=== PATIENT | female | born 1940 | race Caucasian/White ===

== ENCOUNTER 2016-04-19 15:50 | Outpatient (CLI) | payer MEDICARE, OTHER | END 2016-04-19 15:51 | disposition home or self-care (01) | DX: T14.90 Injury, unspecified (principal) ==

== ENCOUNTER 2016-07-15 09:08 | Day surgery (SDC) | payer MEDICARE, OTHER ==
[~2016-07-15 09:08] MED LIST: PHENYLEPHRINE 2.5% OPHTH 2 ML DROPS ONE
[2016-07-15] MEDS ORDERED: KETOROLAC 0.45% OPHTH DROPS OPTH ONE (10:01)
[2016-07-15] MEDS ORDERED: PROPARACAINE 0.5% OPHTH DROPS 15 ML OPTH ONE ×2 (10:01→10:27)
[2016-07-15] MEDS ORDERED: PHENYLEPHRINE 2.5% OPHTH 2 ML DROPS OPTH ONE (10:01)
[2016-07-15] MEDS ORDERED: CYCLOPENTOLATE 1% OPHTH DROPS 2 ML OPTH ONE (10:01)
[2016-07-15] MEDS ORDERED: LACTATED RINGERS 500 ML IV ONE (10:09)
[2016-07-15] MEDS ORDERED: BSS/LIDOCAINE/EPINEPHRINE 1 ML SYRINGE IO ONE ×2 (10:27)
[2016-07-15] MEDS ORDERED: EPINEPHrine 1 MG/ML AMP IVP ONE (10:27)
[2016-07-15] MEDS ORDERED: CHONDR SULF/HYALURONATE SYRINGE IO ONE (10:27)
[2016-07-15] MEDS ORDERED: TRIAMCIN/MOXIFLOX/VANCO 1 ML VIAL IO ONE ×2 (10:27)
[2016-07-15] MEDS ORDERED: BRIMONIDINE 0.2% OPHTH DROPS 5 ML OPTH ONE (10:27)
[2016-07-15] MEDS ORDERED: TIMOLOL 0.5% OPHTH DROPS OPTH ONE (10:27)
[2016-07-15] MEDS ORDERED: LIDOCAINE-MPF 2% 5 ML VIAL IM ONE (10:31)
[2016-07-15] MEDS ORDERED: PROPOFOL 200 MG/20 ML VIAL IVP ONE (10:31)
[2016-07-15] MEDS ORDERED: MIDAZOLAM 2 MG/2 ML VIAL IVP ONE (10:31)
[2016-07-15 10:57] VITALS: BP 137/60
--- NOTE | 2016-07-15 14:30 | OPERATIVE REPORT ---
DATE OF SURGERY: 07/15/2016 00:00:00 PREOPERATIVE DIAGNOSIS: Visually significant cataract, right eye. Cataract surgery was performed on t he left eye on 01/08/2016. POSTOPERATIVE DIAGNOSIS: Visually significant cataract, right eye. Cataract surgery was performed on the left eye on 01/08/2016. NAME OF PROCEDURE: Phacoemulsification posterior chamber intraocular lens implant, right eye with las er assist. SURGEON: Favian Hernandez MD. ANESTHESIA: Monitored anesthesia care. COMPLICATIONS: None. OPERATIVE INDICATIONS: This is a 76-year-old woman with progressive vision loss in the right eye due to 2+ nuclear sclerotic and 1+ posterior subcapsular and macular cataract. Best corrected visual acui ty was 20/20 with glare to 20/40 in the right eye. Indications for surgery were difficulty driving at night because of headlights from other vehicles or street lights and difficulty tracking a golf ball . She was consented at length concerning the risks and benefits of cataract surgery, after which she expressed a desire to proceed with surgery. OPERATIVE PROCEDURE: The patient was taken to OR #2 and placed under monitored anesthesia care. A jonathan gical time-out was conducted confirming the correct patient, correct procedure and correct surgical s ite. She was placed on the LenSx laser and her eye docked to the laser interface. The laser performed a capsulotomy, lens softening, phaco wounds, and arcuate keratotomy incisions. She was then moved to the operating microscope, given topical anesthesia, and then prepped and draped in the usual sterile fashion. The eye was entered at the 12 and 9 o'clock positions. Intracameral Shugarcaine was injecte d into the anterior chamber, followed by Viscoat. Capsulorrhexis flap created by the LenSx laser was removed from the anterior chamber. The nucleus was hydrodissected and phacoemulsified. The cortex was evacuated using automated infusion aspiration. Provisc was injected into the capsular bag and a 20.5 diopter intraocular lens was inserted into the bag. Approximately 0.8 mL of a mixture of triamcinolo ne, moxifloxacin, and vancomycin was injected subconjunctivally in the superior quadrant for infectio us and inflammation prophylaxis. I/A was used to evacuate the viscoelastic materials. The eye was inf lated to a physiologic pressure using balanced salt solution and found to be watertight. The patient was taken from the operating room in good condition and given postoperative instructions. JOB #: [id number] EXT JOB #:[id number]
== END 2016-07-15 09:09 | disposition home or self-care (01) ==
LOC: SDS 09:08
PROVIDERS: ATTEND Ophthalmology
PROC: 08RJ3JZ Replacement of Right Lens with Synthetic Substitute, Percutaneous Approach (ICD-10-PCS; principal; 2016-07-15 10:00)
DX: H25.811 Combined forms of age-related cataract, right eye (principal); I10 Essential (primary) hypertension; E11.9 Type 2 diabetes mellitus without complications; Z87.891 Personal history of nicotine dependence
CPT/HCPCS: 66984; A9270; V2632

== ENCOUNTER 2016-07-21 08:00 | Outpatient (CLI) | payer MEDICARE, OTHER | END 2016-07-21 23:59 | disposition home or self-care (01) | LOC: LAB.WCP 08:00 | PROVIDERS: ATTEND Physician Assistant Medical | DX: R31.0 Gross hematuria (principal) | CPT/HCPCS: 87086 ==

== ENCOUNTER 2016-07-26 17:16 | Outpatient (CLI) | payer MEDICARE, OTHER | END 2016-07-26 17:17 | disposition critical access hospital (66) | LOC: EMS 17:16 | PROVIDERS: ATTEND Surgery | DX: R20.2 Paresthesia of skin (principal); T36.95XA Adverse effect of unspecified systemic antibiotic, initial encounter | CPT/HCPCS: A0425; A0429 ==

== ENCOUNTER 2016-07-26 17:48 | Emergency (ER) | payer MEDICARE, OTHER ==
[2016-07-26 17:56] VITALS: BP 177/80
--- NOTE | 2016-07-26 18:01 | ED Physician Documentation ---
History of Present Illness - Stated complaint Stated Complaint: TINGLING NECK/FACEARMS - Chief complaint Chief Complaint: General - History obtained from History obtained from: Patient - Additonal information Additional information: Recently diagnosed with perioperative glaucoma cataract repair, started on a acetazolamide today and 20 minutes later developed diffuse tingling up and down the arms and across the shoulder blades which is now mostly resolved. Had already contacted the turntable operator office who recommends cessation of the acetazolamide until she is seen again tomorrow. Review of Systems Constitutional: denies: Fever, Chills Cardiac: denies: Chest pain / pressure, Palpitations Respiratory: denies: Dyspnea, Cough GI: denies: Abdominal Pain PD PAST MEDICAL HISTORY - Past Medical History Past Medical History: Yes Cardiovascular: Hypertension, High cholesterol Respiratory: None Endocrine/Autoimmune: Type 2 diabetes GI: None : Frequency HEENT: Other Psych: None Musculoskeletal: Osteoarthritis, Other Derm: Other - Past Surgical History Past Surgical History: Yes General: Cholecystectomy Ortho: Carpal Tunnel surgery - Present Medications Home Medications: Ambulatory Orders Medication Instructions Recorded Confirmed Aspirin [Aspir-Low] 1 tab PO DAILY 01/07/16 07/15/16 Atenolol 50 mg PO DAILY 01/07/16 07/15/16 Lisinopril 1 tab PO BID 01/07/16 07/15/16 metFORMIN [Glucophage] 0.5 tab PO QDBREAKFAST 01/07/16 07/15/16 metFORMIN [Glucophage] 1 tab PO QDDINNER 01/07/16 07/15/16 Insulin Glargine,Hum.rec.anlog 36 unit SQ DAILY 07/15/16 07/15/16 [Lantus] - Allergies Allergies/Adverse Reactions: Allergies Allergy/AdvReac Type Severity Reaction Status Date / Time No Known Drug Allergies Allergy Verified 01/07/16 14:00 - Social History Does the pt smoke?: No Smoking Status: Never smoker PD ED PE NORMAL - Vitals Vital signs reviewed: Yes - General General: Alert and oriented X 3, No acute distress - HEENT HEENT: Ears normal, Pharynx benign - Neck Neck: Supple, no meningeal sign, No bony TTP - Cardiac Cardiac: RRR, No murmur - Respiratory Respiratory: No respiratory distress, Clear bilaterally - Abdomen Abdomen: Non tender - Neuro Neuro: Alert and oriented X 3, ply cutter 2-12 intact, No motor deficit, No sensory deficit, Normal speech - Psych Psych: Normal mood, Normal affect Results - Vitals Vitals: Vital Signs - 24 hr 07/26/16 17:52 Temperature 36.6 C Heart Rate 73 Respiratory 18 Rate Blood Pressure 177/80 H O2 Saturation 98 Oxygen O2 Source Room air PD MEDICAL DECISION MAKING - ED course ED course: Since with resolving diffuse tingling, a medication side effect after a new medication which she will be held, there is already improvement in her symptoms without specific treatment. Departure - Departure Disposition: 01 Home, Self Care Clinical Impression: Medication side effect Condition: Good Record reviewed to determine appropriate education?: Yes Comments: Follow up with Dr. Hernandez tomorrow for replacement for the medication. Return if worse. Your blood pressure was elevated today on check in to the emergency department. This does not mean that you have hypertension, it is a common phenomenon to check into the emergency department and have elevated blood pressure. I recommend that you see your primary care physician within the week to have it rechecked when you're feeling better.
== END 2016-07-26 18:19 | disposition home or self-care (01) ==
LOC: EDUNIT# → ED 17:48
DX: R20.2 Paresthesia of skin (principal); T50.2X5A Adverse effect of carbonic-anhydrase inhibitors, benzothiadiazides and other diuretics, initial encounter; I10 Essential (primary) hypertension; E78.00 Pure hypercholesterolemia, unspecified; E11.9 Type 2 diabetes mellitus without complications; Z79.4 Long term (current) use of insulin; Z79.84 Long term (current) use of oral hypoglycemic drugs; M19.90 Unspecified osteoarthritis, unspecified site; Z79.82 Long term (current) use of aspirin
CPT/HCPCS: 99282; 99283

== ENCOUNTER 2016-08-13 05:21 | Outpatient (CLI) | payer MEDICARE, OTHER | END 2016-08-13 05:22 | disposition EMS.NT | LOC: EMS 05:21 | PROVIDERS: ATTEND Surgery | DX: Z03.89 Encounter for observation for other suspected diseases and conditions ruled out (principal); W06.XXXA Fall from bed, initial encounter; Y92.003 Bedroom of unspecified non-institutional (private) residence as the place of occurrence of the external cause ==

== ENCOUNTER 2016-09-16 09:38 | Outpatient (CLI) | payer MEDICARE, OTHER ==
[2016-09-16 12:54] LABS: ALBUMIN/GLOBULIN RATIO 1.2 (1.0-2.2); BILIRUBIN,TOTAL 0.8 mg/dL (0.2-1.0); BUN - BLOOD UREA NITROGEN 18 mg/dL (6-20); CALCIUM 9.2 mg/dL (8.5-10.3); CARBON DIOXIDE - CO2 29 mmol/L (21-32); CHLORIDE 105 mmol/L (101-111); CHOL/HDL RATIO 3.4 (<4.4); CHOLESTEROL 123 mg/dL; CREATININE 0.8 mg/dL (0.4-1.0); GFR - MDRD 70 (>89); GLUCOSE 102 mg/dL (70-100); HDL CHOLESTEROL 36 mg/dL; LDL/HDL RATIO 1.9 (<4.4); SODIUM 139 mmol/L (135-145); TOTAL PROTEIN 6.9 g/dL (6.7-8.2); TRIGLYCERIDES 101 mg/dL; VLDL CHOLESTEROL 20 mg/dL
[2016-09-16 13:09] LABS: HEMOGLOBIN A1C 0.57 g/dL
== END 2016-09-16 09:39 | disposition home or self-care (01) ==
LOC: LAB.WCP 09:38
PROVIDERS: ATTEND Physician Assistant Medical
DX: E11.9 Type 2 diabetes mellitus without complications (principal)
CPT/HCPCS: 36415; 80053; 80061; 83036

== ENCOUNTER 2016-11-09 09:58 | Outpatient (CLI) | payer MEDICARE, OTHER | END 2016-11-09 09:59 | disposition EMS.NT | LOC: EMS 09:58 | PROVIDERS: ATTEND Surgery | DX: Z03.89 Encounter for observation for other suspected diseases and conditions ruled out (principal); W05.0XXA Fall from non-moving wheelchair, initial encounter; Y92.003 Bedroom of unspecified non-institutional (private) residence as the place of occurrence of the external cause ==

== ENCOUNTER 2016-11-30 14:50 | Outpatient (CLI) | payer MEDICARE, OTHER | END 2016-11-30 14:51 | disposition critical access hospital (66) | LOC: EMS 14:50 | PROVIDERS: ATTEND Surgery | DX: R53.1 Weakness (principal) | CPT/HCPCS: A0425; A0427 ==

== ENCOUNTER 2016-11-30 15:24 | Emergency (ER) | payer MEDICARE, OTHER ==
--- NOTE | 2016-11-30 16:01 | ED Physician Documentation ---
History of Present Illness - Stated complaint Stated Complaint: WEAK - Chief complaint Chief Complaint: General - History obtained from History obtained from: Patient - History of Present Illness Timing: Other (This is a 76-year-old woman with glaucoma and type 2 diabetes, she is maintained on Lantus at night and she takes numerous blood pressure medications. She recently started on new medications for her glaucoma including atenolol, and over the last few days has had increasing weakness in the arms and legs not associated with shortness of breath, dizziness, or chest pain. Prior to arrival she was hypoglycemic and administered D50.) Review of Systems Ten Systems: 10 systems reviewed and negative Constitutional: denies: Fever, Chills Nose: denies: Rhinorrhea / runny nose, Congestion Cardiac: denies: Chest pain / pressure, Palpitations, Pedal edema, Calf pain Respiratory: denies: Hemoptysis GI: denies: Abdominal Pain, Vomiting PD PAST MEDICAL HISTORY - Past Medical History Past Medical History: Yes Cardiovascular: Hypertension, High cholesterol Respiratory: None Endocrine/Autoimmune: Type 2 diabetes GI: None : Frequency HEENT: Glaucoma, Other Psych: None Musculoskeletal: Osteoarthritis, Other Derm: Other - Past Surgical History Past Surgical History: Yes General: Cholecystectomy Ortho: Carpal Tunnel surgery - Present Medications Home Medications: Ambulatory Orders Medication Instructions Recorded Confirmed Aspirin [Aspir-Low] 1 tab PO DAILY 01/07/16 11/30/16 Atenolol 50 mg PO DAILY 01/07/16 11/30/16 Lisinopril 1 tab PO BID 01/07/16 11/30/16 Insulin Glargine,Hum.rec.anlog 36 unit SQ DAILY 07/15/16 11/30/16 [Lantus] Brinzolamide/Brimonidine Tart 1 drops Q4H 11/30/16 11/30/16 [Simbrinza 1%-0.2% Eye Drops] Furosemide 20 mg PO DAILY 11/30/16 11/30/16 Potassium Chloride [Micro-K] 10 meq PO 0800 11/30/16 11/30/16 Simvastatin 20 mg PO DAILY 11/30/16 11/30/16 Timolol 0.5% Ophth Drops [Timoptic 1 drops Q4H 11/30/16 11/30/16 0.5% Ophth Drops] Travoprost [Travatan Z] 1 drops OP Q4H 11/30/16 11/30/16 amLODIPine [Norvasc] 5 mg DAILY 11/30/16 11/30/16 metFORMIN [Glucophage] 1,275 mg PO BID 11/30/16 11/30/16 - Allergies Allergies/Adverse Reactions: Allergies Allergy/AdvReac Type Severity Reaction Status Date / Time No Known Drug Allergies Allergy Verified 01/07/16 14:00 - Social History Does the pt smoke?: No Smoking Status: Never smoker - Family History Family history: reports: Non contributory PD ED PE NORMAL - Vitals Vital signs reviewed: Yes - General General: Alert and oriented X 3 - HEENT HEENT: EOMI, Other (Smallish pupils) - Neck Neck: Supple, no meningeal sign, No bony TTP - Cardiac Cardiac: Other (Bradycardic but regular no murmur) - Respiratory Respiratory: No respiratory distress, Clear bilaterally - Abdomen Abdomen: Soft, Non tender - Back Back: No CVA TTP, No spinal TTP - Derm Derm: Normal color, Warm and dry - Extremities Extremities: No edema, No calf tenderness / cord - Neuro Neuro: Alert and oriented X 3, Normal speech - Psych Psych: Normal mood, Normal affect Results - Vitals Vitals: Vital Signs - 24 hr 11/30/16 11/30/16 11/30/16 15:27 16:00 17:00 Temperature Heart Rate 49 L 47 L 47 L Respiratory 16 20 18 Rate Blood Pressure 116/48 L 114/43 L 127/60 O2 Saturation 95 94 20 L 11/30/16 11/30/16 11/30/16 18:00 19:09 19:14 Temperature 35.0 C L Heart Rate 48 L 48 L 47 L Respiratory 17 18 13 Rate Blood Pressure 127/55 L 118/42 L 129/49 L O2 Saturation 98 100 100 11/30/16 11/30/16 19:56 21:50 Temperature 36.3 C L Heart Rate 54 L 59 L Respiratory 17 16 Rate Blood Pressure 113/46 L 114/60 O2 Saturation 95 96 Oxygen O2 Source Room air - EKG (time done) 1537 Rate: Rate (enter#) (49) Rhythm: Sinus bradycardia, SVT Intervals: Normal NH QRS: LVH Ischemia: Normal ST segments Computer interpretation: Agree with computer - Labs Labs: Laboratory Tests 11/30/16 11/30/16 11/30/16 16:10 16:10 16:10 WBC 6.4 RBC 4.33 Hgb 11.9 L Hct 37.8 MCV 87.4 MCH 27.5 MCHC 31.5 L RDW 18.7 H Plt Count 188 MPV 9.8 Neut # 4.9 Lymph # 1.1 L [place] # 0.4 Eos # 0.1 Baso # 0.0 Absolute Nucleated RBC 0.04 Nucleated RBC % 0.6 Sodium 138 Potassium 4.2 Chloride 112 H Carbon Dioxide 18 L Anion Gap 8.0 BUN 58 H Creatinine 1.0 Estimated GFR (MDRD) 54 L Glucose 233 H Calcium 9.7 Magnesium 2.0 Total Bilirubin 0.5 AST 32 ALT 40 Alkaline Phosphatase 91 Troponin I < 0.04 Total Protein 7.2 Albumin 3.6 Globulin 3.6 Albumin/Globulin Ratio 1.0 Lipase 32 Urine Color Urine Clarity Urine pH Ur Specific [place] Urine Protein Urine Glucose (UA) Urine Ketones Urine Occult Blood Urine Nitrite Urine Bilirubin Urine Urobilinogen Ur Leukocyte Esterase Ur Microscopic Review Urine Culture Comments 11/30/16 19:30 WBC RBC Hgb Hct MCV MCH MCHC RDW Plt Count MPV Neut # Lymph # [place] # Eos # Baso # Absolute Nucleated RBC Nucleated RBC % Sodium Potassium Chloride Carbon Dioxide Anion Gap BUN Creatinine Estimated GFR (MDRD) Glucose Calcium Magnesium Total Bilirubin AST ALT Alkaline Phosphatase Troponin I Total Protein Albumin Globulin Albumin/Globulin Ratio Lipase Urine Color YELLOW Urine Clarity CLEAR Urine pH 6.0 Ur Specific [place] 1.025 Urine Protein NEGATIVE Urine Glucose (UA) 100 H Urine Ketones NEGATIVE Urine Occult Blood NEGATIVE Urine Nitrite NEGATIVE Urine Bilirubin NEGATIVE Urine Urobilinogen 0.2 (NORMAL) Ur Leukocyte Esterase NEGATIVE Ur Microscopic Review NOT INDICATED Urine Culture Comments NOT INDICATED PD MEDICAL DECISION MAKING - ED course ED course: Spoke with Dr Hoffman, well control instructor for her african studies professor, ok to stop timolol. (2617 ) 76-year-old woman with generalized weakness, this is associated with very mild bradycardia into the high 40s probably from atenolol in addition to her atenolol. She also had some modest hypoglycemia prior to arrival, 69 which remained high throughout her emergency department stay. Departure - Departure Disposition: 01 Home, Self Care Clinical Impression: Bradycardia, Weakness Condition: Good Record reviewed to determine appropriate education?: Yes Comments: You should stop the timolol, this is 1 of your new eyedrops. This was authorized by the whiskey regauger on-call for your african studies professor. Follow-up with your african studies professor, next available appointment to recheck your eye pressures. Return if worse. Check your blood sugars frequently and return if low. Discharge Date/Time: 11/30/16 21:55
[2016-11-30 16:16] LABS: BASOPHILS % (AUTO) 0.4 %; EOSINOPHILS # (AUTO) 0.1 10^3/uL (0.0-0.7); EOSINOPHILS % (AUTO) 1.2 %; HCT - HEMATOCRIT 37.8 % (37.0-47.0); HGB - HEMOGLOBIN 11.9 g/dL (12.0-16.0); LYMPHOCYTES # (AUTO) 1.1 10^3/uL (1.5-3.5); LYMPHOCYTES % (AUTO) 16.6 %; MEAN CORPUSCULAR HEMOGLOBIN 27.5 pg (27.0-31.0); MEAN CORPUSCULAR HGB CONC 31.5 g/dL (32.0-36.0); MEAN CORPUSCULAR VOLUME 87.4 fL (81.0-99.0); MEAN PLATELET VOLUME 9.8 fL (7.9-10.8); MONOCYTES # (AUTO) 0.4 10^3/uL (0.0-1.0); NEUTROPHILS # (AUTO) 4.9 10^3/uL (1.5-6.6); NEUTROPHILS % (AUTO) 75.8 %; NUCLEATED RED BLOOD CELLS AUTO 0.6 /100WBC; RED BLOOD COUNT 4.33 10^6/uL (4.20-5.40); RED CELL DISTRIBUTION WIDTH 18.7 % (12.0-15.0); UNCORRECTED WHITE BLOOD COUNT 6.4 x10^3/uL; WHITE BLOOD COUNT 6.4 x10^3/uL (4.8-10.8)
[2016-11-30 16:31] LABS: BILIRUBIN,TOTAL 0.5 mg/dL (0.2-1.0); CALCIUM 9.7 mg/dL (8.5-10.3); POTASSIUM 4.2 mmol/L (3.5-5.0); TOTAL PROTEIN 7.2 g/dL (6.7-8.2)
[2016-11-30 19:42] LABS: BILIRUBIN,URINE NEGATIVE (NEGATIVE); UA CHARGE (STRIP ONLY) YES; UR CULTURE IF IND NOT INDICATED
[2016-11-30 22:00] VITALS: BP 114/60
== END 2016-11-30 21:55 | disposition home or self-care (01) ==
LOC: EDUNIT# → ED 15:24
DX: R00.1 Bradycardia, unspecified (principal); R53.1 Weakness; E11.39 Type 2 diabetes mellitus with other diabetic ophthalmic complication; H40.9 Unspecified glaucoma; E11.649 Type 2 diabetes mellitus with hypoglycemia without coma; I10 Essential (primary) hypertension; E78.00 Pure hypercholesterolemia, unspecified; Z79.82 Long term (current) use of aspirin; Z79.4 Long term (current) use of insulin
CPT/HCPCS: 36415; 51701; 80053; 81001; 81003; 83690; 83735; 84484; 85025; 87086; 93005; 99284; 99285

== ENCOUNTER 2016-12-03 08:24 | Outpatient (CLI) | payer MEDICARE, OTHER | END 2016-12-03 08:25 | disposition critical access hospital (66) | LOC: EMS 08:24 | PROVIDERS: ATTEND Surgery | DX: M54.5 Low back pain (principal) ==

== ENCOUNTER 2016-12-03 08:52 | Inpatient (IN) | payer MEDICARE, OTHER ==
[2016-12-03 09:23] LABS: BASOPHILS % (AUTO) 0.3 %; EOSINOPHILS # (AUTO) 0.1 10^3/uL (0.0-0.7); EOSINOPHILS % (AUTO) 0.8 %; HCT - HEMATOCRIT 36.8 % (37.0-47.0); LYMPHOCYTES # (AUTO) 0.7 10^3/uL (1.5-3.5); LYMPHOCYTES % (AUTO) 8.8 %; MEAN CORPUSCULAR HEMOGLOBIN 27.8 pg (27.0-31.0); MEAN CORPUSCULAR HGB CONC 32.6 g/dL (32.0-36.0); MEAN CORPUSCULAR VOLUME 85.3 fL (81.0-99.0); MEAN PLATELET VOLUME 10.1 fL (7.9-10.8); MONOCYTES # (AUTO) 0.4 10^3/uL (0.0-1.0); MONOCYTES % (AUTO) 4.6 %; NEUTROPHILS # (AUTO) 7.1 10^3/uL (1.5-6.6); NEUTROPHILS % (AUTO) 85.5 %; NUCLEATED RED BLOOD CELLS AUTO 0.5 /100WBC; RED BLOOD COUNT 4.32 10^6/uL (4.20-5.40); RED CELL DISTRIBUTION WIDTH 18.5 % (12.0-15.0); UNCORRECTED WHITE BLOOD COUNT 8.3 x10^3/uL; WHITE BLOOD COUNT 8.3 x10^3/uL (4.8-10.8)
[2016-12-03] MEDS ORDERED: SODIUM CHLORIDE FLUSH 0.9% 10 ML SYRINGE IVP ONE ×2 (09:27)
[2016-12-03 09:32] LABS: CALCIUM 9.6 mg/dL (8.5-10.3); CREATININE 0.8 mg/dL (0.4-1.0); POTASSIUM 3.8 mmol/L (3.5-5.0)
--- NOTE | 2016-12-03 10:15 | ED Physician Documentation ---
History of Present Illness - Stated complaint Stated Complaint: BACK PAIN - Chief complaint Chief Complaint: Back Pain - Additonal information Additional information: hx from pt 76 f this AM she tried to get up from bed with walker and fell back across the bed pain to low back SI region renetta no head neck chest abd pain / injury also fell a few days ago has a walker no lifeline (but would like info) no recent fever cough NVD only med change recently was eye gtt per EMS her blood sugar was 69 - they gave oral glucose and got it up to 80 lives at home alone Review of Systems Constitutional: denies: Fever, Chills Cardiac: denies: Chest pain / pressure Respiratory: denies: Dyspnea GI: denies: Abdominal Pain, Nausea, Vomiting : denies: Dysuria Musculoskeletal: reports: Back pain. denies: Neck pain Neurologic: reports: Generalized weakness. denies: Focal weakness, Numbness, Headache, Head injury Endocrine: denies: Easy bruising / bleeding Immunocompromised: denies: Immunocompromised PD PAST MEDICAL HISTORY - Past Medical History Cardiovascular: Hypertension, High cholesterol Respiratory: None Endocrine/Autoimmune: Type 2 diabetes GI: None : Frequency HEENT: Glaucoma, Other Psych: None Musculoskeletal: Osteoarthritis, Other Derm: Other - Past Surgical History Past Surgical History: Yes General: Cholecystectomy Ortho: Carpal Tunnel surgery - Present Medications Home Medications: Ambulatory Orders Medication Instructions Recorded Confirmed Aspirin [Aspir-Low] 1 tab PO DAILY 01/07/16 12/03/16 Atenolol 50 mg PO DAILY 01/07/16 12/03/16 Lisinopril 1 tab PO BID 01/07/16 12/03/16 Insulin Glargine,Hum.rec.anlog 36 unit SQ DAILY 07/15/16 12/03/16 [Lantus] Brinzolamide/Brimonidine Tart 1 drops Q4H 11/30/16 12/03/16 [Simbrinza 1%-0.2% Eye Drops] Furosemide 20 mg PO DAILY 11/30/16 12/03/16 Potassium Chloride [Micro-K] 10 meq PO 0800 11/30/16 12/03/16 Simvastatin 20 mg PO DAILY 11/30/16 12/03/16 Timolol 0.5% Ophth Drops [Timoptic 1 drops Q4H 11/30/16 12/03/16 0.5% Ophth Drops] Travoprost [Travatan Z] 1 drops OP Q4H 11/30/16 12/03/16 amLODIPine [Norvasc] 5 mg DAILY 11/30/16 12/03/16 metFORMIN [Glucophage] 1,275 mg PO BID 11/30/16 12/03/16 - Allergies Allergies/Adverse Reactions: Allergies Allergy/AdvReac Type Severity Reaction Status Date / Time No Known Drug Allergies Allergy Verified 12/03/16 09:01 - Social History Does the pt smoke?: No Smoking Status: Never smoker PD ED PE NORMAL - Vitals Vital signs reviewed: Yes - General General: Alert and oriented X 3 - HEENT HEENT: Atraumatic, PERRL - Neck Neck: No bony TTP - Cardiac Cardiac: RRR - Respiratory Respiratory: No respiratory distress, Clear bilaterally - Abdomen Abdomen: Soft, Non tender - Back Back: No spinal TTP, Other (no TTP at all now but pt indictaes she has pain to renetta SO region when she tried to stand) - Derm Derm: Normal color - Extremities Extremities: No deformity, Other (hips full ROM s pain not short or rotated) - Neuro Neuro: Alert and oriented X 3, No motor deficit, No sensory deficit Results - Vitals Vitals: Vital Signs - 24 hr 12/03/16 12/03/16 12/03/16 08:55 11:59 13:23 Temperature 35.8 C L Heart Rate 56 L 89 56 L Respiratory 22 18 20 Rate Blood Pressure 125/57 L 143/53 H 134/60 H O2 Saturation 100 99 97 12/03/16 15:09 Temperature Heart Rate 95 Respiratory 16 Rate Blood Pressure 159/90 H O2 Saturation 100 Oxygen O2 Source Room air - Labs Labs: Laboratory Tests 12/03/16 12/03/16 12/03/16 09:18 09:18 09:18 WBC 8.3 RBC 4.32 Hgb 12.0 Hct 36.8 L MCV 85.3 MCH 27.8 MCHC 32.6 RDW 18.5 H Plt Count 165 MPV 10.1 Neut # 7.1 H Lymph # 0.7 L [place] # 0.4 Eos # 0.1 Baso # 0.0 Absolute Nucleated RBC 0.04 Nucleated RBC % 0.5 Sodium 143 Potassium 3.8 Chloride 117 H Carbon Dioxide 21 Anion Gap 5.0 L BUN 55 H Creatinine 0.8 Estimated GFR (MDRD) 70 L Glucose 126 H Calcium 9.6 Troponin I < 0.04 Urine Color Urine Clarity Urine pH Ur Specific [place] Urine Protein Urine Glucose (UA) Urine Ketones Urine Occult Blood Urine Nitrite Urine Bilirubin Urine Urobilinogen Ur Leukocyte Esterase Ur Microscopic Review Urine Culture Comments 12/03/16 14:10 WBC RBC Hgb Hct MCV MCH MCHC RDW Plt Count MPV Neut # Lymph # [place] # Eos # Baso # Absolute Nucleated RBC Nucleated RBC % Sodium Potassium Chloride Carbon Dioxide Anion Gap BUN Creatinine Estimated GFR (MDRD) Glucose Calcium Troponin I Urine Color YELLOW Urine Clarity CLEAR Urine pH 6.0 Ur Specific [place] 1.025 Urine Protein NEGATIVE Urine Glucose (UA) NEGATIVE Urine Ketones NEGATIVE Urine Occult Blood NEGATIVE Urine Nitrite NEGATIVE Urine Bilirubin NEGATIVE Urine Urobilinogen 0.2 (NORMAL) Ur Leukocyte Esterase NEGATIVE Ur Microscopic Review NOT INDICATED Urine Culture Comments NOT INDICATED PD MEDICAL DECISION MAKING - ED course ED course: several falls this week - not normal per pt, blood sugar low per EMS, will check labs, may need to dec pt diabetes meds pt given food and blood suagr stayed up back pain had resolved and xray neg met with SW to discuss placement but pt declined did provide a [facility] pamphlet and SW spoke to Care Management who asisted juwan pt enrolled in Home Health for PT wound care etc she already has meals on Wheels Departure - Departure Disposition: Home, Self Care Clinical Impression: Fall, Hypoglycemia Condition: Good Instructions: Falls Prevent Prepare What Do, Falls Risks Prevent, ED Fall Dizziness Weakn Balance, ED Diabetes Hypoglycemia Insulin React Follow-Up: Nella Muñiz PA-C [Primary Care Provider] - (Tuesday for a recheck ) Comments: Your blood sugar is getting too low at night and I think that is part of the reason you are so weak. You can continue your metformin but please cut your nightly lantus insulin down to 24 units Keep a log of your blood sugars and follow up with your PMD next week to dicuss medications I am concerned about your safety because you have a hard time getting around even with a walker and you live alone. So the family welfare social work professor met with you to discuss placement in assisted living or a skilled nursing but you have declined at this time. I did provide you with a brochure to order a [facility] which I strongly encourage you to get I also spoke with care management and since you are housebound, there are services that you can get to help you in the house - physical therapy, social work, wound care etc. This will serve as a referral to [facility] for nursing services, wound care, physical therapy and a social work visit
--- NOTE | 2016-12-03 11:13 | XRAY Preliminary Report ---
Exam: XR PELVIS 1 VIEW IMPRESSION: 1. No obvious acute fracture or bony malalignment. Consider further evaluation if high level of clini nemo suspicion. [facility] SITE ID: [id number]
--- NOTE | 2016-12-03 11:15 | XRAY Report ---
EXAM: PELVIS RADIOGRAPHY EXAM DATE: 12/03/2016 10:50 AM. CLINICAL HISTORY: Fall. COMPARISON: None. TECHNIQUE: 1 view. FINDINGS: Bones: No obvious fracture. Joints: No subluxation. Bilateral hip joints are well preserved for age. Intact pubic symphysis and g rossly symmetrical SI joints. Other: Degenerative changes visualized lower lumbar spine. IMPRESSION: 1. No obvious acute fracture or bony malalignment. Consider further evaluation if high level of clini nemo suspicion. [facility] Referring Provider Line: [phone] SITE ID: [id number]
[2016-12-03 15:26] LABS: BILIRUBIN,URINE NEGATIVE (NEGATIVE)
[2016-12-03 15:28] LABS: UA CHARGE (STRIP ONLY) YES; UR CULTURE IF IND NOT INDICATED
[2016-12-03] MEDS ORDERED: metFORMIN 500 MG TABLET PO STA (19:21)
--- NOTE | 2016-12-03 19:27 | XRAY Preliminary Report ---
Exam: XR CHEST 1 VIEW IMPRESSION: Mild cardiomegaly and moderate vascular congestion. [facility] SITE ID: [id number]
--- NOTE | 2016-12-03 19:34 | XRAY Report ---
EXAM: CHEST RADIOGRAPHY EXAM DATE: 12/03/2016 07:04 PM. CLINICAL HISTORY: Weakness. COMPARISON: None. TECHNIQUE: 1 view. FINDINGS: Lungs/Pleura: Moderate vascular congestion. No effusion, focal consolidation or pneumothorax. Mediastinum: Mild cardiomegaly. No adenopathy. Other: None. IMPRESSION: Mild cardiomegaly and moderate vascular congestion. [facility] Referring Provider Line: [phone] SITE ID: [id number]
[2016-12-03] MEDS ORDERED: metFORMIN 500 MG TABLET ONE (19:48)
[2016-12-04 05:14] LABS: PH,URINE 5.5 PH (5.0-7.5)
[2016-12-04 05:15] LABS: UA w/ MICROSCOPIC CHARGE YES
[2016-12-04 05:17] LABS: BILIRUBIN,URINE NEGATIVE (NEGATIVE)
[2016-12-04 05:19] LABS: UR CULTURE IF IND NOT INDICATED; WBC,URINE 0-3 /HPF (0-5)
[2016-12-04] MEDS ORDERED: DEXTROSE 50% ABBOJECT 25 GM/50 ML SYRINGE ONE (07:17)
[2016-12-04] MEDS ORDERED: DEXTROSE 25% ABBOJECT 2.5 GM/10 ML SYRINGE IVP STA (07:23)
[2016-12-04] MEDS ORDERED: DEXTROSE 50% ABBOJECT 25 GM/50 ML SYRINGE IVP STA (07:25)
[2016-12-04] MEDS ORDERED: SODIUM CHLORIDE 0.9% 1,000 ML IV ONE ×2 (08:08→14:23)
--- NOTE | 2016-12-04 08:10 | ED Physician Documentation ---
History of Present Illness - Stated complaint Stated Complaint: BACK PAIN - Chief complaint Chief Complaint: Back Pain - History obtained from History obtained from: Patient - History of Present Illness Timing: How many weeks ago (4) - Additonal information Additional information: 76-year-old female with a history of gradually increasing weakness is now not able sit up in bed by herself and not able to get out of bed by herself. She does state that she has decreased amount of oral intake of fluids.She has been kept in the emergency department overnight as as it is not safe to send the patient home with this level of weakness. She is unable to care for herself. On review of her record she has had an elevated BUN consistent with significant dehydration with a normal creatinine this persisted for the past week. Review of Systems Unable to obtain: Confused PD PAST MEDICAL HISTORY - Past Medical History Cardiovascular: Hypertension, High cholesterol Respiratory: None Endocrine/Autoimmune: Type 2 diabetes GI: None : Frequency HEENT: Glaucoma, Other Psych: None Musculoskeletal: Osteoarthritis, Other Derm: Other - Past Surgical History Past Surgical History: Yes General: Cholecystectomy Ortho: Carpal Tunnel surgery - Present Medications Home Medications: Ambulatory Orders Medication Instructions Recorded Confirmed Aspirin [Aspir-Low] 1 tab PO DAILY 01/07/16 12/03/16 Atenolol 50 mg PO DAILY 01/07/16 12/03/16 Lisinopril 1 tab PO BID 01/07/16 12/03/16 Insulin Glargine,Hum.rec.anlog 36 unit SQ DAILY 07/15/16 12/03/16 [Lantus] Brinzolamide/Brimonidine Tart 1 drops Q4H 11/30/16 12/03/16 [Simbrinza 1%-0.2% Eye Drops] Furosemide 20 mg PO DAILY 11/30/16 12/03/16 Potassium Chloride [Micro-K] 10 meq PO 0800 11/30/16 12/03/16 Simvastatin 20 mg PO DAILY 11/30/16 12/03/16 Timolol 0.5% Ophth Drops [Timoptic 1 drops Q4H 11/30/16 12/03/16 0.5% Ophth Drops] Travoprost [Travatan Z] 1 drops OP Q4H 11/30/16 12/03/16 amLODIPine [Norvasc] 5 mg DAILY 11/30/16 12/03/16 metFORMIN [Glucophage] 1,275 mg PO BID 11/30/16 12/03/16 - Allergies Allergies/Adverse Reactions: Allergies Allergy/AdvReac Type Severity Reaction Status Date / Time No Known Drug Allergies Allergy Verified 12/03/16 09:01 - Social History Does the pt smoke?: No Smoking Status: Never smoker PD ED PE NORMAL - Vitals Vital signs reviewed: Yes (Hypotensive and bradycardic) - General General: Well developed/nourished, Other (76-year-old female laying supine with her eyes closed dry mucous membranes and audible wheeze has decreased responsiveness but is able to answer questions appropriately. She does have oxygen running in her mouth. She is wearing gloves and has a Acevedo catheter in place. She looks debilitated and is not able to sit up in the bed.) - HEENT HEENT: Atraumatic, PERRL, EOMI, Other - Neck Neck: Supple, no meningeal sign (Dry mucous membranes), No bony TTP - Cardiac Cardiac: Other (Bradycardic) - Respiratory Respiratory: No respiratory distress, Other - Abdomen Abdomen: Soft (Diminished breath sounds bilaterally), Non tender - Derm Derm: Normal color, Warm and dry, No rash - Extremities Extremities: No deformity, No edema - Neuro Neuro: No motor deficit, No sensory deficit - Psych Psych: Other (Mood is withdrawn the affect is flat) Results - Vitals Vitals: Vital Signs - 24 hr 12/04/16 12/04/16 12/05/16 20:05 20:47 04:05 Temperature 36.1 C L 36.3 C L Heart Rate 72 67 67 Respiratory 18 22 18 Rate Blood Pressure 167/78 H 151/73 H 143/67 H O2 Saturation 96 97 12/05/16 12/05/16 12/05/16 06:51 08:05 08:25 Temperature 36.7 C Heart Rate 67 Respiratory 16 Rate Blood Pressure 147/72 H O2 Saturation 97 95 86 L 12/05/16 09:59 Temperature Heart Rate 65 Respiratory Rate Blood Pressure 130/57 L O2 Saturation 92 Oxygen O2 Source Nasal cannula - Labs Labs: Laboratory Tests 12/03/16 12/03/16 12/03/16 09:12 09:18 09:18 WBC 8.3 RBC 4.32 Hgb 12.0 Hct 36.8 L MCV 85.3 MCH 27.8 MCHC 32.6 RDW 18.5 H Plt Count 165 MPV 10.1 Neut # 7.1 H Lymph # 0.7 L [place] # 0.4 Eos # 0.1 Baso # 0.0 Absolute Nucleated RBC 0.04 Nucleated RBC % 0.5 Bld Gas Analysis Time Sample Site ABG pH ABG pCO2 ABG pO2 ABG HCO3 ABG Total CO2 ABG O2 Saturation ABG Oximetry Spot Check ABG Base Excess Alexei Test O2 Delivery Device O2 Liters/Min Sodium 143 Potassium 3.8 Chloride 117 H Carbon Dioxide 21 Anion Gap 5.0 L BUN 55 H Creatinine 0.8 Estimated GFR (MDRD) 70 L Glucose 126 H POC Whole Bld Glucose 85 Calcium 9.6 Magnesium Total Bilirubin AST ALT Alkaline Phosphatase Total Creatine Kinase Troponin I B-Natriuretic Peptide Total Protein Albumin Globulin Albumin/Globulin Ratio Lipase Urine Color Urine Clarity Urine pH Ur Specific [place] Urine Protein Urine Glucose (UA) Urine Ketones Urine Occult Blood Urine Nitrite Urine Bilirubin Urine Urobilinogen Ur Leukocyte Esterase Urine RBC Urine WBC Ur Squamous Epith Cells Urine Bacteria Ur Microscopic Review Urine Culture Comments 12/03/16 12/03/16 12/03/16 09:18 10:32 11:03 WBC RBC Hgb Hct MCV MCH MCHC RDW Plt Count MPV Neut # Lymph # [place] # Eos # Baso # Absolute Nucleated RBC Nucleated RBC % Bld Gas Analysis Time Sample Site ABG pH ABG pCO2 ABG pO2 ABG HCO3 ABG Total CO2 ABG O2 Saturation ABG Oximetry Spot Check ABG Base Excess Alexei Test O2 Delivery Device O2 Liters/Min Sodium Potassium Chloride Carbon Dioxide Anion Gap BUN Creatinine Estimated GFR (MDRD) Glucose POC Whole Bld Glucose 115 H 142 H Calcium Magnesium Total Bilirubin AST ALT Alkaline Phosphatase Total Creatine Kinase Troponin I < 0.04 B-Natriuretic Peptide Total Protein Albumin Globulin Albumin/Globulin Ratio Lipase Urine Color Urine Clarity Urine pH Ur Specific [place] Urine Protein Urine Glucose (UA) Urine Ketones Urine Occult Blood Urine Nitrite Urine Bilirubin Urine Urobilinogen Ur Leukocyte Esterase Urine RBC Urine WBC Ur Squamous Epith Cells Urine Bacteria Ur Microscopic Review Urine Culture Comments 12/03/16 12/03/16 12/03/16 14:10 14:38 19:15 WBC RBC Hgb Hct MCV MCH MCHC RDW Plt Count MPV Neut # Lymph # [place] # Eos # Baso # Absolute Nucleated RBC Nucleated RBC % Bld Gas Analysis Time Sample Site ABG pH ABG pCO2 ABG pO2 ABG HCO3 ABG Total CO2 ABG O2 Saturation ABG Oximetry Spot Check ABG Base Excess Alexei Test O2 Delivery Device O2 Liters/Min Sodium Potassium Chloride Carbon Dioxide Anion Gap BUN Creatinine Estimated GFR (MDRD) Glucose POC Whole Bld Glucose 123 H 130 H Calcium Magnesium Total Bilirubin AST ALT Alkaline Phosphatase Total Creatine Kinase Troponin I B-Natriuretic Peptide Total Protein Albumin Globulin Albumin/Globulin Ratio Lipase Urine Color YELLOW Urine Clarity CLEAR Urine pH 6.0 Ur Specific [place] 1.025 Urine Protein NEGATIVE Urine Glucose (UA) NEGATIVE Urine Ketones NEGATIVE Urine Occult Blood NEGATIVE Urine Nitrite NEGATIVE Urine Bilirubin NEGATIVE Urine Urobilinogen 0.2 (NORMAL) Ur Leukocyte Esterase NEGATIVE Urine RBC Urine WBC Ur Squamous Epith Cells Urine Bacteria Ur Microscopic Review NOT INDICATED Urine Culture Comments NOT INDICATED 12/04/16 12/04/16 12/04/16 04:45 04:50 04:51 WBC RBC Hgb Hct MCV MCH MCHC RDW Plt Count MPV Neut # Lymph # [place] # Eos # Baso # Absolute Nucleated RBC Nucleated RBC % Bld Gas Analysis Time Sample Site ABG pH ABG pCO2 ABG pO2 ABG HCO3 ABG Total CO2 ABG O2 Saturation ABG Oximetry Spot Check ABG Base Excess Alexei Test O2 Delivery Device O2 Liters/Min Sodium Potassium Chloride Carbon Dioxide Anion Gap BUN Creatinine Estimated GFR (MDRD) Glucose POC Whole Bld Glucose 65 L Calcium Magnesium Total Bilirubin AST ALT Alkaline Phosphatase Total Creatine Kinase 35 Troponin I B-Natriuretic Peptide Total Protein Albumin Globulin Albumin/Globulin Ratio Lipase Urine Color BROWN Urine Clarity HAZY Urine pH 5.5 Ur Specific [place] >=1.030 H Urine Protein 100 H Urine Glucose (UA) NEGATIVE Urine Ketones TRACE Urine Occult Blood LARGE H Urine Nitrite NEGATIVE Urine Bilirubin NEGATIVE Urine Urobilinogen 0.2 (NORMAL) Ur Leukocyte Esterase NEGATIVE Urine RBC TNTC H Urine WBC 0-3 Ur Squamous Epith Cells RARE Squamous Urine Bacteria Rare Ur Microscopic Review INDICATED Urine Culture Comments NOT INDICATED 12/04/16 12/04/16 12/04/16 07:04 08:44 10:21 WBC RBC Hgb Hct MCV MCH MCHC RDW Plt Count MPV Neut # Lymph # [place] # Eos # Baso # Absolute Nucleated RBC Nucleated RBC % Bld Gas Analysis Time Sample Site ABG pH ABG pCO2 ABG pO2 ABG HCO3 ABG Total CO2 ABG O2 Saturation ABG Oximetry Spot Check ABG Base Excess Alexei Test O2 Delivery Device O2 Liters/Min Sodium Potassium Chloride Carbon Dioxide Anion Gap BUN Creatinine Estimated GFR (MDRD) Glucose POC Whole Bld Glucose 59 L* 75 Calcium Magnesium Total Bilirubin AST ALT Alkaline Phosphatase Total Creatine Kinase Troponin I B-Natriuretic Peptide 381 H Total Protein Albumin Globulin Albumin/Globulin Ratio Lipase Urine Color Urine Clarity Urine pH Ur Specific [place] Urine Protein Urine Glucose (UA) Urine Ketones Urine Occult Blood Urine Nitrite Urine Bilirubin Urine Urobilinogen Ur Leukocyte Esterase Urine RBC Urine WBC Ur Squamous Epith Cells Urine Bacteria Ur Microscopic Review Urine Culture Comments 12/04/16 12/04/16 12/05/16 21:17 21:17 08:24 WBC 8.0 RBC 4.62 Hgb 12.8 Hct 39.1 MCV 84.7 MCH 27.6 MCHC 32.6 RDW 19.2 H Plt Count 179 MPV 9.5 Neut # 6.8 H Lymph # 1.0 L [place] # 0.2 Eos # 0.0 Baso # 0.0 Absolute Nucleated RBC 0.08 Nucleated RBC % 1.0 Bld Gas Analysis Time Sample Site ABG pH ABG pCO2 ABG pO2 ABG HCO3 ABG Total CO2 ABG O2 Saturation ABG Oximetry Spot Check ABG Base Excess Alexei Test O2 Delivery Device O2 Liters/Min Sodium 147 H Potassium 3.7 Chloride 118 H Carbon Dioxide 19 L Anion Gap 10.0 BUN 48 H Creatinine 1.0 Estimated GFR (MDRD) 54 L Glucose 91 POC Whole Bld Glucose 82 Calcium 9.3 Magnesium 1.6 L Total Bilirubin 0.9 AST 26 ALT 29 Alkaline Phosphatase 102 Total Creatine Kinase Troponin I B-Natriuretic Peptide Total Protein 7.0 Albumin 3.3 Globulin 3.7 Albumin/Globulin Ratio 0.9 L Lipase 45 Urine Color Urine Clarity Urine pH Ur Specific [place] Urine Protein Urine Glucose (UA) Urine Ketones Urine Occult Blood Urine Nitrite Urine Bilirubin Urine Urobilinogen Ur Leukocyte Esterase Urine RBC Urine WBC Ur Squamous Epith Cells Urine Bacteria Ur Microscopic Review Urine Culture Comments 12/05/16 11:55 WBC RBC Hgb Hct MCV MCH MCHC RDW Plt Count MPV Neut # Lymph # [place] # Eos # Baso # Absolute Nucleated RBC Nucleated RBC % Bld Gas Analysis Time 1155 Sample Site RIGHT RADIAL ABG pH 7.35 ABG pCO2 31 L ABG pO2 65 L ABG HCO3 17.0 L ABG Total CO2 18.0 L ABG O2 Saturation 92 L ABG Oximetry Spot Check 94 ABG Base Excess -7.4 L Alexei Test POSITIVE O2 Delivery Device NASAL CANNULA O2 Liters/Min 3.00 Sodium Potassium Chloride Carbon Dioxide Anion Gap BUN Creatinine Estimated GFR (MDRD) Glucose POC Whole Bld Glucose Calcium Magnesium Total Bilirubin AST ALT Alkaline Phosphatase Total Creatine Kinase Troponin I B-Natriuretic Peptide Total Protein Albumin Globulin Albumin/Globulin Ratio Lipase Urine Color Urine Clarity Urine pH Ur Specific [place] Urine Protein Urine Glucose (UA) Urine Ketones Urine Occult Blood Urine Nitrite Urine Bilirubin Urine Urobilinogen Ur Leukocyte Esterase Urine RBC Urine WBC Ur Squamous Epith Cells Urine Bacteria Ur Microscopic Review Urine Culture Comments - Rads (name of study) 2 veiw chest Radiology: Prelim report reviewed (Impression: 1. Progressive fairly extensive bilateral airspace process, left greater than right, question inflammatory/ infectious, edema somewhat less likely. 2. Stable mild cardiomegaly.), EMP read indepedently, See rad report Procedures - IVC sono (time) 0805 Bedside IVC sono: IVC measures (cm) (0.87), IVC collapsed c insp (cm) (complete) , Dehydration 0805 03-07-16 Bedside IVC sono: IVC measures (cm) (1.46), IVC collapsed c insp (cm) (1.02), Collapsibility index (0.30), Euvolemia PD MEDICAL DECISION MAKING - ED course Complexity details: reviewed old records, reviewed results, re-evaluated patient , considered differential, d/w patient ED course: 76-year-old female with progressive weakness and a history of CHF is not able to care for herself as she is weak enough that she is unable to get herself out of bed. She was evaluated in the ED yesterday for a fall with weakness and back pain. X-rays were negative for fracture. She was weak enough that she could not sit up in the bed by herself and requested a acevedo. She did not appear to have an admittable diagnosis yesterday. Today she has significant dehydration on interrogation of the inferior vena cava. Her BUN was elevated to 58 4 days ago and she normally runs in the low 20's with cr of 0.8. I suspect she has volume depletion with decreased intake and continued use of lasix. She is hydrated with intravenous saline. Her urine turns from bloody to clear but she is not able to sit up in bed by herself. I am concerned not only about the dehydrated state with this lady with congestive heart failure but the potential for weakness related to her statin use. I have again asked the hospitalist to care for this patient in the hospital and the hospitalist has refused admission stating this is the baseline for this patient who lives alone and is refusing respite care offered. The patient will taken care of here overnight as sending her back to her home is negligent. We will continue IV hydration at a slow rate. Today we were unable to reach any specific caregiver for this patient and continued care at home is not possible. We will hold her statin as well. The patient remains in the ED overnight and is attended to by Dr. Hoffman. She remains weak but feels improved. It is easier for her to talk this morning but she remains weak and is unable to sit up unassisted but has some effort today. She is now euvolemic with IVC at 1.46 collapsing to 1.02. She is hypoxic on room air as well and a second CXR is being obtained. She was started on diamox as an outpatient for her gluacoma and this is held since last night. The chest x -ray from today demonstrates a progression of airspace process bilaterally worse on the left than the right and more consistent with infection. This is consistent with our findings here that the patient does have a collapsing IVC and failure is not likely the etiology of the appearance of the x-ray. Treatment for pneumonia is begun and the patient is admitted to the hospital. Departure - Departure Disposition: 66 [facility] DC/Xfer Clinical Impression: Fall, Hypoglycemia, Weakness, Dehydration Pneumonia Qualifiers: Pneumonia type: due to unspecified organism Laterality: bilateral Lung location : lower lobe of lung Qualified Code(s): J18.9 - Pneumonia, unspecified organism Condition: Poor Instructions: Falls Risks Prevent, Falls Prevent Prepare What Do, ED Diabetes Hypoglycemia Insulin React, ED Fall Dizziness Weakn Balance Follow-Up: Nella Muñiz PA-C [Primary Care Provider] - (Tuesday for a recheck ) Comments: Your blood sugar is getting too low at night and I think that is part of the reason you are so weak. Your blood sugar has been running about 130 all days with meals without any diabetes medications at all You can continue your metformin but please stop your insulin all together for right now. Keep a log of your blood sugars and follow up with your PMD next week to discuss medications. If your blood sugar is less than 100 or over 350 call your PMD or come back to the ER I am concerned about your safety because you have a hard time getting around even with a walker and you live alone. So the social director met with you to discuss placement in assisted living or a jail but you have declined at this time. I did provide you with a brochure to order a LifeLine which I strongly encourage you to get I also spoke with care management and since you are housebound, there are services that you can get to help you in the house - physical therapy, social work, wound care etc. This will serve as a referral to [facility] for nursing services, wound care, physical therapy and a social work visit
[2016-12-04] MEDS ORDERED: ENOXAPARIN 40 MG/0.4 ML SYRINGE SUBQ STA (08:18)
[2016-12-04] MEDS ORDERED: FUROSEMIDE 20 MG TABLET ONE (09:17)
[2016-12-04] MEDS ORDERED: ATENOLOL 25 MG TABLET ONE (09:17)
[2016-12-04] MEDS ORDERED: LISINOPRIL 5 MG TABLET ONE (09:17)
[2016-12-04] MEDS ORDERED: amLODIPine 5 MG TABLET ONE (09:17)
[2016-12-04] MEDS: ATENOLOL 25 MG TABLET PO SCH (09:17)
[2016-12-04] MEDS ORDERED: ENOXAPARIN 40 MG/0.4 ML SYRINGE SUBQ ONE (09:18)
[2016-12-04] MEDS ORDERED: metFORMIN 500 MG TABLET ONE (09:18)
[2016-12-04] MEDS: LISINOPRIL 5 MG TABLET PO SCH ×3 (09:18→22:58)
[2016-12-04] MEDS ORDERED: ASPIRIN CHEW 81 MG TABLET ONE (09:18)
[2016-12-04] MEDS: metFORMIN 500 MG TABLET PO SCH ×3 (09:19→22:59)
[2016-12-04] MEDS: amLODIPine 5 MG TABLET PO SCH (09:20)
[2016-12-04] MEDS: ASPIRIN CHEW 81 MG TABLET PO SCH (09:21)
[2016-12-04] MEDS: FUROSEMIDE 20 MG TABLET PO SCH (09:21)
--- NOTE | 2016-12-04 16:45 | PROVIDER PROGRESS NOTE ---
Hospitalist Cross-cover Note - Cross-Cover Note Cross-Cover Note: Vero Payan, a 76 yr white female, was assessed for a possible admission for "weakness". The patient stated to the ER doctor that she decreased her oral intake of fluids. The ER feels that she is unable to care for herself. On review of her record, she has had an elevated BUN with consistent normal creatinine for the past week. Her past medical history is significant for Type 2 DM, HTN, hyperlipidemia, osteoarthritis and glaucoma. Her past surgical history demonstrates cholecystectomy and carpal tunnel surgery. She has no known drug allergies. She has never smoked. Her chief complaint is weakness. vital signs: temp=37 C, P=77, OW=017/69, RR=18, and O2 sat=94% on room air General-A well nourished lady wearing black gloves and has a catheter in place. Head-atraumatic, normocephalic Eyes- blurred vision secondary to cataracts Neck -supple, no bruits Heart- RRR Lungs- CTA with bronchial sounds Abdomen-+BS, soft, nontender, no rebound, no guarding Extremities- warm, no cyanosis Neurological-oriented to person and place and follows commands Iadd-hloizo-niuv Labs: UA yesterday clear urine pH=6.0 blood-negative nitrate- negative leukoesterase-negative UA today after ER inserted urine catheter (traumatic insertion) brown hazy urine protein- 100 urine occult blood-100 urine rbc-TNTC The urine that is appearing is much clearer now. Labs: wbc-8.3 Hb-12 Hct-36.8 Platelets-165,000. Sodium-143 Potassium- 3.8 Chloride-117 BUN- 55 Creatinine- 0.8 Glucose- 126 Troponin- < 0.04 Calcium-9.6 After receiving 1 liter of fluid wide open in the ER, a BNP was collected by the ER that showed a BNP of 381. Assessment/Plan: Weakness that is a common complaint for this patient. The patient met with social worker delinquency prevention yesterday for care management outside the hospital. The patient refused these services. Weakness that needs to be followed by PCP (Nella Muñiz PA-C) coty, hopefully this can be done this coming Tuesday. The hospital personnel working with this patient for the past 2 days are Erin Robertson, Care Management and Lyndsey Cutler, Seaming Inspector. She refused assisted living or a assisted. She was provided with a LifeLine which she was encouraged to use. Through [facility], she could receive nursing services, wound care, physical therapy, and a social work visit. It was hoped that the patient would accept the services explained to her by social worker delinquency prevention and case management. The ER doctor suggested that she stop her insulin and continue her metformin. She is to keep a log of her FSBS to give to her PCP for medication adjustment.
[2016-12-04] MEDS: acetaZOLAMIDE 250 MG TABLET PO SCH ×2 (18:56→21:54)
[2016-12-04] MEDS: BRINZOLAMIDE 1% OPHTH DROPS RIGHTEYE SCH ×3 (18:56→21:52)
[2016-12-04] MEDS: TRAVOPROST 0.004% OPHTH DROPS 2.5 ML EACHEYE SCH ×3 (18:57→21:51)
[2016-12-04] MEDS: TIMOLOL 0.5% OPHTH DROPS EACHEYE SCH ×2 (18:57→21:46)
[2016-12-04] MEDS: POTASSIUM CHLORIDE 20 MEQ TABLET PO SCH (18:58)
--- NOTE | 2016-12-04 21:18 | CT Preliminary Report ---
Exam: CT HEAD W/O IMPRESSION: Negative nonenhanced head CT. [facility] SITE ID: [id number]
--- NOTE | 2016-12-04 21:21 | CT Report ---
EXAM: CT HEAD EXAM DATE: 12/04/2016 09:04 PM. CLINICAL HISTORY: Confusion and weakness. COMPARISON: None. TECHNIQUE: Multiaxial CT images were obtained from the foramen magnum to the vertex. IV contrast: Non e. Reformats: Coronal. In accordance with CT protocol optimization, one or more of the following dose reduction techniques w ere utilized for this exam: automated exposure control, adjustment of mA and/or KV based on patient s ize, or use of iterative reconstructive technique. FINDINGS: Parenchyma: No intraparenchymal hemorrhage. No evidence of mass, midline shift, or CT findings of inf arction. Ware-white differentiation is distinct. Extraaxial Spaces: Normal for age. No subdural or epidural collections identified. Ventricles: Normal in size and position. Sinuses and orbits: Imaged paranasal sinuses, orbits, and mastoids show no significant abnormality. Bones: No evidence of fracture or calvarial defect. Other: None. IMPRESSION: Negative nonenhanced head CT. [facility] Referring Provider Line: [phone] SITE ID: [id number]
[2016-12-04 21:24] LABS: BASOPHILS % (AUTO) 0.2 %; EOSINOPHILS % (AUTO) 0.3 %; HCT - HEMATOCRIT 39.1 % (37.0-47.0); HGB - HEMOGLOBIN 12.8 g/dL (12.0-16.0); LYMPHOCYTES % (AUTO) 12.2 %; MEAN CORPUSCULAR HEMOGLOBIN 27.6 pg (27.0-31.0); MEAN CORPUSCULAR HGB CONC 32.6 g/dL (32.0-36.0); MEAN CORPUSCULAR VOLUME 84.7 fL (81.0-99.0); MEAN PLATELET VOLUME 9.5 fL (7.9-10.8); MONOCYTES # (AUTO) 0.2 10^3/uL (0.0-1.0); MONOCYTES % (AUTO) 2.9 %; NEUTROPHILS # (AUTO) 6.8 10^3/uL (1.5-6.6); NEUTROPHILS % (AUTO) 84.4 %; RED BLOOD COUNT 4.62 10^6/uL (4.20-5.40); RED CELL DISTRIBUTION WIDTH 19.2 % (12.0-15.0)
[2016-12-04] MEDS ORDERED: acetaZOLAMIDE 250 MG TABLET PO ONE (21:40)
[2016-12-04 21:41] LABS: ALBUMIN/GLOBULIN RATIO 0.9 (1.0-2.2); BILIRUBIN,TOTAL 0.9 mg/dL (0.2-1.0); CALCIUM 9.3 mg/dL (8.5-10.3); MAGNESIUM 1.6 mg/dL (1.7-2.8)
[2016-12-04] MEDS ORDERED: MAGNESIUM SULFATE 2 GRAM 2 GM/50 ML BAG IV ONE ×2 (21:51→23:06)
[2016-12-04] MEDS ORDERED: ELECTROLYTE-A SOLUTION 1,000 ML IV ONE ×2 (21:51→23:06)
[2016-12-04 21:55] LABS: POTASSIUM 3.7 mmol/L (3.5-5.0)
--- NOTE | 2016-12-04 21:58 | ED Physician Documentation ---
ED Addendum - Addendum Addendum: 12/04/16 21:55 The patient talk to the nurse and said she would like to go home. A friend of hers was coming in to see her own is willing to take her home. However my verbal report and handoff was that the patient was generally weak and having difficulty with ambulation and had had a couple of falls. She reportedly had improved some with some IV fluids earlier in the day. I had the ER techs attempted ambulating the patient and they report that she required considerable assistance to get from laying to standing and then heat with a walker was only able to take a step and then her legs gave out and she almost fell to the floor. They were able to help her so she did not fall and hurt. However she does not seem to be able to ambulate well enough to take care of herself at home. She lives alone and does have a walker and wheelchair at home but does need to be able to transfer and get to the bathroom and back with a walker usually. She had not had labs today and so I ordered repeat blood count and electrolytes and chemistry panel. She did not have any focal deficits on exam and her lungs sounded clear. She however may be had some level of confusion and her friend reports she had difficulty with some simple calculations in such over the last several days before coming to the hospital. Therefore did a CT of the head to evaluate for acute process and there was no abnormalities found. At this point she will remain in the ER as administrative case packer and sealer had felt there were no admission criteria by my report from the prior ER doc. We will give her some IV fluids again to make sure she has hydrated and encourage oral intake while here. She has been kept on her usual home medicines and we are encouraging fluids and food at regular intervals. Social work will see her in the morning presumably for attempting placement for rehab or penitentiary.
[2016-12-05] MEDS: acetaZOLAMIDE 250 MG TABLET PO SCH ×4 (08:45→19:10)
--- NOTE | 2016-12-05 09:13 | XRAY Preliminary Report ---
Exam: XR CHEST 2 VIEW PA/LAT IMPRESSION: 1. Progressive fairly extensive bilateral airspace process, left greater than right, question inflamm atory/infectious, edema somewhat less likely. 2. Stable mild cardiomegaly. [facility] SITE ID: [id number]
--- NOTE | 2016-12-05 09:16 | XRAY Report ---
EXAM: CHEST RADIOGRAPHY EXAM DATE: 12/05/2016 08:54 AM. CLINICAL HISTORY: Hypoxia. COMPARISON: AP chest 12/03/2016. TECHNIQUE: 2 views. FINDINGS: Lungs/Pleura: Progressive bilateral confluent opacities mostly in mid and lower lung zones, left grea ter than right. Indistinct vasculature. No pneumothorax or pleural effusion. Mediastinum: Stable mild cardiomegaly and superior mediastinal contour. Other: No focal bone abnormality identified. IMPRESSION: 1. Progressive fairly extensive bilateral airspace process, left greater than right, question inflamm atory/infectious, edema somewhat less likely. 2. Stable mild cardiomegaly. [facility] Referring Provider Line: [phone] SITE ID: [id number]
[2016-12-05] MEDS ORDERED: AZITHROMYCIN INJ 500 MG in SODIUM CHLORIDE 0.9% 250 ML IV STA (09:33)
[2016-12-05] MEDS ORDERED: cefTRIAXone 1 GM in SODIUM CHLORIDE 0.9% MINIBAG 100 ML IV STA (09:33)
[2016-12-05] MEDS ORDERED: FUROSEMIDE 20 MG TABLET ONE (09:54)
[2016-12-05] MEDS ORDERED: LISINOPRIL 5 MG TABLET ONE (09:54)
[2016-12-05] MEDS ORDERED: amLODIPine 5 MG TABLET ONE (09:54)
[2016-12-05] MEDS ORDERED: ATENOLOL 25 MG TABLET ONE (09:54)
[2016-12-05] MEDS ORDERED: ASPIRIN CHEW 81 MG TABLET ONE (09:55)
[2016-12-05] MEDS ORDERED: metFORMIN 500 MG TABLET ONE (09:55)
[2016-12-05] MEDS ORDERED: POTASSIUM CHLORIDE 20 MEQ TABLET PO ONE (09:56)
[2016-12-05] MEDS: TIMOLOL 0.5% OPHTH DROPS EACHEYE SCH (09:58)
[2016-12-05] MEDS: amLODIPine 5 MG TABLET PO SCH (10:02)
[2016-12-05] MEDS: POTASSIUM CHLORIDE 20 MEQ TABLET PO SCH (10:02)
[2016-12-05] MEDS: metFORMIN 500 MG TABLET PO SCH (10:03)
[2016-12-05] MEDS: ATENOLOL 25 MG TABLET PO SCH (10:03)
[2016-12-05] MEDS: LISINOPRIL 5 MG TABLET PO SCH (10:03)
[2016-12-05] MEDS: ASPIRIN CHEW 81 MG TABLET PO SCH (10:03)
[2016-12-05] MEDS: FUROSEMIDE 20 MG TABLET PO SCH (10:03)
[2016-12-05] MEDS ORDERED: cefTRIAXone 1 GM VIAL ONE (10:06)
[2016-12-05] MEDS ORDERED: SODIUM CHLORIDE FLUSH 0.9% 10 ML SYRINGE IVP ONE ×3 (10:08→10:54)
[2016-12-05 12:02] LABS: ABG ANALYSIS TIME 1155; ABG PCO2 31 mmHg (34-45); ABG PH 7.35 (7.35-7.45); ABG PO2 65 mmHg (80-100)
[2016-12-05 12:03] LABS: ABG BASE EXCESS -7.4 mmol/L (-2.0-3.0); ABG O2 DEVICE NASAL CANNULA; ABG OXYGEN SATURATION 92 % (94-98); ABG SATURATION PULSE OXIMETRY% 94 %; ABG SITE OF DRAW RIGHT RADIAL; ALLEN TEST POSITIVE
[2016-12-05] MEDS: BRINZOLAMIDE 1% OPHTH DROPS RIGHTEYE SCH ×4 (14:24→21:00)
[2016-12-05] MEDS ORDERED: BRINZOLAMIDE RIGHTEYE SCH (16:15)
[2016-12-05] MEDS ORDERED: BRIMONIDINE TART RIGHTEYE SCH (16:15)
[2016-12-05] MEDS ORDERED: SODIUM CHLORIDE FLUSH 0.9% 10 ML SYRINGE IVP PRN (16:18)
[2016-12-05] MEDS ORDERED: IPRATROPIUM/ALBUTEROL 3 ML NEB INH PRN (16:29)
[2016-12-05] MEDS ORDERED: methylPREDNISolone SUCCINATE 1,000 MG in SODIUM CHLORIDE 0.9% 250 ML IV STA (16:30)
[2016-12-05] MEDS ORDERED: ONDANSETRON 4 MG/2 ML VIAL IVP PRN (16:37)
[2016-12-05] MEDS ORDERED: NAPROXEN 250 MG TABLET PO PRN (16:38)
[2016-12-05] MEDS ORDERED: diphenhydrAMINE 25 MG CAPSULE PO PRN (16:39)
[2016-12-05] MEDS ORDERED: TIMOLOL 0.5% OPHTH DROPS RIGHTEYE SCH (17:00)
[2016-12-05] MEDS ORDERED: SODIUM CHLORIDE 0.9% 1,000 ML IV SCH (17:00)
[2016-12-05] MEDS ORDERED: TRAVOPROST 0.004% OPHTH DROPS 2.5 ML RIGHTEYE SCH (17:00)
--- NOTE | 2016-12-05 17:38 | HISTORY & PHYSICAL EXAMINATION ---
DATE OF ADMISSION: 12/05/2016 CODE STATUS: DO NOT RESUSCITATE. PRIMARY CARE DOCTOR: Nella Muñiz PA-C EXAM LIMITATIONS: None. RECORDS REVIEWED: Yes. SOURCE OF INFORMATION: Patient. CHIEF COMPLAINT: Weakness, shortness of breath, and a productive cough. ADVANCED CARE DIRECTIVE: Unknown at this time. HISTORY: The patient, a 76-year-old white female has had weakness in her lower limbs with the inability to sit up since 12/03/2016. Today, she developed shortness of breath and a productive cough. The ER doctor re-evaluated her and stated that he believed she had pneumonia. DRUG ALLERGIES: NONE. MEDICATIONS 1. Norvasc 5 mg 1 tab p.o. every day. 2. Aspirin 81 mg a tab p.o. every day. 3. Atenolol 50 mg tab p.o. every day. 4. Brinzolamide/brimonidine 1 drop right eye every 4 hours. 5. Lasix 20 mg a tab p.o. every day. 6. Lantus 36 units subcutaneously at bedtime. 7. Lisinopril 20 mg 1 tab p.o. twice a day. 8. Metformin 1275 mg p.o. twice a day. 9. Potassium chloride 10 mEq 1 tab p.o. at 8 a.m. 10. Simvastatin 20 mg tab p.o. every day. 11. Timolol 0.5% 1 drop right eye every 4 hours. 12. Travoprost 1 drop every 4 hours in the right eye. PAST MEDICAL HISTORY: Hypertension, type 2 diabetes mellitus, hyperlipidemia, osteoarthritis, and glaucoma. PAST SURGICAL HISTORY: Cholecystectomy and carpal tunnel syndrome. FAMILY HISTORY: Father, diabetes mellitus, mother endometrial cancer and CVA. SOCIAL HISTORY: She is a . She has no children. She smoked 1 pack per day for 5 years, quit in 1983. No alcohol abuse, no recreational drug abuse. She lives at home with home health on weekdays. REVIEW OF SYSTEMS RESPIRATORY: Productive cough and shortness of breath. HEART: No palpitations. No chest pain. ABDOMEN: Constipation. URINARY: No frequency, no burning urine. HEAD: No headaches. EYES: Blurred vision. EARS: No tinnitus, no ear pain. NOSE: No runny nose. THROAT: Dry mouth. MUSCULOSKELETAL: Proximal muscle weakness. JOINTS: Difficulty moving lower extremities. NEUROLOGICAL: Difficulty moving lower extremities. Weakness and fatigue is yes and fevers no. PHYSICAL EXAMINATION VITAL SIGNS: Temperature of 36.3, a pulse of 67, a respiratory rate of 18, blood pressure is 143/67, O2 saturation of 97% on 3 liters nasal cannula. GENERAL: She is a well-nourished, cooperative, and alert female. HEENT: Head is atraumatic, normocephalic. Eyes are PERRLA, EOMI. NECK: Supple. No JVD. No bruits or thyroid enlargement. HEART: RRR. LUNGS: Clear to auscultation. ABDOMEN: Positive for bowel sounds, soft, nontender. No rebound or guarding. EXTREMITIES: Warm. No edema, +2 pedal pulses. She has 5/5 muscle strength in upper extremities, 3/5 muscle strength in lower extremities. NEUROLOGIC: She is oriented to person and place. Follows commands in all 4 extremities. LABORATORY: Sodium is 147, potassium 3.7, chloride is 118, bicarbonate is 19, BUN is 48, creatinine is 1, glucose is 91. White blood cells are 8, hemoglobin is 12.8, hematocrit 39.1, platelets 179,000. Glomerular filtration rate is 54. ABG: pH is 7.35, pCO2 of 31, pO2 of 65, bicarbonate 18, O2 saturation is 92%. Chest x-ray, progressive, fairly extensive bilateral airspace process, left greater than right. Inflammatory infectious process and stable mild cardiomegaly. ASSESSMENT AND PLAN 1. Community-acquired pneumonia that will be treated with IV Rocephin and azithromycin, DuoNeb, and IV Solu-Medrol. 2. Type 2 diabetes mellitus will be treated with subcutaneously Lantus and subcutaneously sliding scale NovoLog with meals. 3. Hypertension will be treated with Norvasc and lisinopril. 4. Hyperlipidemia will be treated with simvastatin. 5. Osteoarthritis will be treated with naproxen. 6. Glaucoma will be treated with Timolol and Travoprost. 7. Insomnia will be treated with Benadryl. 8. Lower limb weakness. She will get a physical therapy evaluation. 9. She will be on IV Protonix to prevent stress ulcer and for deep venous thrombosis prophylaxis, she will be on sequential compression devices and subcutaneous heparin. 10.Pulmonary Edema from fluid overload- on lasix LENGTH OF STAY: Will be 3 days. JOB #: [id number] EXT JOB #:[id number] MTDFelipe
[2016-12-05 18:23] LABS: HEMOGLOBIN A1C 0.57 g/dL
[2016-12-05] MEDS ORDERED: FUROSEMIDE 20 MG/2 ML VIAL IVP SCH (19:03)
[2016-12-05] MEDS: HEPARIN 5,000 UNIT/ML VIAL SUBQ SCH ×2 (19:08→20:22)
[2016-12-05] MEDS: NYSTATIN POWDER 15 GM TOP SCH ×2 (19:45→20:59)
[2016-12-05] MEDS: LISINOPRIL 20 MG TABLET PO SCH (20:59)
[2016-12-05] MEDS: ATORVASTATIN 10 MG TABLET PO SCH (20:59)
[2016-12-05] MEDS: TIMOLOL 0.5% OPHTH DROPS RIGHTEYE SCH (21:02)
[2016-12-05] MEDS: TRAVOPROST 0.004% OPHTH DROPS 2.5 ML RIGHTEYE SCH (21:04)
[2016-12-05] MEDS: SODIUM CHLORIDE FLUSH 0.9% 10 ML SYRINGE IVP SCH (21:07)
[2016-12-05] MEDS: MAGNESIUM OXIDE 400 MG TABLET PO SCH (22:00)
[2016-12-06] MEDS: acetaZOLAMIDE 250 MG TABLET PO SCH ×4 (01:06→20:44)
[2016-12-06 05:23] LABS: BASOPHILS % (AUTO) 0.3 %; EOSINOPHILS # (AUTO) 0.1 10^3/uL (0.0-0.7); EOSINOPHILS % (AUTO) 1.6 %; HCT - HEMATOCRIT 35.6 % (37.0-47.0); HGB - HEMOGLOBIN 11.7 g/dL (12.0-16.0); LYMPHOCYTES # (AUTO) 1.3 10^3/uL (1.5-3.5); LYMPHOCYTES % (AUTO) 19.5 %; MEAN CORPUSCULAR HGB CONC 32.7 g/dL (32.0-36.0); MEAN CORPUSCULAR VOLUME 85.6 fL (81.0-99.0); MEAN PLATELET VOLUME 9.5 fL (7.9-10.8); MONOCYTES # (AUTO) 0.4 10^3/uL (0.0-1.0); MONOCYTES % (AUTO) 5.7 %; NEUTROPHILS % (AUTO) 72.9 %; NUCLEATED RED BLOOD CELLS AUTO 0.6 /100WBC; RED BLOOD COUNT 4.16 10^6/uL (4.20-5.40); RED CELL DISTRIBUTION WIDTH 19.6 % (12.0-15.0); UNCORRECTED WHITE BLOOD COUNT 6.9 x10^3/uL; WHITE BLOOD COUNT 6.9 x10^3/uL (4.8-10.8)
[2016-12-06 05:31] LABS: ALBUMIN/GLOBULIN RATIO 0.8 (1.0-2.2); CALCIUM 9.3 mg/dL (8.5-10.3); CREATININE 0.9 mg/dL (0.4-1.0); POTASSIUM 3.5 mmol/L (3.5-5.0); TOTAL PROTEIN 6.5 g/dL (6.7-8.2)
[2016-12-06] MEDS: BRINZOLAMIDE 1% OPHTH DROPS RIGHTEYE SCH ×2 (05:56→20:45)
[2016-12-06] MEDS: SODIUM CHLORIDE FLUSH 0.9% 10 ML SYRINGE IVP SCH ×3 (05:57→21:09)
[2016-12-06] MEDS: MAGNESIUM OXIDE 400 MG TABLET PO SCH (08:25)
[2016-12-06] MEDS: FUROSEMIDE 20 MG TABLET PO SCH (08:25)
[2016-12-06] MEDS: AZITHROMYCIN 250 MG TABLET PO SCH (08:25)
[2016-12-06] MEDS: ASPIRIN EC 81 MG TABLET PO SCH (08:25)
[2016-12-06] MEDS: amLODIPine 5 MG TABLET PO SCH (08:25)
[2016-12-06] MEDS: ATENOLOL 25 MG TABLET PO SCH (08:25)
[2016-12-06] MEDS: POTASSIUM CHLORIDE 10 MEQ CAPSULE PO SCH (08:25)
[2016-12-06] MEDS: PANTOPRAZOLE 40 MG VIAL IV SCH (08:26)
[2016-12-06] MEDS: LISINOPRIL 20 MG TABLET PO SCH ×2 (08:33→20:43)
[2016-12-06] MEDS: POLYETHYLENE GLYCOL 3350 17 GM PACKET PO SCH (08:34)
[2016-12-06] MEDS: HEPARIN 5,000 UNIT/ML VIAL SUBQ SCH ×2 (08:34→21:09)
[2016-12-06] MEDS: NYSTATIN POWDER 15 GM TOP SCH ×2 (08:37→20:44)
[2016-12-06] MEDS: INSULIN GLARGINE 300 UNIT/3 ML PEN SUBQ SCH (08:37)
[2016-12-06] MEDS: TIMOLOL 0.5% OPHTH DROPS RIGHTEYE SCH ×2 (08:38→20:45)
[2016-12-06] MEDS: cefTRIAXone 1 GM in SODIUM CHLORIDE 0.9% MINIBAG 100 ML IV SCH (08:38)
[2016-12-06] MEDS ORDERED: methylPREDNISolone SUCCINATE 40 MG/ML VIAL IVP SCH (09:00)
[2016-12-06] MEDS ORDERED: methylPREDNISolone SUCCINATE 125 MG/2 ML VIAL IVP SCH (09:00)
[2016-12-06] MEDS ORDERED: NON FORMULARY MED (Simvastatin [Simvastatin] 20 MG) PO SCH (09:00)
--- NOTE | 2016-12-06 17:49 | PROVIDER PROGRESS NOTE ---
Assessment/Plan - Problem List (1) Community acquired pneumonia Assessment/Plan: treated with IV Rocephin and Azithromycin (2) Uncontrolled type 2 diabetes mellitus Assessment/Plan: is being treated with SQ Lantus and Novalog Sliding Scale with meals (3) Hypertension Assessment/Plan: will be treated with norvasc and lisinopril (4) Hyperlipidemia Assessment/Plan: will be treated with simvastatin (5) Osteoarthritis Assessment/Plan: will be treated with naproxen (6) Glaucoma Assessment/Plan: will be treated with timolol and trovoprost (7) Insomnia Assessment/Plan: will be treated with benadryl (8) Weakness of both lower limbs Assessment/Plan: the patient will get a PT evaluation and treatment (9) Pulmonary edema Qualifiers: Chronicity: acute Qualified Code(s): J81.0 - Acute pulmonary edema Assessment/Plan: will be treated with lasix - Current Meds Current Meds: Current Medications Generic Name Dose Route Start Last Admin Trade Name Freq PRN Reason Stop Dose Admin Acetazolamide 250 mg 12/03/16 20:00 12/06/16 13:20 Diamox PO 250 mg Q6H NANCY Administration Amlodipine Besylate 5 mg 12/06/16 09:00 12/06/16 08:25 Norvasc PO 5 mg DAILY NANCY Administration Aspirin 81 mg 12/06/16 09:00 12/06/16 08:25 Ecotrin PO 81 mg DAILY NANCY Administration Atenolol 50 mg 12/06/16 09:00 12/06/16 08:25 Tenormin PO 50 mg DAILY NANCY Administration Atorvastatin Calcium 10 mg 12/05/16 21:00 12/05/16 20:59 Lipitor PO 10 mg QPM NANCY Administration Azithromycin 500 mg 12/06/16 09:00 12/06/16 08:25 Zithromax PO 500 mg DAILY NANCY Administration Brinzolamide 1 drops 12/03/16 20:00 12/06/16 05:56 Azopt 1% Ophth Drops RIGHTEYE 1 drops TID NANCY Administration Furosemide 20 mg 12/06/16 09:00 12/06/16 08:25 Lasix PO 20 mg DAILY NANCY Administration Heparin Sodium (Porcine) 5,000 unit 12/05/16 17:00 12/06/16 08:34 SUBQ 5,000 unit BID NANCY Administration Ceftriaxone Sodium 1 gm/ 100 mls @ 200 mls/hr 12/06/16 09:00 12/06/16 09:10 Sodium Chloride IV Infused DAILY NANCY Infusion Insulin Glargine 36 unit 12/06/16 09:00 12/06/16 08:37 Lantus Solostar SUBQ Not Given DAILY NANCY Lisinopril 20 mg 12/05/16 21:00 12/06/16 08:33 Zestril PO 20 mg BID NANCY Administration Magnesium Oxide 400 mg 12/05/16 22:00 12/06/16 08:25 Mag Ox PO 400 mg DAILYWM NANCY Administration Nystatin 0 applic 12/05/16 20:00 12/06/16 08:37 Nystop TOP 1 applic BID NANCY Administration Pantoprazole Sodium 40 mg 12/06/16 09:00 12/06/16 08:26 Protonix IV 40 mg DAILY NANCY Administration Polyethylene Glycol 17 gm 12/06/16 09:00 12/06/16 08:34 Miralax PO 17 gm DAILY NANCY Administration Potassium Chloride 10 meq 12/06/16 08:00 12/06/16 08:25 Micro-K PO 10 meq 0800 NANCY Administration Sodium Chloride 10 ml 12/05/16 22:00 12/06/16 13:20 Normal Saline Flush 0.9% IVP 10 ml Q8HR NANCY Administration Timolol Maleate 1 drops 12/05/16 21:00 12/06/16 08:38 Timoptic 0.5% Ophth Drops RIGHTEYE 1 drops BID NANCY Administration Travoprost 1 drops 12/05/16 21:00 12/05/16 21:04 Travatan Z RIGHTEYE 1 drops QPM NANCY Administration - Lab Result Lab results reviewed: Yes Fish Bone Diagrams: 12/06/16 05:00 12/06/16 05:00 - Additional Planning Condition/Complexity: Improved (The patient is more alert today. The patient is breathing easier. The patient is participating in physical therapy. She is working with social work faculty member for her future needs.) My Orders: My Active Orders 12/05/16 16:47 Initiate Hypoglycemia Protocol [RC] .protocol 12/05/16 17:00 Heparin 5,000 unit SUBQ BID 12/05/16 20:00 Nystatin [Nystop] See Dose Instructions TOP BID 12/05/16 21:00 Atorvastatin [Lipitor] 10 mg PO QPM Timolol 0.5% Ophth Drops [Timoptic 0.5% Ophth Drops] 1 drops RIGHTEYE BID Travoprost 0.004% Ophth Drops [Travatan Z] 1 drops RIGHTEYE QPM 12/06/16 09:00 Azithromycin [Zithromax] 500 mg PO DAILY Pantoprazole [Protonix] 40 mg IV DAILY cefTRIAXone [Rocephin] 1 gm Sodium Chloride 0.9% Minibag [Normal Saline 0.9% Minibag] 100 ml IV DAILY 12/06/16 13:45 Daily Dressing Change [RC] DAILY 12/07/16 05:00 CBC - COMP BLD CT W/AUTO DIFF [HEME] Routine MAGNESIUM [CHEM] Routine 12/07/16 09:00 methylPREDNISolone SUCCINATE [SOLU-Medrol (40MG VIAL)] 20 mg IVP DAILY Subjective - Subjective Patient Reports: Feeling Better, Resting Comfortably, No Complaints (The patient is feeling better. She is participating in physical therapy. She is eating. She is breathing easier today.) Objective Vital Signs: Vital Signs - 24 hr 12/05/16 12/05/16 12/05/16 18:15 18:35 21:50 Temperature 35.5 C L Heart Rate 128 H 65 Heart Rate [ 54 L Brachial] Heart Rate [ Sitting] Heart Rate [ Supine] Respiratory 20 20 18 Rate Blood Pressure 148/67 H [Right Brachial artery] Blood Pressure [Sitting] Blood Pressure [Supine] O2 Saturation 98 12/06/16 12/06/16 12/06/16 00:00 08:15 08:22 Temperature 36.0 C L 36.1 C L Heart Rate 55 L Heart Rate [ 62 59 L Brachial] Heart Rate [ Sitting] Heart Rate [ Supine] Respiratory 18 14 14 Rate Blood Pressure 143/58 H 139/66 H [Right Brachial artery] Blood Pressure [Sitting] Blood Pressure [Supine] O2 Saturation 100 100 12/06/16 12/06/16 12/06/16 08:26 11:15 11:38 Temperature 35.8 C L 36.3 C L Heart Rate Heart Rate [ 58 L 56 L Brachial] Heart Rate [ 60 Sitting] Heart Rate [ 55 L Supine] Respiratory 18 20 Rate Blood Pressure 133/58 H [Right Brachial artery] Blood Pressure 149/64 H [Sitting] Blood Pressure 124/58 L [Supine] O2 Saturation 98 98 12/06/16 15:37 Temperature 36.4 C L Heart Rate Heart Rate [ 65 Brachial] Heart Rate [ Sitting] Heart Rate [ Supine] Respiratory 16 Rate Blood Pressure 128/52 L [Right Brachial artery] Blood Pressure [Sitting] Blood Pressure [Supine] O2 Saturation 97 Oxygen O2 Source Nasal cannula I&O (Last 24 Hrs): Intake and Output Totals x24h 12/04/16 12/05/16 12/06/16 23:59 23:59 23:59 Intake Total 660 540 Output Total 1355 1100 Balance -695 -560 General: Alert, Oriented x3, No acute distress HEENT: Atraumatic, PERRLA Neck: Supple Neuro: Alert, CN 2-12 Grossly Intact, Oriented Times 3 Cardiovascular: Regular rate, Normal S1, Normal S2 Respiratory: Chest non-tender, No respiratory distress, Breath sounds nml Abdomen: Normal bowel sounds, Soft, No tenderness Extremities: Other (slight edema in both legs) Comments/Notes: some skin breakdown. - Results Results: Laboratory Results WBC 6.9 x10^3/uL (4.8-10.8) 12/06/16 05:00 RBC 4.16 10^6/uL (4.20-5.40) L 12/06/16 05:00 Hgb 11.7 g/dL (12.0-16.0) L 12/06/16 05:00 Hct 35.6 % (37.0-47.0) L 12/06/16 05:00 MCV 85.6 fL (81.0-99.0) 12/06/16 05:00 MCH 28.0 pg (27.0-31.0) 12/06/16 05:00 MCHC 32.7 g/dL (32.0-36.0) 12/06/16 05:00 RDW 19.6 % (12.0-15.0) H 12/06/16 05:00 Plt Count 173 10^3/uL (130-450) 12/06/16 05:00 MPV 9.5 fL (7.9-10.8) 12/06/16 05:00 Neut # 5.0 10^3/uL (1.5-6.6) 12/06/16 05:00 Lymph # 1.3 10^3/uL (1.5-3.5) L 12/06/16 05:00 [place] # 0.4 10^3/uL (0.0-1.0) 12/06/16 05:00 Eos # 0.1 10^3/uL (0.0-0.7) 12/06/16 05:00 Baso # 0.0 10^3/uL (0.0-0.1) 12/06/16 05:00 Absolute Nucleated RBC 0.04 x10^3/uL 12/06/16 05:00 Nucleated RBC % 0.6 /100WBC 12/06/16 05:00 Bld Gas Analysis Time 1155 12/05/16 11:55 Sample Site RIGHT RADIAL 12/05/16 11:55 ABG pH 7.35 (7.35-7.45) 12/05/16 11:55 ABG pCO2 31 mmHg (34-45) L 12/05/16 11:55 ABG pO2 65 mmHg (80-100) L 12/05/16 11:55 ABG HCO3 17.0 mmol/L (22.0-26.0) L 12/05/16 11:55 ABG Total CO2 18.0 MMOL/L (21.0-29.0) L 12/05/16 11:55 ABG O2 Saturation 92 % (94-98) L 12/05/16 11:55 ABG Oximetry Spot Check 94 % 12/05/16 11:55 ABG Base Excess -7.4 mmol/L (-2.0-3.0) L 12/05/16 11:55 Alexei Test POSITIVE 12/05/16 11:55 O2 Delivery Device NASAL CANNULA 12/05/16 11:55 O2 Liters/Min 3.00 LPM 12/05/16 11:55 Sodium 145 mmol/L (135-145) 12/06/16 05:00 Potassium 3.5 mmol/L (3.5-5.0) 12/06/16 05:00 Chloride 112 mmol/L (101-111) H 12/06/16 05:00 Carbon Dioxide 20 mmol/L (21-32) L 12/06/16 05:00 Anion Gap 13.0 (6-13) 12/06/16 05:00 BUN 49 mg/dL (6-20) H 12/06/16 05:00 Creatinine 0.9 mg/dL (0.4-1.0) 12/06/16 05:00 Estimated GFR (MDRD) 61 (>89) L 12/06/16 05:00 Glucose 103 mg/dL (70-100) H 12/06/16 05:00 POC Whole Bld Glucose 193 mg/dL (70 - 100) H 12/06/16 16:33 Glycated Hemoglobin 6.2 % (4.6-6.2) 12/03/16 09:18 Estim Average Glucose 131 (70-100) H 12/03/16 09:18 Calcium 9.3 mg/dL (8.5-10.3) 12/06/16 05:00 Magnesium 1.6 mg/dL (1.7-2.8) L 12/04/16 21:17 Total Bilirubin 1.0 mg/dL (0.2-1.0) 12/06/16 05:00 AST 22 IU/L (10-42) 12/06/16 05:00 ALT 25 IU/L (10-60) 12/06/16 05:00 Alkaline Phosphatase 93 IU/L (42-121) 12/06/16 05:00 Total Creatine Kinase 35 IU/L (22-269) 12/04/16 04:45 Troponin I < 0.04 ng/mL (<0.49) 12/03/16 09:18 B-Natriuretic Peptide 381 pg/mL (5-100) H 12/04/16 10:21 Total Protein 6.5 g/dL (6.7-8.2) L 12/06/16 05:00 Albumin 2.9 g/dL (3.2-5.5) L 12/06/16 05:00 Globulin 3.6 g/dL (2.1-4.2) 12/06/16 05:00 Albumin/Globulin Ratio 0.8 (1.0-2.2) L 12/06/16 05:00 Lipase 45 U/L (22-51) 12/04/16 21:17 Urine Color BROWN 12/04/16 04:50 Urine Clarity HAZY (CLEAR) 12/04/16 04:50 Urine pH 5.5 PH (5.0-7.5) 12/04/16 04:50 Ur Specific [place] >=1.030 (1.002-1.030) H 12/04/16 04:50 Urine Protein 100 mg/dL (NEGATIVE) H 12/04/16 04:50 Urine Glucose (UA) NEGATIVE mg/dL (NEGATIVE) 12/04/16 04:50 Urine Ketones TRACE mg/dL (NEGATIVE) 12/04/16 04:50 Urine Occult Blood LARGE (NEGATIVE) H 12/04/16 04:50 Urine Nitrite NEGATIVE (NEGATIVE) 12/04/16 04:50 Urine Bilirubin NEGATIVE (NEGATIVE) 12/04/16 04:50 Urine Urobilinogen 0.2 (NORMAL) E.U./dL (NORMAL) 12/04/16 04:50 Ur Leukocyte Esterase NEGATIVE (NEGATIVE) 12/04/16 04:50 Urine RBC TNTC /HPF (0-5) H 12/04/16 04:50 Urine WBC 0-3 /HPF (0-5) 12/04/16 04:50 Ur Squamous Epith Cells RARE Squamous (<= Few) 12/04/16 04:50 Urine Bacteria Rare /HPF (None Seen) 12/04/16 04:50 Ur Microscopic Review INDICATED 12/04/16 04:50 Urine Culture Comments NOT INDICATED 12/04/16 04:50 - Procedures Procedures: Procedures REPLACEMENT OF LEFT LENS WITH SYNTH SUB, PERC APPROACH (01/08/16) REPLACEMENT OF RIGHT LENS WITH SYNTH SUB, PERC APPROACH (07/15/16)
[2016-12-06] MEDS ORDERED: MIN OIL/DIMETHICON/COCONUT OIL 92 GM TUBE TOP PRN (18:19)
[2016-12-06] MEDS: DIMETHICONE CREAM 118 ML TUBE TOP SCH ×2 (20:42→21:10)
[2016-12-06] MEDS: ATORVASTATIN 10 MG TABLET PO SCH (20:43)
[2016-12-06] MEDS: TRAVOPROST 0.004% OPHTH DROPS 2.5 ML RIGHTEYE SCH (20:45)
[2016-12-07] MEDS: acetaZOLAMIDE 250 MG TABLET PO SCH ×4 (01:02→19:58)
[2016-12-07 06:05] LABS: BASOPHILS % (AUTO) 0.2 %; EOSINOPHILS % (AUTO) 0.2 %; HCT - HEMATOCRIT 35.4 % (37.0-47.0); HGB - HEMOGLOBIN 11.5 g/dL (12.0-16.0); LYMPHOCYTES # (AUTO) 1.3 10^3/uL (1.5-3.5); LYMPHOCYTES % (AUTO) 18.7 %; MEAN CORPUSCULAR HEMOGLOBIN 28.3 pg (27.0-31.0); MEAN CORPUSCULAR HGB CONC 32.6 g/dL (32.0-36.0); MEAN CORPUSCULAR VOLUME 86.8 fL (81.0-99.0); MEAN PLATELET VOLUME 9.5 fL (7.9-10.8); MONOCYTES # (AUTO) 0.6 10^3/uL (0.0-1.0); MONOCYTES % (AUTO) 9.3 %; NEUTROPHILS # (AUTO) 4.8 10^3/uL (1.5-6.6); NEUTROPHILS % (AUTO) 71.6 %; NUCLEATED RED BLOOD CELLS AUTO 0.6 /100WBC; RED BLOOD COUNT 4.07 10^6/uL (4.20-5.40); RED CELL DISTRIBUTION WIDTH 19.6 % (12.0-15.0); UNCORRECTED WHITE BLOOD COUNT 6.7 x10^3/uL; WHITE BLOOD COUNT 6.7 x10^3/uL (4.8-10.8)
[2016-12-07] MEDS: SODIUM CHLORIDE FLUSH 0.9% 10 ML SYRINGE IVP SCH ×4 (06:56→20:01)
[2016-12-07] MEDS: BRINZOLAMIDE 1% OPHTH DROPS RIGHTEYE SCH ×3 (07:00→20:48)
[2016-12-07] MEDS: HEPARIN 5,000 UNIT/ML VIAL SUBQ SCH ×2 (08:04→20:00)
[2016-12-07] MEDS: ATENOLOL 25 MG TABLET PO SCH (08:05)
[2016-12-07] MEDS: MAGNESIUM OXIDE 400 MG TABLET PO SCH (08:05)
[2016-12-07] MEDS: FUROSEMIDE 20 MG TABLET PO SCH (08:05)
[2016-12-07] MEDS: POTASSIUM CHLORIDE 10 MEQ CAPSULE PO SCH (08:05)
[2016-12-07] MEDS: ASPIRIN EC 81 MG TABLET PO SCH (08:05)
[2016-12-07] MEDS: AZITHROMYCIN 250 MG TABLET PO SCH (08:05)
[2016-12-07] MEDS: amLODIPine 5 MG TABLET PO SCH (08:05)
[2016-12-07] MEDS: LISINOPRIL 20 MG TABLET PO SCH ×2 (08:05→19:58)
[2016-12-07] MEDS: NYSTATIN POWDER 15 GM TOP SCH ×2 (08:06→20:11)
[2016-12-07] MEDS: DIMETHICONE CREAM 118 ML TUBE TOP SCH ×2 (08:07→20:10)
[2016-12-07] MEDS: PANTOPRAZOLE 40 MG VIAL IV SCH (08:07)
[2016-12-07] MEDS: methylPREDNISolone SUCCINATE 40 MG/ML VIAL IVP SCH (08:07)
[2016-12-07] MEDS: POLYETHYLENE GLYCOL 3350 17 GM PACKET PO SCH (08:07)
[2016-12-07] MEDS: TIMOLOL 0.5% OPHTH DROPS RIGHTEYE SCH ×2 (08:08→20:05)
[2016-12-07] MEDS: cefTRIAXone 1 GM in SODIUM CHLORIDE 0.9% MINIBAG 100 ML IV SCH (08:12)
[2016-12-07] MEDS: INSULIN ASPART 300 UNIT/3 ML PEN SUBQ SCH ×4 (08:13→20:48)
[2016-12-07] MEDS: INSULIN GLARGINE 300 UNIT/3 ML PEN SUBQ SCH (08:25)
--- NOTE | 2016-12-07 11:17 | PROVIDER PROGRESS NOTE ---
Subjective - Prog Note Date Prog Note Date: 12/07/16 Prog Note Time: 11:09 - Subjective Pt reports feeling: No change Subjective: The patient is with slurred speech. Delayed thought process. On the one hand she says that her ольга Duran is but will also states that he is coming in on his way to take care of her. She is worried about her finances and feels that [employer] is using her credit card to steal from her. But a lady in [place] will be looking out for her finances before she goes to [place]. Vital signs have been stable for the last day. She has had no fever. Oxygen requirements are 2 L and she saturates at 100%. I had a long talk with her cousin Patrick Ling. She wanted her phone and could not figure out how to open the slit phone. The nurse and I opened it up for her and she was able to identify people on her contact list that she speaks to on a regular basis. The first number she gave us for her ольга Duran is a gentleman who has no idea who she is. The second number that she gave me for Roger is disconnected. I was unable to speak to Patrick at [phone]. He says that this woman is incredibly stubborn. Refuses to be placed. He is a nursing home social worker and has been trying to talk her into assisted living for quite some time now. She is always been a bit of a slug and not ambitious about keeping active. It got worse after she broke both legs in separate falls and she essentially gave up from the pain. Spends most of her time in a wheelchair or sitting down. She has 2 dogs. 1 of them were just . The house is filthy. If it were up to him he would take the remaining dog to be euthanized or to a kennel. He describes her as actually quite good intellectually. Then 3 weeks ago something change. She was given a pill or medication to prepare her for eye surgery. And ever since then he has noted that her speech has been slurred, thought processes off. He speaks to her at least once a week. Knows her pretty well. While he recognizes that she is making poor choices, and should be living in an assisted living facility, he also states that there is something new happening and he cannot put his finger on it. She herself will roll her eyes at me. She curls her upper lip and discussed when I talk about having to place her after the stay for pneumonia. "All of you people keep on saying that". She recognizes that she is weak. But she is able to eat all of her breakfast. Denies any specific back neck or head pain. CT of head was negative. CXR was negative 12/03 and on repeat 12/05 had a progression of either pneumonia or inflammatory process. Review of vitals shows consistent bradycardia. Normotensive. No fever except once. WBC nml. No change in O2 need. BNP 300's. Current Medications - Current Medications Current Medications: Active Medications Acetazolamide (Diamox) 250 mg PO Q6H [facility] Last Admin: 12/07/16 08:05 Dose: 250 mg Albuterol/Ipratropium (Duoneb) 3 ml INH Q4HR PRN PRN Reason: Wheezing Amlodipine Besylate (Norvasc) 5 mg PO DAILY [facility] Last Admin: 12/07/16 08:05 Dose: 5 mg Aspirin (Ecotrin) 81 mg PO DAILY [facility] Last Admin: 12/07/16 08:05 Dose: 81 mg Atenolol (Tenormin) 50 mg PO DAILY [facility] Last Admin: 12/07/16 08:05 Dose: 50 mg Atorvastatin Calcium (Lipitor) 10 mg PO QPM [facility] Last Admin: 12/06/16 20:43 Dose: 10 mg Azithromycin (Zithromax) 500 mg PO DAILY [facility] Last Admin: 12/07/16 08:05 Dose: 500 mg Brinzolamide (Azopt 1% Ophth Drops) 1 drops RIGHTEYE TID [facility] Last Admin: 12/07/16 07:00 Dose: 1 drops Dimethicone (Remedy Skin Repair) 1 applic TOP BID [facility] Last Admin: 12/07/16 08:07 Dose: 1 applic Diphenhydramine HCl (Benadryl) 25 mg PO QPM PRN PRN Reason: Insomnia Furosemide (Lasix) 20 mg PO DAILY [facility] Last Admin: 12/07/16 08:05 Dose: 20 mg Heparin Sodium (Porcine) () 5,000 unit SUBQ BID [facility] Last Admin: 12/07/16 08:04 Dose: 5,000 unit Ceftriaxone Sodium 1 gm/ (Sodium Chloride) 100 mls @ 200 mls/hr IV DAILY [facility] Last Infusion: 12/07/16 08:42 Dose: Infused Insulin Aspart (Novolog) 1 - 5 unit SUBQ 0800,1200,1700,2100 [facility] PRN Reason: Protocol Last Admin: 12/07/16 08:13 Dose: Not Given Insulin Glargine (Lantus Solostar) 36 unit SUBQ DAILY [facility] Last Admin: 12/07/16 08:25 Dose: 36 unit Lisinopril (Zestril) 20 mg PO BID [facility] Last Admin: 12/07/16 08:05 Dose: 20 mg Magnesium Oxide (Mag Ox) 400 mg PO DAILYWM [facility] Last Admin: 12/07/16 08:05 Dose: 400 mg Methylprednisolone (Solu-Medrol (40mg Vial)) 20 mg IVP DAILY [facility] Last Admin: 12/07/16 08:07 Dose: 20 mg Mineral Oil (Cavilon) 1 applic TOP PRN PRN PRN Reason: Skin Care Last Admin: 12/06/16 20:42 Dose: 1 applic Naproxen (Naprosyn) 250 mg PO DAILY PRN PRN Reason: PAIN Nystatin (Nystop) 0 applic TOP BID [facility] Last Admin: 12/07/16 08:06 Dose: 1 applic Ondansetron HCl (Zofran Inj) 4 mg IVP Q4H PRN PRN Reason: Nausea / Vomiting Pantoprazole Sodium (Protonix) 40 mg IV DAILY [facility] Last Admin: 12/07/16 08:07 Dose: 40 mg Polyethylene Glycol (Miralax) 17 gm PO DAILY [facility] Last Admin: 12/07/16 08:07 Dose: 17 gm Potassium Chloride (Micro-K) 10 meq PO 0800 [facility] Last Admin: 12/07/16 08:05 Dose: 10 meq Sodium Chloride (Normal Saline Flush 0.9%) 10 ml IVP PRN PRN PRN Reason: NEEDED PER PROVIDER ORDERS Sodium Chloride (Normal Saline Flush 0.9%) 10 ml IVP Q8HR [facility] Last Admin: 12/07/16 07:01 Dose: 10 ml Timolol Maleate (Timoptic 0.5% Ophth Drops) 1 drops RIGHTEYE BID [facility] Last Admin: 12/07/16 08:08 Dose: 1 drops Travoprost (Travatan Z) 1 drops RIGHTEYE QPM [facility] Last Admin: 12/06/16 20:45 Dose: Not Given Aspirin [Aspir-Low] 81 mg PO DAILY 01/07/16 Atenolol 50 mg PO DAILY 01/07/16 Lisinopril 20 mg PO BID 01/07/16 Insulin Glargine,Hum.rec.anlog [Lantus] 36 unit SQ DAILY 07/15/16 Brinzolamide/Brimonidine Tart [Simbrinza 1%-0.2% Eye Drops] 1 drops Q4H Furosemide 20 mg PO DAILY 11/30/16 Potassium Chloride [Micro-K] 10 meq PO 0800 11/30/16 Simvastatin 20 mg PO DAILY 11/30/16 Timolol 0.5% Ophth Drops [Timoptic 0.5% Ophth Drops] 1 drops Q4H 11/30/16 Travoprost [Travatan Z] 1 drops OP Q4H 11/30/16 amLODIPine [Norvasc] 5 mg DAILY 11/30/16 metFORMIN [Glucophage] 1,275 mg PO BID 11/30/16 Acetazolamide [Acetazolamide] 250 mg PO QID 12/06/16 Objective - Vital Signs/Intake & Output Reviewed Vital Signs: Yes Vital Signs: Vital Signs x48h Temp Pulse Resp BP Pulse Ox 12/07/16 08:08 36.2 C L 54 L 18 131/51 H 100 12/07/16 05:50 36.3 C L 56 L 18 134/60 H 99 Intake & Output: Intake & Output 12/04/16 12/05/16 12/06/16 12/07/16 23:59 23:59 23:59 23:59 Intake Total 660 890 380 Output Total 1355 1625 450 Balance -695 -735 -70 - Objective General Appearance: positive: No acute distress, Lethargic (or at least psychomotor slowing that her cousin states is new) Eyes Bilateral: positive: PERRL, EOMI, Other (slcera injected.). negative: Conjunctivae nml (red swollen) ENT: positive: Other (no nasal tone of voice, no cough, no rhinorrhea) Neck: positive: No JVD. negative: Lymphadenopathy (R), Lymphadenopathy (L), Stiff neck, Carotid bruit Respiratory: positive: Chest non-tender, Wheezes (present in upper lungs). negative: Breath sounds nml (severely diminished at bases and quite above that with slow shallow respiration), Rales, Rhonchi Cardiovascular: positive: Regular rate & rhythm. negative: Systolic murmur, Gallop/S4, Friction rub Abdomen: positive: Non-tender, Nml bowel sounds, No distention, Other (obese) Skin: positive: No rash, Warm Extremities: positive: Other (she had 2+ edema of her calves and shins on admit. RN from yesterday is taking care of her today and they are much improved. After kurles and xeroform dressing removed: Mid shins are red skin. not warm. multiple .05-1.5 cm yellow scaling skin lesions cover the area. Some deroofed and open but no cellulitis, no drainage . Much less edema and shrunken skin evident.) Neurologic/Psychiatric: positive: CN's nml (2-12), Disoriented to time, Slurred/ abnml speech (new according to cousin). negative: Motor nml (generalized weakness and she can't sit up to transfer on her own. no focal weakness.), Facial droop, Depressed mood/affect - Lab Results Fish Bones: 12/07/16 05:38 12/06/16 05:00 Other Labs: Lab Results x24hrs 12/07/16 12/07/16 12/07/16 Range/Units 07:38 05:38 05:38 WBC 6.7 (4.8-10.8) x10^3/uL RBC 4.07 L (4.20-5.40) 10^6/uL Hgb 11.5 L (12.0-16.0) g/dL Hct 35.4 L (37.0-47.0) % MCV 86.8 (81.0-99.0) fL MCH 28.3 (27.0-31.0) pg MCHC 32.6 (32.0-36.0) g/dL RDW 19.6 H (12.0-15.0) % Plt Count 201 (130-450) 10^3/uL MPV 9.5 (7.9-10.8) fL Neut # 4.8 (1.5-6.6) 10^3/uL Lymph # 1.3 L (1.5-3.5) 10^3/uL [place]haw # 0.6 (0.0-1.0) 10^3/uL Eos # 0.0 (0.0-0.7) 10^3/uL Baso # 0.0 (0.0-0.1) 10^3/uL Absolute Nucleated RBC 0.04 x10^3/uL Nucleated RBC % 0.6 /100WBC POC Whole Bld Glucose 122 H (70 - 100) mg/dL Magnesium 2.0 (1.7-2.8) mg/dL 12/06/16 12/06/16 Range/Units 20:42 16:33 WBC (4.8-10.8) x10^3/uL RBC (4.20-5.40) 10^6/uL Hgb (12.0-16.0) g/dL Hct (37.0-47.0) % MCV (81.0-99.0) fL MCH (27.0-31.0) pg MCHC (32.0-36.0) g/dL RDW (12.0-15.0) % Plt Count (130-450) 10^3/uL MPV (7.9-10.8) fL Neut # (1.5-6.6) 10^3/uL Lymph # (1.5-3.5) 10^3/uL K[place]haw # (0.0-1.0) 10^3/uL Eos # (0.0-0.7) 10^3/uL Baso # (0.0-0.1) 10^3/uL Absolute Nucleated RBC x10^3/uL Nucleated RBC % /100WBC POC Whole Bld Glucose 175 H 193 H (70 - 100) mg/dL Magnesium (1.7-2.8) mg/dL Assessment/Plan - Problem List (1) Community acquired pneumonia Impression: bilateral lung disease. this is the ongoing diagnosis as the cause of admission with confusion, weakness treated with IV Rocephin and Azithromycin Day #3 blood cultures negative since there is question of an inflammatory process and not just simple pneumonia , will check CT chest will decrease O2 since she is at 100% with 2 liters NC O2 (2) Uncontrolled type 2 diabetes mellitus Assessment/Plan: is being treated with SQ Lantus and Novalog Sliding Scale with meals controlled glucose no change in meds will be ordered today Selected Entries 12/06/16 12/06/16 12/06/16 08:00 11:37 16:46 Result (mg/dL) 82 132 193 12/06/16 12/07/16 12/07/16 21:00 08:00 08:13 Result (mg/dL) 175 122 122 12/07/16 08:25 Result (mg/dL) 122 (3) Hypertension Assessment/Plan: will be treated with norvasc and lisinopril controlled with 120's to 130's systolic (4) Hyperlipidemia Assessment/Plan: will be treated with simvastatin (5) Osteoarthritis Assessment/Plan: will be treated with naproxen (6) Glaucoma Assessment/Plan: will be treated with timolol, trovoprost, simbrinza (brimonidine/brinzolamide) and prednisoline eye drops. she was started on acetazolamide July 2016 after verification with [facility] in [place] acetazolamide can cause confusion. (7) Insomnia Assessment/Plan: will be treated with benadryl (8) Weakness of both lower limbs Assessment/Plan: the patient will get a PT evaluation and treatment Per PT: Pt is a 76 y.o. F, normally independent w/all ADL, mobility (per her report) who presents w/severe U/LE weakness, unable to stand and who needs 2 person assist for bed mobility, transfers to sitting; she is expected to need continued PT in hospital, 1-2x/day for strengthening and progression of functional mobility; pt. will likely need transfer to a SNF after hospital d/c to continue working w/PT toward her independent mobiity; pt. is not safe transfer to home at this time due to needing continued strengthening. [ End ] (9) Pulmonary edema Qualifiers: Chronicity: acute Qualified Code(s): J81.0 - Acute pulmonary edema Assessment/Plan: will be treated with lasix review of I/O has her about Negative 1200 cc up to this note being written. Check ECHO if not done with recent admissions As above CT being ordered. (10) metabolic encephalopathy present on admisson subacute and ongoing for >3 weeks according to her cousin Patrick who knows her well and speaks to her weekly from [place], [place] CT of head negative review of meds shows no new benzodiazepines, no narcotics. The last time she was rx'd and received them was 2013 according to [facility] records new drug of diamox Could this be the cause? she does have ER visit for pareatheias and numbness and tingling right after the medicine. Review of her labs do show change in chloride and anion gap Laboratory Tests 07/12/14 01/07/15 07/23/15 09:35 09:22 09:27 Chloride 104 102 99 L Carbon Dioxide 29 Anion Gap 6.0 10.0 BUN 18 Creatinine 0.7 12/06/16 05:00 Chloride 112 H Carbon Dioxide 20 L Anion Gap BUN Creatinine (11) Venous stasis vs. stasis and cellulitis ongoing wound care. much improved today.
--- NOTE | 2016-12-07 17:44 | CT Report ---
CT CHEST WITHOUT CONTRAST: 12/07/2016 CLINICAL INDICATION: Bilateral air-space disease. COMPARISON: Plain film 12/05/2016. Axial CT images of the chest were obtained without intravenous contrast. In accordance with CT protocol optimization, one or more of the following dose reduction techniques w ere utilized for this exam: automated exposure control, adjustment of mA and/or KV based on patient size, or use of iterative reconstructive technique. The heart and great vessels demonstrate mild atherosclerotic calcification. No hilar or mediastinal lymphadenopathy is present. The lungs demonstrate bilateral infiltrates, upper lobes worse than lowe r lobes. No effusion or pneumothorax is present. Limited evaluation of upper abdominal structures d emonstrates normal adrenal glands. Osseous structures demonstrate degenerative changes. IMPRESSION: DIFFUSE INFILTRATES, UPPER LOBES WORSE THAN LOWER LOBES. JOB #: [id number] EXT JOB #:[id number]
[2016-12-07] MEDS: ATORVASTATIN 10 MG TABLET PO SCH (19:58)
[2016-12-07] MEDS: TRAVOPROST 0.004% OPHTH DROPS 2.5 ML RIGHTEYE SCH (20:00)
[2016-12-08] MEDS: acetaZOLAMIDE 250 MG TABLET PO SCH (02:11)
[2016-12-08] MEDS: SODIUM CHLORIDE FLUSH 0.9% 10 ML SYRINGE IVP SCH (05:33)
[2016-12-08] MEDS: BRINZOLAMIDE 1% OPHTH DROPS RIGHTEYE SCH (05:33)
[2016-12-08] MEDS: INSULIN ASPART 300 UNIT/3 ML PEN SUBQ SCH ×2 (08:34→12:42)
--- NOTE | 2016-12-08 09:31 | Discharge Plan ---
"Discharge Plan for SNF - DC Plan and Transition Orders Disposition: SNF DC/Xfer Condition: Stable SNF Transition Orders: Admit to: [facility] under the care of Nella Muñiz Discharge Diagnosis: 1. Pneumonia 2. Abnormal CXR 3. Type 2 DM 4. Morbid obesity with immobility 5. deconditioning 6. HTN 7. glaucoma Medicare Certification: I certify that Post Hospital correction care is medically necessary on a continuing basis for any of the conditions for which she/he is receiving care during hospitalization. Notify PCP of admission and forward orders to primary provider for signature. Weight on admission and Weekly. Call PCP immediately if weight increases by 5 pounds or if patient develops dyspnea, chest pain/tightness or edema. House Bowel Program: Yes If no BM after 2 days, nurse may give M.O.M. 30ml PO PRN and /or ducolax Supp 1 AR and /or MORGAN 250mg P.O., and/or senna 1-2 tabs PO. On day 3 nurse may give repeat above order until residents constipation is resolved. Immunizations: Annual Influenza Vaccine: [Yes (between Oct 22 and May 21.) Unless allergy or already given Two-Step PPD: [Yes per [facility] [id number] or appropriate documentation of approved exceptions Treatments & Other Orders: clean shins daily with soap and water. Cover with xeroform sheet and then kerlex. Oxygen Orders: O2 to keep sats >92% prn Lab Tests or X-Rays Orders: [BNP and BMP in one week] Orthopedic Orders: None Medications: SEE ATTACHED MEDICATION AND DIAGNOSIS LIST. Allergies and Adverse Reactions: Allergies Allergy/AdvReac Type Severity Reaction Status Date / Time No Known Drug Allergies Allergy Verified 12/03/16 09:01 - Medications New Prescriptions: Ampicillin Trihydrate 500 mg PO BID #6 capsule - Diet Type: No added sugar Texture: Regular Liquids: Thin May have monthly special meal: Yes - Therapies | Activity Therapy: Evaluation | Treat if indicated: PT, OT Rehabilitation Potential: Return to independent living Activity: Activity as Tolerated Assistance Devices: Wheelchair, Walker Insulin Orders - SNF Basal | Correction | Custom Orders: Diagnosis: Diabetes Initiate hypo and hyperglycemia protocols for BG <70 and BG >375. May check BG prn for signs/symptoms of dysglycemia. Frequency of BG checks: [AC/Meal/HS] Basal Insulin: X Lantus 100 units / ml inject subq as follows: 36 units SQ daily in am Correction Insulin: - Select the type of insulin below Choose: [id number] units /ml insulin inject subq per orders indicate below X LOW DOSE MODERATE DOSE MODERATE/HIGH DOSE HIGH DOSE GB UNITS GB UNITS GB UNITS GB UNITS 61-140 0 UNITS 61-140 0 UNITS 61-140 0 UNITS 61-140 0 UNITS 141-175 1 UNITS 141-175 1 UNITS 141-175 2 UNITS 141-175 3 UNITS 176-225 2 UNITS 176-225 3 UNITS 176-225 4 UNITS 176-225 5 UNITS 226-275 3 UNITS 226-275 5 UNITS 226-275 6 UNITS 226-275 7 UNITS 276-325 4 UNITS 276-325 7 UNITS 276-325 8 UNITS 276-325 9 UNITS 326-375 5 UNITS 326-375 9 UNITS 326-375 10 UNITS 326-375 11 UNITS >375 CONTACT MD >375 CONTACT MD >375 CONTACT MD >375 CONTACT MD Custom Dosing: Choose: Novolog/Humalog 100 units/ml Insulin inject subq as follows: GB Units 61-140 [] Units 141-175 [] Units 176-225 [] Units 226-275 [] Units 276-325 []Units 326-375 [] Units >375 Contact MD"
[2016-12-08] MEDS: cefTRIAXone 1 GM in SODIUM CHLORIDE 0.9% MINIBAG 100 ML IV SCH (09:43)
[2016-12-08] MEDS ORDERED: cefTRIAXone 1 GM VIAL ONE (09:46)
[2016-12-08] MEDS: ATENOLOL 25 MG TABLET PO SCH (10:37)
[2016-12-08] MEDS: FUROSEMIDE 20 MG TABLET PO SCH (10:37)
[2016-12-08] MEDS: amLODIPine 5 MG TABLET PO SCH (10:38)
[2016-12-08] MEDS: ASPIRIN EC 81 MG TABLET PO SCH (10:39)
[2016-12-08] MEDS: MAGNESIUM OXIDE 400 MG TABLET PO SCH (10:40)
[2016-12-08] MEDS: AZITHROMYCIN 250 MG TABLET PO SCH (10:40)
[2016-12-08] MEDS: POTASSIUM CHLORIDE 10 MEQ CAPSULE PO SCH (10:41)
[2016-12-08] MEDS: HEPARIN 5,000 UNIT/ML VIAL SUBQ SCH (10:41)
[2016-12-08] MEDS: DIMETHICONE CREAM 118 ML TUBE TOP SCH (10:41)
[2016-12-08] MEDS: INSULIN GLARGINE 300 UNIT/3 ML PEN SUBQ SCH (10:42)
[2016-12-08] MEDS: LISINOPRIL 20 MG TABLET PO SCH (10:43)
[2016-12-08] MEDS: methylPREDNISolone SUCCINATE 40 MG/ML VIAL IVP SCH (10:44)
[2016-12-08] MEDS: PANTOPRAZOLE 40 MG VIAL IV SCH (10:47)
[2016-12-08] MEDS: POLYETHYLENE GLYCOL 3350 17 GM PACKET PO SCH (10:48)
[2016-12-08] MEDS: NYSTATIN POWDER 15 GM TOP SCH (10:48)
[2016-12-08] MEDS: TIMOLOL 0.5% OPHTH DROPS RIGHTEYE SCH (10:48)
[2016-12-08 12:32] VITALS: BP 143/59
--- NOTE | 2016-12-10 06:20 | DISCHARGE SUMMARY ---
DATE OF ADMISSION: 12/05/2016 DATE OF DISCHARGE: 12/08/2016 PRIMARY CARE PROVIDER: Nella Muñiz PA-C. DISCHARGE DIAGNOSES 1. Abnormal chest x-ray indicating possible community-acquired pneumonia. 2. Metabolic encephalopathy. 3. Uncontrolled type 2 diabetes mellitus. 4. Hypertension. 5. Glaucoma. 6. Morbid obesity with immobility. DISCHARGE MEDICATIONS 1. Norvasc 5 mg a day. 2. Ampicillin 500 mg p.o. b.i.d. for 3 more days. 3. Zithromax 500 mg p.o. daily for 3 more days. 4. Aspirin 81 mg daily. 5. Atenolol 50 mg daily. 6. Benzolamide with brimonidine tartrate 1 drop every 4 hours both eyes. 7. Timolol eyedrops 1 drop to both eyes every 4 hours. 8. Travatan eyedrops 1 drop to both eyes every 4 hours. 9. Atenolol 50 mg a day. 10. Lasix 20 mg a day. 11. Lantus 36 units daily. 12. Lisinopril 20 mg p.o. b.i.d. 13. Magnesium oxide 400 mg p.o. daily. 14. Glucophage 1275 mg p.o. b.i.d. 15. Naprosyn 250 mg daily. 16. Nystatin topical solution to intertriginous folds b.i.d. 17. Potassium 10 mEq p.o. daily. 18. Simvastatin 20 mg p.o. daily. PRINCIPAL PROCEDURES 1. Echocardiogram showing normal left ventricular wall function and ejection fraction with diastolic dysfunction, indeterminate. Minimal valvular heart disease with no severe stenosis. At most, mild to moderate mitral regurgitation. 2. Head CT on 12/04 was without acute changes. 3. Chest x-ray on 12/04 showed progression of upper lobe infiltrates or inflammatory changes. 4. Chest CT with diffuse infiltrates in upper lobes, worse than lower lobes. No effusion or pneumothorax. HOSPITAL COURSE: This patient is well known to the hospitalist service. She lives alone and has intermittent help at home with care providers and in-home support. She is a fiercely independent individual who refuses to be placed. She has been brought into the facility numerous times by ambulance or by her own sister who states that she is not safe to live at home. The patient, once stabilized in the hospital, would then have transition to possible snf facility placement for rehabilitation recommended but she has refused. Social Work has worked with the patient on numerous occasions trying to find the right placement for her, but again, she refuses. With this encounter, she came to the emergency room on 12/03 because she had fallen and hurt herself. She had fallen across the bed. She had back pain and she felt like she could not walk anymore. In the emergency room, she was normotensive, afebrile, chest x-ray was negative, and pelvis x-ray was negative. The patient was getting ready to be sent home, when she decided that it was unsafe for her to go home. She just could not be mobile enough to take care of herself and her care provider was going to be gone for the weekend. So, she stayed in the emergency room overnight on 12/03, and on 12/[address] was done for new confusion and that head CT was negative. On 12/05, a chest x-ray showed progression of disease from the 12/03 x-ray, and as such she felt to have "pneumonia." She was afebrile throughout her stay in the emergency room. White cell count was normal when she was in the emergency room. The patient did not have a cough, but nevertheless her chest x-ray abnormality was quite impressive. On 12/03, she was 100% saturating on room air. On 12/04, she dropped down to 90-91% on room air. Hospital course consisted of treating pneumonia. An attempt to address why she would have worsening infiltrates, but no congestive heart failure, no fever, no white cell count, was performed with an echocardiogram was done, as well as a CT of the chest was done. The echocardiogram showed essentially normal left ventricular wall motion. She did not have right-sided heart failure. CT of the chest was done to make sure this infiltrate was not nefarious etiology and while she did have diffuse infiltrates in the upper lobes, one side worse than the other, they were not clearly indicative of pneumonia. It was a puzzling clinical picture. In addition to her abnormal chest x-ray that was treated as pneumonia, the patient was also more confused than usual. I contacted her cousin , Patrick, he talks to her at least once a week. He is from their hometown of [place], [place]. He says that something happened 3-4 months ago. He recognizes that she is a stubborn intransigent person. He himself is a social worker psychiatric and has felt that she should have been placed at least 2 years ago, but she has refused. A lot of it has to do with her dogs at home. One has recently , and with the second one still at home, she lets him rule the roost. The place is quite dirty with dog poop, dog urine, and her inability to be mobile to clean up after her dogs. But, something happened 3 or 4 months ago. While she may be stubborn, he never felt that she was confused and he never felt that she was hallucinating. Something changed 3 months ago. The only new medication I could find was that of acetazolamide. She has severe glaucoma and she was started on acetazolamide by her brood station manager. She was started on acetazolamide in July, and there are emergency room encounters where she was complaining of tingling of the neck, arms, and face, then followed by generalized weakness. There is a possibility that the acetazolamide is the cause of those emergency room encounters. I am now wondering if the acetazolamide is also responsible for some of her confusion since that side effect is listed as a possibility. She never had signs of sepsis, she was not on any new medications that would be sedative, and such I stopped the acetazolamide. Morbid obesity with immobility is a barrier to her ability to walk around and take care of herself. Nevertheless, however, this is one of the motivating factors for her to get home. She says that she is willing to go to a snf facility as long as they can rehab her and then she can get home to her own place. In addition to the above problems, diabetes was addressed. Glucose during her stay was controlled at 115-140s on a regular basis. A1c was 6.2%. She was continued on sliding scale insulin, as well as her metformin being held until she was transferred to the snf facility again. An additional observation made during her stay was that of continued bradycardia on atenolol. She was consistently in the 50s. Blood pressure was in the 140s-130s systolic over 50s regularly. Blood cultures were negative and urinalysis did have hematuria, but it was microhematuria. It is still unclear why this patient's chest x-ray became so abnormal. It was not felt to be overt congestive heart failure, and again while we treated her for pneumonia, I am puzzled by the lack of fever, elevated white cell count, or severe hypoxia. At the time of discharge, she was on room air and oxygenating well. She was transitioned to a snf facility, stable condition. Temperature 36.6, pulse 59, blood pressure 143/59, respirations 16, 92% on room air. She is a super obese, older female who looks older than her stated age. Slack facies. Psychomotor delay in conversation at times. Neck was supple, very difficult to assess for JVD because of its size and girth. Lungs had diminished breath sounds at the bases without tachypnea, crackles, rhonchi, or wheezing. No increased respiratory effort with talking to me or transitioning to the gurney. PMI was normally placed. Distant cardiac tones with a regular rate and rhythm. The abdomen is hugely obese, soft, nontender with some Michaelle intertrigo that is being treated by nystatin. The legs were huge, and she had been admitted with venous stasis dermatitis and dry scaling skin on her shins. She had a Xeroform dressing with Kerlix bandages on top. When those were removed , much of the redness and erythema had resolved over 2 days according to the nurse who had been taking care of her consistently. There was still some scaling , but no open ulcerations. No oozes. Still with residual redness over the mid shins. We find that she needs to have repeated cues to focus on her tasks and to keep eyes open. She is able to follow instructions with regards to upper extremity exercises, but her straight leg raises are more difficult. Greater than 30 minutes was spent in coordinating discharge. JOB #: [id number] EXT JOB #:[id number] BRYCE
== END 2016-12-08 13:25 | DRG 193 ==
LOC: EDUNIT# → ED 08:52 → MS2 12-05 16:18
PROVIDERS: ATTEND Specialist
DX: E16.2 Hypoglycemia, unspecified (principal); J18.9 Pneumonia, unspecified organism; G93.41 Metabolic encephalopathy; I10 Essential (primary) hypertension; E78.00 Pure hypercholesterolemia, unspecified; R35.0 Frequency of micturition; L03.119 Cellulitis of unspecified part of limb; E11.59 Type 2 diabetes mellitus with other circulatory complications; I87.2 Venous insufficiency (chronic) (peripheral); E11.649 Type 2 diabetes mellitus with hypoglycemia without coma; I11.0 Hypertensive heart disease with heart failure; I50.810 Right heart failure, unspecified; H40.9 Unspecified glaucoma; E66.01 Morbid (severe) obesity due to excess calories; Z68.29 Body mass index [BMI] 29.0-29.9, adult; R00.1 Bradycardia, unspecified; B37.2 Candidiasis of skin and nail; R53.1 Weakness; R26.2 Difficulty in walking, not elsewhere classified; E78.5 Hyperlipidemia, unspecified; M19.90 Unspecified osteoarthritis, unspecified site; G47.00 Insomnia, unspecified; Z66 Do not resuscitate; Z79.4 Long term (current) use of insulin; Z79.84 Long term (current) use of oral hypoglycemic drugs; Z79.82 Long term (current) use of aspirin; Z79.899 Other long term (current) drug therapy; Z87.891 Personal history of nicotine dependence; Z91.81 History of falling
CPT/HCPCS: 36415; 36600; 51701; 51702; 70450; 71010; 71020; 71250; 72170; 80048; 80053; 81001; 81003; 82550; 82803; 83036; 83690; 83735; 83880; 84484; 85025; 87040; 87086; 93306; 99285

== ENCOUNTER 2016-12-15 14:25 | Outpatient (CLI) | payer MEDICARE, OTHER ==
[2016-12-15 16:51] LABS: BASOPHILS # (AUTO) 0.1 10^3/uL (0.0-0.1); BASOPHILS % (AUTO) 0.8 %; EOSINOPHILS # (AUTO) 0.3 10^3/uL (0.0-0.7); EOSINOPHILS % (AUTO) 2.2 %; HCT - HEMATOCRIT 40.3 % (37.0-47.0); HGB - HEMOGLOBIN 12.9 g/dL (12.0-16.0); LYMPHOCYTES # (AUTO) 1.8 10^3/uL (1.5-3.5); LYMPHOCYTES % (AUTO) 15.8 %; MEAN CORPUSCULAR HEMOGLOBIN 27.6 pg (27.0-31.0); MEAN CORPUSCULAR HGB CONC 31.9 g/dL (32.0-36.0); MEAN CORPUSCULAR VOLUME 86.5 fL (81.0-99.0); MONOCYTES % (AUTO) 8.8 %; NEUTROPHILS # (AUTO) 8.4 10^3/uL (1.5-6.6); NEUTROPHILS % (AUTO) 72.4 %; RED BLOOD COUNT 4.66 10^6/uL (4.20-5.40); RED CELL DISTRIBUTION WIDTH 19.5 % (12.0-15.0); UNCORRECTED WHITE BLOOD COUNT 11.6 x10^3/uL; WHITE BLOOD COUNT 11.6 x10^3/uL (4.8-10.8)
[2016-12-15 17:03] LABS: ALBUMIN/GLOBULIN RATIO 0.9 (1.0-2.2); BILIRUBIN,TOTAL 0.8 mg/dL (0.2-1.0); CALCIUM 9.4 mg/dL (8.5-10.3); POTASSIUM 3.8 mmol/L (3.5-5.0); TOTAL PROTEIN 6.5 g/dL (6.7-8.2)
== END 2016-12-15 14:26 | disposition home or self-care (01) ==
LOC: LAB.R 14:25
DX: N18.9 Chronic kidney disease, unspecified (principal); D64.9 Anemia, unspecified; I50.9 Heart failure, unspecified
CPT/HCPCS: 80053; 83880; 85025

== ENCOUNTER 2016-12-16 20:40 | Outpatient (CLI) | payer MEDICARE, OTHER ==
[2016-12-16 22:39] LABS: BILIRUBIN,URINE NEGATIVE (NEGATIVE)
[2016-12-16 22:42] LABS: UA w/ MICROSCOPIC CHARGE YES
[2016-12-16 22:48] LABS: UR CULTURE IF IND NOT INDICATED; WBC,URINE 0-3 /HPF (0-5)
== END 2016-12-16 20:41 | disposition home or self-care (01) ==
LOC: LAB.R 20:40
DX: N39.0 Urinary tract infection, site not specified (principal)
CPT/HCPCS: 81001; 81003; 87086

== ENCOUNTER 2017-01-06 08:00 | Outpatient (CLI) | payer MEDICARE, OTHER ==
[2017-01-06 22:38] LABS: BASOPHILS % (AUTO) 0.6 %; EOSINOPHILS # (AUTO) 0.1 10^3/uL (0.0-0.7); EOSINOPHILS % (AUTO) 1.5 %; HCT - HEMATOCRIT 37.6 % (37.0-47.0); HGB - HEMOGLOBIN 12.6 g/dL (12.0-16.0); LYMPHOCYTES # (AUTO) 1.4 10^3/uL (1.5-3.5); LYMPHOCYTES % (AUTO) 18.7 %; MEAN CORPUSCULAR HEMOGLOBIN 28.5 pg (27.0-31.0); MEAN CORPUSCULAR HGB CONC 33.5 g/dL (32.0-36.0); MEAN CORPUSCULAR VOLUME 85.3 fL (81.0-99.0); MEAN PLATELET VOLUME 9.2 fL (7.9-10.8); MONOCYTES # (AUTO) 0.6 10^3/uL (0.0-1.0); NEUTROPHILS # (AUTO) 5.4 10^3/uL (1.5-6.6); NEUTROPHILS % (AUTO) 71.2 %; RED CELL DISTRIBUTION WIDTH 18.5 % (12.0-15.0); UNCORRECTED WHITE BLOOD COUNT 7.6 x10^3/uL; WHITE BLOOD COUNT 7.6 x10^3/uL (4.8-10.8)
[2017-01-06 22:46] LABS: ALBUMIN/GLOBULIN RATIO 1.2 (1.0-2.2); BILIRUBIN,TOTAL 0.7 mg/dL (0.2-1.0); CREATININE 0.9 mg/dL (0.4-1.0); POTASSIUM 3.6 mmol/L (3.5-5.0); TOTAL PROTEIN 6.5 g/dL (6.7-8.2)
== END 2017-01-06 08:01 | disposition home or self-care (01) ==
LOC: LAB.R 08:00
DX: I10 Essential (primary) hypertension (principal); D64.9 Anemia, unspecified
CPT/HCPCS: 80053; 85025

== ENCOUNTER 2017-01-07 09:45 | Outpatient (CLI) | payer MEDICARE, OTHER ==
[2017-01-07 12:29] LABS: BILIRUBIN,URINE NEGATIVE (NEGATIVE); PH,URINE 5.5 PH (5.0-7.5)
[2017-01-07 12:30] LABS: UA w/ MICROSCOPIC CHARGE YES
[2017-01-07 12:40] LABS: UR CULTURE IF IND INDICATED
== END 2017-01-07 09:46 | disposition home or self-care (01) ==
LOC: LAB.R 09:45
DX: N39.0 Urinary tract infection, site not specified (principal)
CPT/HCPCS: 81001; 81003; 87077; 87086

== ENCOUNTER 2017-01-17 14:15 | Outpatient (CLI) | payer MEDICARE, OTHER ==
[2017-01-17 18:56] LABS: BILIRUBIN,URINE NEGATIVE (NEGATIVE); PH,URINE 5.5 PH (5.0-7.5)
[2017-01-17 19:01] LABS: UA w/ MICROSCOPIC CHARGE YES
[2017-01-17 19:07] LABS: UR CULTURE IF IND NOT INDICATED; WBC,URINE >25 /HPF (0-5)
== END 2017-01-17 14:16 | disposition home or self-care (01) ==
LOC: LAB.R 14:15
DX: N39.0 Urinary tract infection, site not specified (principal)
CPT/HCPCS: 81001; 81003; 87086

== ENCOUNTER 2017-01-26 12:30 | Outpatient (CLI) | payer MEDICARE, OTHER | END 2017-01-26 12:31 | disposition home or self-care (01) | LOC: LAB.R 12:30 | DX: E11.9 Type 2 diabetes mellitus without complications (principal) | CPT/HCPCS: 87070; 87205 ==

== ENCOUNTER 2017-01-27 12:54 | Outpatient (CLI) | payer MEDICARE, OTHER | END 2017-01-27 12:55 | disposition home or self-care (01) | LOC: LAB.R 12:54 | DX: E11.9 Type 2 diabetes mellitus without complications (principal) | CPT/HCPCS: 87070; 87205 ==

== ENCOUNTER 2017-03-15 10:48 | Outpatient (CLI) | payer MEDICARE, OTHER ==
[2017-03-15 12:46] LABS: BASOPHILS # (AUTO) 0.1 10^3/uL (0.0-0.1); BASOPHILS % (AUTO) 0.8 %; EOSINOPHILS # (AUTO) 0.6 10^3/uL (0.0-0.7); EOSINOPHILS % (AUTO) 8.3 %; HGB - HEMOGLOBIN 11.5 g/dL (12.0-16.0); LYMPHOCYTES % (AUTO) 27.6 %; MEAN CORPUSCULAR HEMOGLOBIN 28.9 pg (27.0-31.0); MEAN CORPUSCULAR HGB CONC 33.9 g/dL (32.0-36.0); MEAN CORPUSCULAR VOLUME 85.2 fL (81.0-99.0); MEAN PLATELET VOLUME 8.9 fL (7.9-10.8); MONOCYTES # (AUTO) 0.6 10^3/uL (0.0-1.0); MONOCYTES % (AUTO) 7.7 %; NEUTROPHILS # (AUTO) 4.1 10^3/uL (1.5-6.6); NEUTROPHILS % (AUTO) 55.6 %; PLT - PLATELET COUNT 313 10^3/uL (130-450); RED BLOOD COUNT 3.99 10^6/uL (4.20-5.40); RED CELL DISTRIBUTION WIDTH 15.8 % (12.0-15.0); WHITE BLOOD COUNT 7.3 x10^3/uL (4.8-10.8)
[2017-03-15 13:05] LABS: ALBUMIN 3.3 g/dL (3.2-5.5); BILIRUBIN,TOTAL 0.5 mg/dL (0.2-1.0); CALCIUM 9.4 mg/dL (8.5-10.3); CREATININE 0.7 mg/dL (0.4-1.0); TOTAL PROTEIN 6.7 g/dL (6.7-8.2)
[2017-03-15 13:18] LABS: THYROID STIMULATING HORMONE 0.7 uIU/mL (0.34-5.60)
[2017-03-15 13:20] LABS: FREE T4 (FREE THYROXINE) 0.87 ng/dL (0.58-1.64)
[2017-03-15 13:24] LABS: FERRITIN 50.9 ng/mL (11.0-306.8)
[2017-03-15 13:30] LABS: HB2 TOTAL 12.3 g/dL; HEMOGLOBIN A1C 0.57 g/dL; HEMOGLOBIN A1C % 6.4 % (4.6-6.2)
== END 2017-03-15 10:49 | disposition home or self-care (01) ==
LOC: LAB.R 10:48
DX: I10 Essential (primary) hypertension (principal); E87.6 Hypokalemia; E11.9 Type 2 diabetes mellitus without complications; R60.9 Edema, unspecified
CPT/HCPCS: 80053; 82728; 83036; 84439; 84443; 85025

== ENCOUNTER 2017-06-16 13:58 | Outpatient (CLI) | payer MEDICARE, OTHER | END 2017-06-16 13:59 | disposition home or self-care (01) | LOC: DI 13:58 | PROVIDERS: ATTEND Physician Assistant Medical | DX: R60.0 Localized edema (principal); I51.7 Cardiomegaly | CPT/HCPCS: 93306 ==

== ENCOUNTER 2017-06-21 08:00 | Outpatient (CLI) | payer MEDICARE, OTHER ==
[2017-06-21 13:43] LABS: CALCIUM 9.5 mg/dL (8.5-10.3); CREATININE 0.8 mg/dL (0.4-1.0)
[2017-06-21 13:53] LABS: HEMOGLOBIN A1C 0.82 g/dL; HEMOGLOBIN A1C % 7.5 % (4.6-6.2)
== END 2017-06-21 08:01 | disposition home or self-care (01) ==
LOC: LAB.WCP 08:00
PROVIDERS: ATTEND Physician Assistant Medical
DX: E11.9 Type 2 diabetes mellitus without complications (principal)
CPT/HCPCS: 36415; 80048; 83036

== ENCOUNTER 2017-11-08 13:11 | Outpatient (CLI) | payer MEDICARE, OTHER ==
--- NOTE | 2017-11-09 02:17 | Ultrasound Report ---
Reason: VENOUS STASIS DERMATITIS Procedure Date: 11/08/2017 Accession Number: [id number] / [id number] Procedure: US - Ankle Brachial Index CPT Code: FULL RESULT: EXAM: ANKLE-BRACHIAL INDEX EXAM DATE: 11/08/2017 03:17 PM. CLINICAL HISTORY: Venous stasis dermatitis. COMPARISON: None. TECHNIQUE: Ankle-brachial index calculated. FINDINGS: Right posterior tibial pressures are 79. Right dorsalis pedis artery pressures are 72. Both vessels demonstrate monophasic waveforms. Left posterior tibial pressures are 77. Left dorsalis pedis pressures are 83. These vessels demonstrate biphasic waveforms. Right and left ankle pressures are 190 and 201 respectively. Right and left brachial pressures are 168 and 181 respectively. Right and left ankle-brachial index is 1.1. IMPRESSION: 1. Right ankle-brachial index is 1.1. 2. Left ankle-brachial index is 1.1. RADIA
== END 2017-11-08 13:12 | disposition home or self-care (01) ==
LOC: DI 13:11
PROVIDERS: ATTEND Family Medicine
DX: I83.10 Varicose veins of unspecified lower extremity with inflammation (principal)
CPT/HCPCS: 93922

== ENCOUNTER 2018-04-12 08:00 | Outpatient (CLI) | payer MEDICARE, OTHER ==
[2018-04-12 19:37] LABS: BASOPHILS % (AUTO) 0.6 %; EOSINOPHILS # (AUTO) 0.2 10^3/uL (0.0-0.7); HGB - HEMOGLOBIN 14.5 g/dL (12.0-16.0); LYMPHOCYTES # (AUTO) 2.2 10^3/uL (1.5-3.5); LYMPHOCYTES % (AUTO) 30.6 %; MEAN CORPUSCULAR HEMOGLOBIN 30.2 pg (27.0-31.0); MEAN CORPUSCULAR HGB CONC 33.2 g/dL (32.0-36.0); MEAN CORPUSCULAR VOLUME 90.9 fL (81.0-99.0); MEAN PLATELET VOLUME 8.9 fL (7.9-10.8); MONOCYTES # (AUTO) 0.5 10^3/uL (0.0-1.0); MONOCYTES % (AUTO) 6.2 %; NEUTROPHILS # (AUTO) 4.4 10^3/uL (1.5-6.6); NEUTROPHILS % (AUTO) 59.6 %; PLT - PLATELET COUNT 305 10^3/uL (130-450); RED CELL DISTRIBUTION WIDTH 14.8 % (12.0-15.0); WHITE BLOOD COUNT 7.3 x10^3/uL (4.8-10.8)
[2018-04-12 19:57] LABS: HB2 TOTAL 15.6 g/dL; HEMOGLOBIN A1C 1.07 g/dL; HEMOGLOBIN A1C % 8.4 % (4.6-6.2)
[2018-04-12 20:19] LABS: ALBUMIN/GLOBULIN RATIO 1.1 (1.0-2.2); ALKALINE PHOSPHATASE 94 IU/L (42-121); ALT ALANINE AMINOTRANSFERASE 26 IU/L (10-60); AST ASPARTATE AMINOTRANSFERASE 29 IU/L (10-42); BILIRUBIN,TOTAL 0.8 mg/dL (0.2-1.0); BUN - BLOOD UREA NITROGEN 20 mg/dL (6-20); CALCIUM 9.4 mg/dL (8.5-10.3); CARBON DIOXIDE - CO2 24 mmol/L (21-32); CHLORIDE 101 mmol/L (101-111); CHOLESTEROL 185 mg/dL; CREATININE 0.6 mg/dL (0.4-1.0); GFR - MDRD 96 (>89); GLUCOSE 153 mg/dL (70-100); HDL CHOLESTEROL 46 mg/dL; LDL CHOLESTEROL,CALCULATED 90 mg/dL; SODIUM 135 mmol/L (135-145); TOTAL PROTEIN 7.5 g/dL (6.7-8.2); VLDL CHOLESTEROL 49 mg/dL
== END 2018-04-12 23:59 | disposition home or self-care (01) ==
LOC: LAB.WCP 08:00
PROVIDERS: ATTEND Physician Assistant Medical
DX: E11.9 Type 2 diabetes mellitus without complications (principal); D64.9 Anemia, unspecified
CPT/HCPCS: 36415; 80053; 80061; 83036; 83721; 85025

== ENCOUNTER 2018-07-24 08:00 | Outpatient (CLI) | payer MEDICARE, OTHER ==
[2018-07-24 12:58] LABS: HB2 TOTAL 13.9 g/dL; HEMOGLOBIN A1C 0.8 g/dL; HEMOGLOBIN A1C % 7.4 % (4.6-6.2)
[2018-07-24 12:59] LABS: CALCIUM 9.3 mg/dL (8.5-10.3); CREATININE 0.8 mg/dL (0.4-1.0)
== END 2018-07-24 23:59 | disposition home or self-care (01) ==
LOC: LAB.WCP 08:00
PROVIDERS: ATTEND Family Medicine
DX: E11.9 Type 2 diabetes mellitus without complications (principal)
CPT/HCPCS: 36415; 80048; 82043; 82570; 83036

== ENCOUNTER 2018-07-25 10:15 | Outpatient (CLI) | payer MEDICARE, OTHER ==
[2018-07-25 18:57] LABS: CREATININE,URINE 145.7 mg/dL; MICROALBUMIN,URINE 8.6 mg/dL (0-300.0)
== END 2018-07-25 10:16 | disposition home or self-care (01) ==
LOC: LAB.WCP 10:15
PROVIDERS: ATTEND Family Medicine
DX: E11.9 Type 2 diabetes mellitus without complications (principal)
CPT/HCPCS: 82043; 82570

== ENCOUNTER 2018-11-09 08:00 | Outpatient (CLI) | payer MEDICARE, OTHER ==
[2018-11-09 18:55] LABS: CREATININE,URINE 126.2 mg/dL; MICROALBUM/CREATININE RATIO,UR 44.4 ug/mg (<30.0); MICROALBUMIN,URINE 5.6 mg/dL (0-300.0)
== END 2018-11-09 23:59 | disposition home or self-care (01) ==
LOC: LAB.R 08:00
PROVIDERS: ATTEND Family Medicine
DX: E11.9 Type 2 diabetes mellitus without complications (principal)
CPT/HCPCS: 82043; 82570

== ENCOUNTER 2018-11-16 11:33 | Outpatient (CLI) | payer MEDICARE, OTHER ==
[2018-11-16 19:10] LABS: CHOL/HDL RATIO 4.1 (<4.4); CHOLESTEROL 155 mg/dL; HDL CHOLESTEROL 38 mg/dL; LDL CHOLESTEROL,CALCULATED 77 mg/dL; VLDL CHOLESTEROL 40 mg/dL
== END 2018-11-16 11:40 | disposition home or self-care (01) ==
LOC: LAB.N 11:33
PROVIDERS: ATTEND Family Medicine
DX: E78.5 Hyperlipidemia, unspecified (principal)
CPT/HCPCS: 36415; 80061; 83721

== ENCOUNTER 2020-10-07 11:10 | Outpatient (CLI) | payer MEDICARE, OTHER | END 2020-10-07 11:11 | disposition critical access hospital (66) | LOC: EMS 11:10 | DX: R41.0 Disorientation, unspecified (principal) | CPT/HCPCS: A0425; A0429 ==

== ENCOUNTER 2020-10-07 11:40 | Inpatient (IN) | payer MEDICARE, OTHER ==
[2020-10-07] MEDS ORDERED: SODIUM CHLORIDE 0.9% 1,000 ML IV STA (12:01)
--- NOTE | 2020-10-07 12:02 | ED Physician Documentation ---
History of Present Illness - Stated complaint Stated Complaint: FOUND DOWN - Chief complaint Chief Complaint: Neuro - Additonal information Additional information: 80-year-old female is brought to the emergency department for evaluation of a ltered mental status when a friend asked for a welfare check as she had not heard from her today. The patient was found in the bathtub of her residence. Patient is able to tell me the appropriate year but is confused to the actual date in September. She does know that she was brought to the emergency department and that she had been found in the bathtub. When she describes to tell me why she was in the bathtub she is unable to give me a timeline of events. She denies chest pain or shortness of air. She is quite tangential in her conversation. She presents normotensive without tachycardia or fever. She does not have any obvious focal neuro deficits. Review of Systems Unable to obtain: AMS Constitutional: denies: Fever, Chills Eyes: reports: Reviewed and negative Nose: reports: Reviewed and negative Cardiac: reports: Reviewed and negative Respiratory: reports: Reviewed and negative GI: denies: Abdominal Pain, Nausea, Vomiting : denies: Dysuria Skin: reports: Rash (Dermatitis rash under the pannus on the abdomen. She has thick scaling lesions on both of her anterior shins.) PD PAST MEDICAL HISTORY - Past Medical History Past Medical History: Yes Cardiovascular: Hypertension, High cholesterol Respiratory: None Endocrine/Autoimmune: Type 2 diabetes GI: None : Frequency HEENT: Glaucoma, Other Psych: None Musculoskeletal: Osteoarthritis, Other Derm: Other - Past Surgical History Past Surgical History: Yes General: Cholecystectomy Ortho: Carpal Tunnel surgery HEENT: Cataracts - Present Medications Home Medications: Ambulatory Orders Medication Instructions Recorded Confirmed Aspirin [Aspir-Low] 81 mg PO DAILY 01/07/16 10/31/17 Atenolol 50 mg PO DAILY 01/07/16 10/31/17 Lisinopril 20 mg PO BID 01/07/16 10/31/17 Insulin Glargine,Hum.rec.anlog 20 unit SQ DAILY 07/15/16 10/31/17 [Lantus] Brinzolamide/Brimonidine Tart 1 drops Q4H 11/30/16 10/31/17 [Simbrinza 1%-0.2% Eye Drops] Furosemide 20 mg PO DAILY 11/30/16 10/31/17 Potassium Chloride [Micro-K] 10 meq PO 0800 11/30/16 10/31/17 Simvastatin 20 mg PO DAILY 11/30/16 10/31/17 Timolol 0.5% Ophth Drops [Timoptic 1 drops PO DAILY 11/30/16 10/31/17 0.5% Ophth Drops] Travoprost [Travatan Z] 1 drops OP QPM 11/30/16 10/31/17 amLODIPine [Norvasc] 5 mg DAILY 11/30/16 10/31/17 metFORMIN [Glucophage] 850 mg PO DAILY 11/30/16 10/31/17 Magnesium Oxide [Mag Ox] 400 mg PO DAILYWM tablet 12/08/16 10/31/17 Multivit-Min/Iron/Folic Acid/K 1 tab PO DAILY 02/07/17 10/31/17 [Multi-Day Plus Minerals Tablet] - Allergies Allergies/Adverse Reactions: Allergies Allergy/AdvReac Type Severity Reaction Status Date / Time No Known Drug Allergies Allergy Unverified 10/07/20 11:49 - Social History Does the pt smoke?: No Smoking Status: Never smoker Does the pt drink ETOH?: No Does the pt have substance abuse?: No PD ED PE EXPANDED - General General: Alert, Disheveled, poorly kept - Cardiac Cardiac: Regular Rate, Pedal strong equal, Cap refill < 2 sec. No: Murmur Present, Radial strong equal (1+ bilaterally; cap refill 4 seconds; mild mottling of BUE) - Respiratory Respiratory: Clear to ausultation renetta. No: Distress, Labored - Abdomen Abdomen: Normal Bowel sounds. No: Tender to palpation - Derm Derm: Normal color, Warm and dry, Other (thick scaling lesions on both lower extremities; dermatitis under pannus lower abdomen) - Extremities Extremities: Normal. No: Deformity, Tenderness - Neuro Neuro: Confused, CNII-XII intact, Normal speech - GCS Eye Opening: Spontaneous Motor: Obeys Commands Verbal: Confused Total: 14 Results - Vitals Vitals: Vital Signs - 24 hr 10/07/20 10/07/20 11:49 11:54 Temperature 36.5 C 36.5 C Heart Rate 90 90 Respiratory 16 16 Rate Blood Pressure 127/66 127/66 O2 Saturation 100 100 Oxygen O2 Source Room air - EKG (time done) 1158 Rate: Rate (enter#) (89) Rhythm: Other (sinus arrythmia) [place]: Normal Intervals: Normal DC QRS: Normal Ischemia: Non specific changes Compare to prior EKG: Changed from prior EKG Computer interpretation: Agree with computer - Labs Labs: Laboratory Tests 10/07/20 10/07/20 10/07/20 12:00 12:00 12:00 WBC 13.1 H RBC 5.00 Hgb 14.8 Hct 46.3 MCV 92.6 MCH 29.6 MCHC 32.0 RDW 15.5 H Plt Count 398 MPV 10.7 Neut # (Auto) 10.1 H Lymph # (Auto) 1.7 [place] # (Auto) 1.2 H Eos # (Auto) 0.1 Baso # (Auto) 0.1 Absolute Nucleated RBC 0.00 Nucleated RBC % 0.0 Sodium 143 Potassium 4.1 Chloride 104 Carbon Dioxide 26 Anion Gap 13.0 BUN 44 H Creatinine 0.9 Estimated GFR (MDRD) 60 L Glucose 157 H Lactic Acid Calcium 10.1 Total Bilirubin 1.3 H AST 49 H ALT 37 Alkaline Phosphatase 98 Total Creatine Kinase 951 H Troponin I High Sens 40.6 H* Total Protein 7.5 Albumin 3.5 Globulin 4.0 Albumin/Globulin Ratio 0.9 L Lipase 25 Urine Color Urine Clarity Urine pH Ur Specific [place] Urine Protein Urine Glucose (UA) Urine Ketones Urine Occult Blood Urine Nitrite Urine Bilirubin Urine Urobilinogen Ur Leukocyte Esterase Urine RBC Urine WBC Ur Squamous Epith Cells Amorphous Sediment Urine Bacteria Urine Mucus Ur Microscopic Review Urine Culture Comments 10/07/20 10/07/20 12:00 12:39 WBC RBC Hgb Hct MCV MCH MCHC RDW Plt Count MPV Neut # (Auto) Lymph # (Auto) [place] # (Auto) Eos # (Auto) Baso # (Auto) Absolute Nucleated RBC Nucleated RBC % Sodium Potassium Chloride Carbon Dioxide Anion Gap BUN Creatinine Estimated GFR (MDRD) Glucose Lactic Acid 2.2 Calcium Total Bilirubin AST ALT Alkaline Phosphatase Total Creatine Kinase Troponin I High Sens Total Protein Albumin Globulin Albumin/Globulin Ratio Lipase Urine Color YELLOW Urine Clarity CLEAR Urine pH 5.5 Ur Specific [place] >=1.030 H Urine Protein 30 H Urine Glucose (UA) NEGATIVE Urine Ketones 15 H Urine Occult Blood MODERATE H Urine Nitrite NEGATIVE Urine Bilirubin NEGATIVE Urine Urobilinogen 0.2 (NORMAL) Ur Leukocyte Esterase NEGATIVE Urine RBC 6-10 H Urine WBC 6-10 H Ur Squamous Epith Cells MOD Squamous H Amorphous Sediment Few Urine Bacteria Few Urine Mucus Few Strands Ur Microscopic Review INDICATED Urine Culture Comments NOT INDICATED - Rads (name of study) CXR Radiology: Final report received (no acurte cardiopulmonary abnormality) CT head Radiology: Final report received (No acute intracranial process.) PD MEDICAL DECISION MAKING - ED course Complexity details: reviewed results, re-evaluated patient, d/w patient ED course: 80-year-old female presents emergency department for evaluation of acute altered mental status. A welfare check was performed this morning and the patient was found by EMS to be laying in her bathtub. It is unclear for how long she had been laying in the bathtub which was not filled with water. However the patient presents without an understanding of why she was going to the bathtub in the first place. She does not carry a history of dementia previous to this. In spe aking with the patient's stepdaughter Ronda she also reports that the patient is typically quite fluid and well oriented. Here in the emergency department the patient is noted to have very poor hygiene of mouth perineal area and his skin. She does not have any obvious focal neuro deficits however. She is confused as to the timing of events and current place. CT of the head was unremarkable. Screening labs show moderate leukocytosis. Urine is not suggestive of infection and chest x-ray does not show any focal opacities. Screening labs otherwise show an elevated CK likely secondary to pro longed downtime in the bathtub. Her renal function is preserved though she is mildly dehydrated with an elevated BUN. EKG was nonischemic but troponin was mildly elevated at 40. Patient denies chest pain or shortness of air. A repeat troponin is pending. I did speak with the patient's stepdaughter and she does indicate the patient is a DNR. I have discussed this case with hospitalist Dr. Portillo who agrees to bring the patient in for an observation status of altered mentation. Further care and treatment to be dictated by the hospitalist which may include MRI versus hydration and reevaluation. Departure - Departure Disposition: ED Place in Observation Clinical Impression: Elevated CK, Elevated troponin Altered mental status Qualifiers: Altered mental status type: unspecified Qualified Code(s): R41.82 - Altered men noemi status, unspecified
[2020-10-07 12:05] LABS: BASOPHILS # (AUTO) 0.1 10^3/uL (0.0-0.1); BASOPHILS % (AUTO) 0.4 %; EOSINOPHILS # (AUTO) 0.1 10^3/uL (0.0-0.7); EOSINOPHILS % (AUTO) 0.7 %; HCT - HEMATOCRIT 46.3 % (37.0-47.0); HGB - HEMOGLOBIN 14.8 g/dL (12.0-16.0); LYMPHOCYTES # (AUTO) 1.7 10^3/uL (1.5-3.5); LYMPHOCYTES % (AUTO) 12.7 %; MEAN CORPUSCULAR HEMOGLOBIN 29.6 pg (27.0-31.0); MEAN CORPUSCULAR VOLUME 92.6 fL (81.0-99.0); MEAN PLATELET VOLUME 10.7 fL (7.9-10.8); MONOCYTES # (AUTO) 1.2 10^3/uL (0.0-1.0); MONOCYTES % (AUTO) 8.8 %; NEUTROPHILS # (AUTO) 10.1 10^3/uL (1.5-6.6); PLT - PLATELET COUNT 398 10^3/uL (130-450); RED CELL DISTRIBUTION WIDTH 15.5 % (12.0-15.0); WHITE BLOOD COUNT 13.1 x10^3/uL (4.8-10.8)
--- NOTE | 2020-10-07 12:15 | XRAY Report ---
PROCEDURE: Chest 1 View X-Ray INDICATIONS: Chest Pain TECHNIQUE: One view of the chest was acquired. COMPARISON: 12/05/2016. FINDINGS: Surgical changes and devices: Cholecystectomy clips.. Lungs and pleura: No pleural effusions or pneumothorax. Lungs are clear. Mediastinum: Mediastinal contours appear normal. Heart size is normal. Bones and chest wall: No suspicious bony lesions. Overlying soft tissues appear unremarkable. IMPRESSION: No acute cardiopulmonary disease process. Reviewed by: Leticia Pantoja MD, PhD on 10/07/2020 12:14 PM PDT Approved by: Leticia Pantoja MD, PhD on 10/07/2020 12:14 PM PDT Station ID: [id number]
[2020-10-07 12:21] LABS: ALBUMIN 3.5 g/dL (3.2-5.5); ALBUMIN/GLOBULIN RATIO 0.9 (1.0-2.2); BILIRUBIN,TOTAL 1.3 mg/dL (0.2-1.0); CALCIUM 10.1 mg/dL (8.5-10.3); CREATININE 0.9 mg/dL (0.4-1.0); POTASSIUM 4.1 mmol/L (3.5-5.0); TOTAL PROTEIN 7.5 g/dL (6.7-8.2)
[2020-10-07 12:54] LABS: GLUCOSE, URINE (UA) NEGATIVE (NEGATIVE); KETONES,URINE (UA) 15 mg/dL (NEGATIVE); LEUKOCYTE ESTERASE, URINE NEGATIVE (NEGATIVE); NITRITE,URINE NEGATIVE (NEGATIVE); OCCULT BLOOD,URINE MODERATE (NEGATIVE); PH,URINE 5.5 PH (5.0-7.5); PROTEIN,URINE 30 mg/dL (NEGATIVE); UROBILINOGEN,URINE 0.2 (NORMAL) E.U./dL (NORMAL)
[2020-10-07 12:58] LABS: BILIRUBIN,URINE NEGATIVE (NEGATIVE); CLARITY,URINE CLEAR (CLEAR); ICTOTEST,URINE NEGATIVE
[2020-10-07 13:02] LABS: AMORPHOUS SEDIMENT,UR Few /LPF; BACTERIA,URINE Few /HPF (None Seen); MUCUS,URINE Few Strands; SQUAMOUS EPITHELIAL CELL,UR MOD Squamous (<= Few)
--- NOTE | 2020-10-07 13:15 | CT Report ---
PROCEDURE: HEAD WO INDICATIONS: AMS; found down welfare check TECHNIQUE: Noncontrast 4.5 mm thick angled axial sections acquired from the foramen magnum to the vertex. For r adiation dose reduction, the following was used: automated exposure control, adjustment of mA and/or kV according to patient size. COMPARISON: 12/04/2016 FINDINGS: Image quality: Excellent. CSF spaces: Basal cisterns are patent. No extra-axial fluid collections. Ventricles are normal in size and shape. Brain: No midline shift. No intracranial masses or hemorrhage. Ware-white matter interface is norm al. Skull and face: Calvarium and visualized facial bones are intact, without suspicious lesions. Sinuses: Visualized sinuses and mastoids are clear. IMPRESSION: No acute intracranial abnormality or significant change from prior study. Reviewed by: Wilber Armas MD on 10/07/2020 1:13 PM PDT Approved by: Wilber Armas MD on 10/07/2020 1:13 PM PDT Station ID: [id number]
[2020-10-07] MEDS ORDERED: ONDANSETRON 4 MG/2 ML VIAL IVP PRN (14:06)
[2020-10-07] MEDS ORDERED: ONDANSETRON ODT 4 MG TABLET TL PRN (14:06)
[2020-10-07] MEDS ORDERED: oxyCODONE 5 MG TABLET PO PRN (14:06)
[2020-10-07] MEDS ORDERED: ACETAMINOPHEN 325 MG TABLET PO PRN (14:06)
--- NOTE | 2020-10-07 15:20 | HISTORY & PHYSICAL EXAMINATION ---
Chief Complaint - Chief Complaint Chief Complaint: found down at home History of Present Illness - Admitted From Admitted From:: home - History Obtained From History obtained from: patient, family Exam Limitations: patient is a poor historian - History of Present Illness HPI Comment/Other: HPI is limited due to patient being a poor historian with probable altered mental status. The patient is and lives at home alone, but stays in regular contact with her step children who live in other states. After her current caregiver Eli and former caregiver Anamaria were unable to reach the patient on the phone on Tuesday, they became concerned and called in a welfare check. The patient was subsequently discovered down inside of her (otherwise em pty) bathtub during the welfare check. She does not know why she was in the bathtub, nor how long she was there. Upon presentation to the ED, the patient appears alert but with markedly tangential, pressured speech, making it especially challenging to obtain a clear history. When asked a question, she does not provide an exact answer. Her DPOA, step-daughter Ronda, states that she has always been quite verbal but that after her she became slightly more tangential. Ronda states she has not been able to visit the patient since before the pandemic, at which time Ronda and her brother noted that the patient's home "was stinky" and they tried to clean as best they could. Since the pandemic, Ronda states the patient has become much more verbal and scattered in her speech. Ronda very appropriately describes her step-mother's speech pattern as "like you're flipping through radio stations." To her knowledge, the patient has no known psychiatric history. Ronda states that the patient is very intelligent and knows that her speech is erratic, but is typically aware of what she is saying. Indeed, while speaking to the patient she makes statements congruent with reality and current events (eg, "Is there a TV in this room? I want to watch the news; [place] isn't doing well"), but she also makes statements that are difficult to follow and may suggest she is having hallucinations (eg, "I was on a boat trip- there were squiggly bugs and they harass people like the Qlusters movie, and then it was real life and someone said they perceived them as very thick and then I was like, 'Ooooh!'"). Of note, Ronda reports that the patient is very hesitant about "being transferred to a facility." Apparently some time in 2018 she was hospitalized for being found down and was placed in a facility upon discharge and "a social services assistant took her two dogs away- the dogs were like her children; she was heartbroken." The patient has reportedly told Ronda on several occasions that she doesn't want to be in a facility and is worried "about them giving her drugs that alter her thinking and taking away her autonomy." The patient has been admitted after being found down at home for an unknown period of time with altered mental status, pressured speech, and possible self neglect. History - Past Medical History Cardiovascular: reports: Hypertension, High cholesterol Respiratory: reports: None Neuro: reports: None Endocrine/Autoimmune: reports: Type 2 diabetes GI: reports: None RADIO ELECTRONICS TECHNICIAN: reports: None : reports: Frequency HEENT: reports: Glaucoma, Other (cataracts) Psych: reports: None Musculoskeletal: reports: Osteoarthritis, Other (reported history of "a knee and foot injury;" unknown specific injury or orientation) Derm: reports: Other (patient reports BLE "skin problems") MRSA Hx?: No - Past Surgical History General: reports: Cholecystectomy Ortho: reports: Carpal Tunnel surgery HEENT: reports: Cataracts - Family & Social History Family History: Mother: (unknown history), Father: Family History Comment/Other: Per MEGHA Bond, the patient was an only child. She never had children of her own, but was a stepmother to Ronda and her siblings since they were teenagers. Ronda states the patient was "very close to her father" but health history is unknown at this time. 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 Per MEGHA, the patient is "highly intelligent" and will talk ad nauseum about a variety of subjects. - Substance History Use: Uses substance without health or social issues: NONE Abuse: Recurrent use of substance despite neg consequences: NONE Dependence: Experiences withdrawal or developed tolerances: NONE - POLST Patient has POLST: No POLST Status: DNR (MEGHA Ronda states patient is a DNR. She will call the hospital once she finds a copy of this paperwork to fax over.) Meds/Allgy - Home Medications Home Medications: Ambulatory Orders Medication Instructions Recorded Confirmed Aspirin [Aspir-Low] 81 mg PO DAILY 01/07/16 10/07/20 Atenolol 50 mg PO DAILY 01/07/16 10/07/20 Lisinopril 20 mg PO BID 01/07/16 10/07/20 Insulin Glargine,Hum.rec.anlog 45 unit SQ QPM 07/15/16 10/07/20 [Lantus] Simvastatin 20 mg PO QPM 11/30/16 10/07/20 Timolol 0.5% Ophth Drops [Timoptic 1 drops EACHEYE BID 11/30/16 10/07/20 0.5% Ophth Drops] amLODIPine [Norvasc] 5 mg DAILY 11/30/16 10/07/20 metFORMIN [Glucophage] 1,275 mg PO DAILY 11/30/16 10/07/20 Multivit-Min/Iron/Folic Acid/K 1 tab PO DAILY 02/07/17 10/07/20 [Multi-Day Plus Minerals Tablet] Brinzolamide/Brimonidine Tart 1 drops RIGHTEYE TID 10/07/20 10/07/20 [Simbrinza 1%-0.2% Eye Drops] metFORMIN [Glucophage] 850 mg PO QPM 10/07/20 10/07/20 - Allergies Allergies/Adverse Reactions: Allergies Allergy/AdvReac Type Severity Reaction Status Date / Time No Known Drug Allergies Allergy Unverified 10/07/20 11:49 Review of Systems - Constitutional Constitutional: reports: Fatigue, Weakness. denies: Fever, Chills, Malaise, Poor appetite - Eyes Eyes: reports: Irritation, Other (The patient states she "has not taken any of her medications in five days, including her eye drops". She has bilateral scleritis.) - Ears, Nose & Throat Ears, Nose & Throat: denies: Ear pain, Hearing loss, Hearing aids, Vertigo, Nasal pain, Nosebleeds - Cardiovascular Cariovascular: reports: Edema (BLE). denies: Irregular heart rate, Palpitations, Chest pain - Respiratory Respiratory: denies: Cough, Sputum production, Wheezing - Gastrointestinal Gastrointestinal: reports: Abdominal distention, Constipation (patient states she does not remember the last time she had a BM). denies: Abdominal pain - Genitourinary Genitourinary: reports: Frequency, Incontinence. denies: Dysuria, Urgency - Musculoskeletal Musculoskeletal: reports: Limited range of motion, Muscle weakness, Other (pt is WC-bound at baseline). denies: Muscle pain, Back pain - Integumentary Integumentary: reports: Lesions (BLE), Dryness - Neurological Neurological: reports: General weakness. denies: Headache, Dizziness - Psychiatric Psychiatric: reports: Hallucinations (reports possible visual and audiorty hallucinations). denies: Depression, Anxiety, Suicidal - Endocrine Endocrine: denies: Polyuria, Polydypsia, Polyphagia - Hematologic/Lymphatic Hematologic/Lymphatic: denies: Anemia, Bruising, Petechiae - All Other Systems All Other Systems: reports: Reviewed and negative Prior Level of Functionality: Patient came from home alone. She is wheelchair-bound at baseline. She gets her meals delivered 3x/week by [facility] and gets other groceries "mainly TV dinners" from [employer] delivery. Exam - Vital Signs Vital Signs: Vital Signs x48h Temp Pulse Resp BP Pulse Ox 10/07/20 13:54 74 16 126/72 100 10/07/20 11:54 36.5 C 90 16 127/66 100 10/07/20 11:49 36.5 C 90 16 127/66 100 - Physical Exam General Appearance: positive: No acute distress, Alert Eyes Bilateral: positive: Other (bilateral scleritis) ENT: positive: Other (poor oral and dental hygeine) Neck: positive: Trachea midline Respiratory: positive: Chest non-tender, No respiratory distress Cardiovascular: positive: Irregularly irregular, Systolic murmur (grade 4/6) Abdomen: positive: Nml bowel sounds, Tenderness (generalized tenderness to deep palpation), Other (full, distended abdomen) Back: positive: Other (pressure wound to sacral area (photos in nursing note)) Skin: positive: Warm, Dry, Other (Appears to have fungal wounds to abdominal folds and groin. Unable to visualize back or buttocks during exam. She has extensive scaly, flaky, dry lesions from her neck down to her feet.) Extremities: positive: Other (very limited ROM to BLE. Bilateral hands with slight contractures and sluggish cappillary refill and purple appearance.) Neurologic/Psychiatric: positive: Disoriented to place, Disoriented to time, Other (pressured, tangential speech pattern) Conclusion/Plan - Problem List (1) Altered mental status Conclusion/Plan: Patient was found down at home inside of her empty bathtub during a welfare check. She was down for an unknown period of time and does not remember why she was there nor what had happened. The patient answers some questions appropriately and demonstrates higher-level cognition (eg, when asked the date she stated "I'm not sure since I don't have a calendar, but I remember that Tuesday was the so let me count"), but is also talking about things that have not happened. She insists that she was recently on a plane and took a trip somewhere and that her car is still at [place] airport and her purse is missing- this is not true, according to people close to her. She does not have a known history of dementia. Will obtain a second UA to evaluate for infection since the first appears contaminated. CT head shows no acute intracranial abnormality. CXR unremarkable. Will order ECHO to evaluate if she may have had a cardiac-related syncopal event. Of note, she does have a significant murmur and irregular HR. Qualifiers: Altered mental status type: unspecified Qualified Code(s): R41.82 - Altered mental status, unspecified (2) Dehydration Conclusion/Plan: Patient was found down for an unknown period of time. She last spoke to someone on Tuesday of last week, at which time she "sounded normal" per her caregiver Eli. On admission she has elevated BUN and CK. She received IVFs in the ED. She has been started on a diet and may drink fluids. Will continue to trend BMP. (3) Abnormal urine findings Conclusion/Plan: Initial UA with RBCs, WBCs, casts, ketones, and proteinuria. Will need a second UA for culture via straight cath since the first was contaminated. Will not treat for UTI unless there is positive culture. (4) Constipation Conclusion/Plan: Patient's abdomen is markedly rounded, full, and taut. She had positive, though slightly hypoactive bowel sounds. She states she does not remember the last time she had a bowel movement. Will order senna, Miralax, and PRN enema. (5) Neglect of personal hygiene Conclusion/Plan: The patient is rather odiferous and appears not to have bathed for quite some time. She states that she has someone who comes to help her with her legs 3x/week, and that there is "someone else but they might have covid" and says it has been a long time since she bathed. According to MEGHA Bond, the patient has been wheelchair-bound for some time since not following up with her recommended PT rehab after experiencing a knee injury and then a foot injury after prior falls. According to the patient's current caregiver, Eli Rodriguez ([phone]), and former caregiver Anamaria Carrington ([phone]), the patient has not bathed in some time. Eli reportedly comes every Tuesday and every other Tuesday to help the patient with doctor's appointments and with cleaning her lower legs. Per Eli, the patient was recently seen by podiatry and started on Keflex after her right great toenail was removed 2/2 a fungal infection. Per Eli, the patient had a "RN-type caregiver" who used to come more regularly and help the patient with bathing and personal hygiene, but the patient did not like the RN and stopped seeing her two years ago. There is concern that the patient has not bathed since her last hospitalization, which was at the end of 2017. [address] orders for BID full bed baths with pH-balanced wipes (once per nursing shift). She has multiple skin issues that are listed in detail below. (6) Disorganized thought process Conclusion/Plan: The patient answers some questions appropriately, but exhibits tangential, pressured speech that has been accurately described by her stepdaughter Ronda (MEGHA) as "like flipping through radio stations". The patient has no known history of psychiatric disorders. Per Ronda and the patient's current and past caregivers, the patient has always been verbal and erratic, but this has worsened since the pandemic. Will order a telehealth psychiatry consult to further evaluate. (See HPI section of H&P for further details) (7) Acquired ichthyosis Conclusion/Plan: BLE acquired ichthyosis 2/2 lack of routine hygiene. She has significant BLE dry, flaky skin. Will order wound care consult. For now, she will need BID full bed baths with pH balanced wipes followed by ammonia lactate lotion on both lower legs and jaleel debridement of the ichthyosis flaking. (8) Decubitus ulcer of sacral region Conclusion/Plan: Per patient and caregiver, she has a history of a sacral decubitous ulcer "that was very close to her spine" for which she was receiving care at a SNF. Nursing staff state that the ulcer appears to have returned. Photos to be posted in nursing wound note. Wound care consult ordered. [facility] is unable to order specialty mattresses, but she may benefit from an alternating pressure air mattress in the future. (9) Raynaud's phenomenon Conclusion/Plan: The patient has significant cyanotic discoloration to both hands, including her palms and digits. She has sluggish capillary refill with mottling to her BUEs. Her hands are cool to touch but are not painful. Her hands appear somewhat contracted and she does have a positive history of carpal tunnel repair. She will need an outpatient vascular referral upon discharge to further evaluate. (10) Elevated troponin Conclusion/Plan: Troponin elevated upon admission. She denies chest pain, palpitations, or shortness of breath. Continue to trend troponin until peak. This may be 2/2 dehydration; will follow. - Lab Results Fish Bones: 10/07/20 12:00 10/07/20 12:00 - Diagnostic Imaging Results Diagnostic Imaging Results: positive: Final report reviewed Diagnostic Imaging Results Comments: Head CT and CXR reviewed - EKG Results EKG Interpreted Independently: Yes
--- NOTE | 2020-10-07 15:31 | PHARMACY PROGRESS NOTE ---
- Best Possible Medication History Admit Date and Time: 10/07/20 1406 Processed by: Pharmacy Medication History completed: Yes Patient Interview: Pt unable to participate Secondary Source(s): Physician records, Pharmacy records, Insurance records As the person ultimately responsible for medication therapy, providers are able to order a medication from an existing home medication list in [facility] via the "Reconcile Routine" prior to Confirmation of that medication by technical support technician. Such practice is discouraged except when the physician, in their clinical judgment, deems that a medical need exists for a medication without regard to previous use.
[2020-10-07 15:32] LABS: B. PARAPERTUSSIS- RESP PCR PAN NOT DETECTED; B. PERTUSSIS- RESP PCR PANEL NOT DETECTED; C. PNEUMONIAE- RESP PCR PANEL NOT DETECTED; CORONAVIRUS 229E-RESP PCR NOT DETECTED; CORONAVIRUS HKU1-RESP PCR NOT DETECTED; CORONAVIRUS NL63-RESP PCR NOT DETECTED; CORONAVIRUS OC43-RESP PCR NOT DETECTED; HUMAN METAPNEUMOVIRUS NOT DETECTED; INFLUENZA A- RESP PCR PANEL NOT DETECTED; INFLUENZA B - RESP PCR PANEL NOT DETECTED; M. PNEUMONIAE- RESP PCR PANEL NOT DETECTED; PARAINFLUENZA VIRUS 1 NOT DETECTED; PARAINFLUENZA VIRUS 2 NOT DETECTED; PARAINFLUENZA VIRUS 3 NOT DETECTED; PARAINFLUENZA VIRUS 4 NOT DETECTED; RHINOVIRUS/ENTEROVIRUS NOT DETECTED; RSV- RESP PCR PANEL NOT DETECTED; SARS-CoV-2 -RESP PCR PANEL NOT DETECTED
[2020-10-07] MEDS: SODIUM CHLORIDE 0.9% 1,000 ML IV SCH (16:57)
[2020-10-07] MEDS: SODIUM CHLORIDE FLUSH 0.9% 10 ML SYRINGE IVP SCH (17:03)
[2020-10-07] MEDS: SODIUM CHLORIDE FLUSH 0.9% 10 ML SYRINGE IVP PRN (17:03)
[2020-10-07 21:21] LABS: GLUCOSE, URINE (UA) NEGATIVE (NEGATIVE); KETONES,URINE (UA) 15 mg/dL (NEGATIVE); LEUKOCYTE ESTERASE, URINE NEGATIVE (NEGATIVE); NITRITE,URINE NEGATIVE (NEGATIVE); OCCULT BLOOD,URINE TRACE-INTA (NEGATIVE); PH,URINE 5.5 PH (5.0-7.5); PROTEIN,URINE TRACE mg/dL (NEGATIVE); UROBILINOGEN,URINE 0.2 (NORMAL) E.U./dL (NORMAL)
[2020-10-07 21:23] LABS: BILIRUBIN,URINE NEGATIVE (NEGATIVE); CLARITY,URINE CLEAR (CLEAR); ICTOTEST,URINE NEGATIVE
[2020-10-07 21:26] LABS: WBC,URINE 0-3 /HPF (0-5)
[2020-10-07 21:27] LABS: BACTERIA,URINE Rare /HPF (None Seen); RBC,URINE 0-5 /HPF (0-5); SQUAMOUS EPITHELIAL CELL,UR RARE Squamous (<= Few)
[2020-10-07] MEDS: NYSTATIN POWDER 15 GM TOP SCH (21:43)
[2020-10-08] MEDS: SODIUM CHLORIDE FLUSH 0.9% 10 ML SYRINGE IVP SCH ×3 (00:09→18:53)
[2020-10-08] MEDS: SODIUM CHLORIDE 0.9% 1,000 ML IV SCH (05:25)
[2020-10-08 06:24] LABS: BASOPHILS % (AUTO) 0.4 %; EOSINOPHILS # (AUTO) 0.1 10^3/uL (0.0-0.7); EOSINOPHILS % (AUTO) 1.1 %; HCT - HEMATOCRIT 42.2 % (37.0-47.0); HGB - HEMOGLOBIN 13.1 g/dL (12.0-16.0); LYMPHOCYTES # (AUTO) 1.7 10^3/uL (1.5-3.5); LYMPHOCYTES % (AUTO) 15.7 %; MEAN CORPUSCULAR HEMOGLOBIN 28.9 pg (27.0-31.0); MEAN PLATELET VOLUME 11.2 fL (7.9-10.8); MONOCYTES # (AUTO) 1.2 10^3/uL (0.0-1.0); MONOCYTES % (AUTO) 11.5 %; NEUTROPHILS # (AUTO) 7.6 10^3/uL (1.5-6.6); PLT - PLATELET COUNT 309 10^3/uL (130-450); RED BLOOD COUNT 4.54 10^6/uL (4.20-5.40); RED CELL DISTRIBUTION WIDTH 15.6 % (12.0-15.0); WHITE BLOOD COUNT 10.8 x10^3/uL (4.8-10.8)
[2020-10-08 07:28] LABS: CALCIUM 9.4 mg/dL (8.5-10.3); CREATININE 0.7 mg/dL (0.4-1.0); POTASSIUM 3.5 mmol/L (3.5-5.0)
[2020-10-08] MEDS: ENOXAPARIN 40 MG/0.4 ML SYRINGE SUBQ SCH (08:24)
[2020-10-08] MEDS: NYSTATIN POWDER 15 GM TOP SCH ×2 (08:24→21:42)
--- NOTE | 2020-10-08 09:34 | PROVIDER PROGRESS NOTE ---
Subjective - Prog Note Date Prog Note Date: 10/08/20 Prog Note Time: 09:33 - Subjective Pt reports feeling: Improved (Patient states she is feeling well today.) Objective - Vital Signs/Intake & Output Vital Signs: Vital Signs x48h Temp Pulse Resp BP 10/08/20 07:54 36.5 C 55 L 24 155/37 H Intake & Output: Intake & Output 10/05/20 10/06/20 10/07/20 10/08/20 23:59 23:59 23:59 23:59 Intake Total 1200 1500 Output Total 800 Balance 400 1500 - Objective General Appearance: positive: No acute distress, Alert Neck: positive: Nml inspection Respiratory: positive: Chest non-tender, No respiratory distress Cardiovascular: positive: Irregularly irregular, Systolic murmur (grade 4/6) Abdomen: positive: Tenderness, Other (full, distended. Unknown date of last bowel movement) Skin: positive: Skin rash (groin), Decubitus (sacrum stage 2, healing. Deep tissue injury to R heel), Other (fungal wounds to abdominal folds and groin) Extremities: positive: Other (limited ROM, weakness to all extremities) Neurologic/Psychiatric: positive: Oriented x3, Other (oriented but hyper-focused on delusionary reality where she lost her purse after recent airplane travel. Extremely tangential speech pattern) - Lab Results Fish Bones: 10/08/20 06:02 10/08/20 06:02 Other Labs: Lab Results x24hrs 10/08/20 10/08/20 10/08/20 Range/Units 06:02 06:02 06:02 WBC (4.8-10.8) x10^3/uL RBC (4.20-5.40) 10^6/uL Hgb (12.0-16.0) g/dL Hct (37.0-47.0) % MCV (81.0-99.0) fL MCH (27.0-31.0) pg MCHC (32.0-36.0) g/dL RDW (12.0-15.0) % Plt Count (130-450) 10^3/uL MPV (7.9-10.8) fL Neut # (Auto) (1.5-6.6) 10^3/uL Lymph # (Auto) (1.5-3.5) 10^3/uL [place] # (Auto) (0.0-1.0) 10^3/uL Eos # (Auto) (0.0-0.7) 10^3/uL Baso # (Auto) (0.0-0.1) 10^3/uL Absolute Nucleated RBC x10^3/uL Nucleated RBC % /100WBC Sodium (135-145) mmol/L Potassium (3.5-5.0) mmol/L Chloride (101-111) mmol/L Carbon Dioxide (21-32) mmol/L Anion Gap (6-13) BUN (6-20) mg/dL Creatinine (0.4-1.0) mg/dL Estimated GFR (MDRD) (>89) Glucose (70-100) mg/dL Lactic Acid (0.5-2.2) mmol/L Calcium (8.5-10.3) mg/dL Total Bilirubin (0.2-1.0) mg/dL AST (10-42) IU/L ALT (10-60) IU/L Alkaline Phosphatase (42-121) IU/L Total Creatine Kinase 858 H (22-269) IU/L Troponin I High Sens 99.7 H* (2.3-14.8) ng/L Total Protein (6.7-8.2) g/dL Albumin (3.2-5.5) g/dL Globulin (2.1-4.2) g/dL Albumin/Globulin Ratio (1.0-2.2) Lipase (22-51) U/L TSH 1.74 (0.34-5.60) uIU/mL Urine Color Urine Clarity (CLEAR) Urine pH (5.0-7.5) PH Ur Specific [place] (1.002-1.030) Urine Protein (NEGATIVE) mg/dL Urine Glucose (UA) (NEGATIVE) mg/dL Urine Ketones (NEGATIVE) mg/dL Urine Occult Blood (NEGATIVE) Urine Nitrite (NEGATIVE) Urine Bilirubin (NEGATIVE) Urine Urobilinogen (NORMAL) E.U./dL Ur Leukocyte Esterase (NEGATIVE) Urine RBC (0-5) /HPF Urine WBC (0-5) /HPF Ur Squamous Epith Cells (<= Few) Amorphous Sediment /LPF Urine Bacteria (None Seen) /HPF Urine Mucus Ur Microscopic Review Urine Culture Comments Nasal Adenovirus (PCR) Nasal B. parapertussis DNA (PCR) Nasal Coronavir 229E PCR Nasal Coronavir HKU1 PCR Nasal Coronavir NL63 PCR Nasal Coronavir OC43 PCR Nasal Enterovir/Rhinovir PCR Nasal Influenza B PCR Nasal Influenza A PCR Nasal Parainfluen 1 PCR Nasal Parainfluen 2 PCR Nasal Parainfluen 3 PCR Nasal Parainfluen 4 PCR Nasal RSV (PCR) Nasal B.pertussis DNA PCR Nasal C.pneumoniae (PCR) [place] Human Metapneumo PCR Nasal M.pneumoniae (PCR) Nasal SARS-CoV-2 (PCR) 10/08/20 10/08/20 10/07/20 Range/Units 06:02 06:02 20:50 WBC 10.8 (4.8-10.8) x10^3/uL RBC 4.54 (4.20-5.40) 10^6/uL Hgb 13.1 (12.0-16.0) g/dL Hct 42.2 (37.0-47.0) % MCV 93.0 (81.0-99.0) fL MCH 28.9 (27.0-31.0) pg MCHC 31.0 L (32.0-36.0) g/dL RDW 15.6 H (12.0-15.0) % Plt Count 309 (130-450) 10^3/uL MPV 11.2 H (7.9-10.8) fL Neut # (Auto) 7.6 H (1.5-6.6) 10^3/uL Lymph # (Auto) 1.7 (1.5-3.5) 10^3/uL [place] # (Auto) 1.2 H (0.0-1.0) 10^3/uL Eos # (Auto) 0.1 (0.0-0.7) 10^3/uL Baso # (Auto) 0.0 (0.0-0.1) 10^3/uL Absolute Nucleated RBC 0.00 x10^3/uL Nucleated RBC % 0.0 /100WBC Sodium 144 (135-145) mmol/L Potassium 3.5 (3.5-5.0) mmol/L Chloride 109 (101-111) mmol/L Carbon Dioxide 23 (21-32) mmol/L Anion Gap 12.0 (6-13) BUN 39 H (6-20) mg/dL Creatinine 0.7 (0.4-1.0) mg/dL Estimated GFR (MDRD) 80 L (>89) Glucose 121 H (70-100) mg/dL Lactic Acid (0.5-2.2) mmol/L Calcium 9.4 (8.5-10.3) mg/dL Total Bilirubin (0.2-1.0) mg/dL AST (10-42) IU/L ALT (10-60) IU/L Alkaline Phosphatase (42-121) IU/L Total Creatine Kinase (22-269) IU/L Troponin I High Sens (2.3-14.8) ng/L Total Protein (6.7-8.2) g/dL Albumin (3.2-5.5) g/dL Globulin (2.1-4.2) g/dL Albumin/Globulin Ratio (1.0-2.2) Lipase (22-51) U/L TSH (0.34-5.60) uIU/mL Urine Color DARK YELLOW Urine Clarity CLEAR (CLEAR) Urine pH 5.5 (5.0-7.5) PH Ur Specific [place] 1.025 (1.002-1.030) Urine Protein TRACE (NEGATIVE) mg/dL Urine Glucose (UA) NEGATIVE (NEGATIVE) mg/dL Urine Ketones 15 H (NEGATIVE) mg/dL Urine Occult Blood TRACE-INTA (NEGATIVE) Urine Nitrite NEGATIVE (NEGATIVE) Urine Bilirubin NEGATIVE (NEGATIVE) Urine Urobilinogen 0.2 (NORMAL) (NORMAL) E.U./dL Ur Leukocyte Esterase NEGATIVE (NEGATIVE) Urine RBC 0-5 (0-5) /HPF Urine WBC 0-3 (0-5) /HPF Ur Squamous Epith Cells RARE Squamous (<= Few) Amorphous Sediment /LPF Urine Bacteria Rare (None Seen) /HPF Urine Mucus Ur Microscopic Review Urine Culture Comments NOT INDICATED Nasal Adenovirus (PCR) Nasal B. parapertussis DNA (PCR) Nasal Coronavir 229E PCR Nasal Coronavir HKU1 PCR Nasal Coronavir NL63 PCR Nasal Coronavir OC43 PCR Nasal Enterovir/Rhinovir PCR Nasal Influenza B PCR Nasal Influenza A PCR Nasal Parainfluen 1 PCR Nasal Parainfluen 2 PCR Nasal Parainfluen 3 PCR Nasal Parainfluen 4 PCR Nasal RSV (PCR) Nasal B.pertussis DNA PCR Nasal C.pneumoniae (PCR) [place] Human Metapneumo PCR Nasal M.pneumoniae (PCR) Nasal SARS-CoV-2 (PCR) 10/07/20 10/07/20 10/07/20 Range/Units 14:13 13:54 12:39 WBC (4.8-10.8) x10^3/uL RBC (4.20-5.40) 10^6/uL Hgb (12.0-16.0) g/dL Hct (37.0-47.0) % MCV (81.0-99.0) fL MCH (27.0-31.0) pg MCHC (32.0-36.0) g/dL RDW (12.0-15.0) % Plt Count (130-450) 10^3/uL MPV (7.9-10.8) fL Neut # (Auto) (1.5-6.6) 10^3/uL Lymph # (Auto) (1.5-3.5) 10^3/uL [place] # (Auto) (0.0-1.0) 10^3/uL Eos # (Auto) (0.0-0.7) 10^3/uL Baso # (Auto) (0.0-0.1) 10^3/uL Absolute Nucleated RBC x10^3/uL Nucleated RBC % /100WBC Sodium (135-145) mmol/L Potassium (3.5-5.0) mmol/L Chloride (101-111) mmol/L Carbon Dioxide (21-32) mmol/L Anion Gap (6-13) BUN (6-20) mg/dL Creatinine (0.4-1.0) mg/dL Estimated GFR (MDRD) (>89) Glucose (70-100) mg/dL Lactic Acid (0.5-2.2) mmol/L Calcium (8.5-10.3) mg/dL Total Bilirubin (0.2-1.0) mg/dL AST (10-42) IU/L ALT (10-60) IU/L Alkaline Phosphatase (42-121) IU/L Total Creatine Kinase (22-269) IU/L Troponin I High Sens 41.8 H* (2.3-14.8) ng/L Total Protein (6.7-8.2) g/dL Albumin (3.2-5.5) g/dL Globulin (2.1-4.2) g/dL Albumin/Globulin Ratio (1.0-2.2) Lipase (22-51) U/L TSH (0.34-5.60) uIU/mL Urine Color YELLOW Urine Clarity CLEAR (CLEAR) Urine pH 5.5 (5.0-7.5) PH Ur Specific [place] >=1.030 H (1.002-1.030) Urine Protein 30 H (NEGATIVE) mg/dL Urine Glucose (UA) NEGATIVE (NEGATIVE) mg/dL Urine Ketones 15 H (NEGATIVE) mg/dL Urine Occult Blood MODERATE H (NEGATIVE) Urine Nitrite NEGATIVE (NEGATIVE) Urine Bilirubin NEGATIVE (NEGATIVE) Urine Urobilinogen 0.2 (NORMAL) (NORMAL) E.U./dL Ur Leukocyte Esterase NEGATIVE (NEGATIVE) Urine RBC 6-10 H (0-5) /HPF Urine WBC 6-10 H (0-5) /HPF Ur Squamous Epith Cells MOD Squamous H (<= Few) Amorphous Sediment Few /LPF Urine Bacteria Few (None Seen) /HPF Urine Mucus Few Strands Ur Microscopic Review INDICATED Urine Culture Comments NOT INDICATED Nasal Adenovirus (PCR) NOT DETECTED Nasal B. parapertussis DNA (PCR) NOT DETECTED Nasal Coronavir 229E PCR NOT DETECTED Nasal Coronavir HKU1 PCR NOT DETECTED Nasal Coronavir NL63 PCR NOT DETECTED Nasal Coronavir OC43 PCR NOT DETECTED Nasal Enterovir/Rhinovir PCR NOT DETECTED Nasal Influenza B PCR NOT DETECTED Nasal Influenza A PCR NOT DETECTED Nasal Parainfluen 1 PCR NOT DETECTED Nasal Parainfluen 2 PCR NOT DETECTED Nasal Parainfluen 3 PCR NOT DETECTED Nasal Parainfluen 4 PCR NOT DETECTED Nasal RSV (PCR) NOT DETECTED Nasal B.pertussis DNA PCR NOT DETECTED Nasal C.pneumoniae (PCR) NOT DETECTED [place] Human Metapneumo PCR NOT DETECTED Nasal M.pneumoniae (PCR) NOT DETECTED Nasal SARS-CoV-2 (PCR) NOT DETECTED 10/07/20 10/07/20 10/07/20 Range/Units 12:00 12:00 12:00 WBC (4.8-10.8) x10^3/uL RBC (4.20-5.40) 10^6/uL Hgb (12.0-16.0) g/dL Hct (37.0-47.0) % MCV (81.0-99.0) fL MCH (27.0-31.0) pg MCHC (32.0-36.0) g/dL RDW (12.0-15.0) % Plt Count (130-450) 10^3/uL MPV (7.9-10.8) fL Neut # (Auto) (1.5-6.6) 10^3/uL Lymph # (Auto) (1.5-3.5) 10^3/uL [place] # (Auto) (0.0-1.0) 10^3/uL Eos # (Auto) (0.0-0.7) 10^3/uL Baso # (Auto) (0.0-0.1) 10^3/uL Absolute Nucleated RBC x10^3/uL Nucleated RBC % /100WBC Sodium 143 (135-145) mmol/L Potassium 4.1 (3.5-5.0) mmol/L Chloride 104 (101-111) mmol/L Carbon Dioxide 26 (21-32) mmol/L Anion Gap 13.0 (6-13) BUN 44 H (6-20) mg/dL Creatinine 0.9 (0.4-1.0) mg/dL Estimated GFR (MDRD) 60 L (>89) Glucose 157 H (70-100) mg/dL Lactic Acid 2.2 (0.5-2.2) mmol/L Calcium 10.1 (8.5-10.3) mg/dL Total Bilirubin 1.3 H (0.2-1.0) mg/dL AST 49 H (10-42) IU/L ALT 37 (10-60) IU/L Alkaline Phosphatase 98 (42-121) IU/L Total Creatine Kinase 951 H (22-269) IU/L Troponin I High Sens 40.6 H* (2.3-14.8) ng/L Total Protein 7.5 (6.7-8.2) g/dL Albumin 3.5 (3.2-5.5) g/dL Globulin 4.0 (2.1-4.2) g/dL Albumin/Globulin Ratio 0.9 L (1.0-2.2) Lipase 25 (22-51) U/L TSH (0.34-5.60) uIU/mL Urine Color Urine Clarity (CLEAR) Urine pH (5.0-7.5) PH Ur Specific [place] (1.002-1.030) Urine Protein (NEGATIVE) mg/dL Urine Glucose (UA) (NEGATIVE) mg/dL Urine Ketones (NEGATIVE) mg/dL Urine Occult Blood (NEGATIVE) Urine Nitrite (NEGATIVE) Urine Bilirubin (NEGATIVE) Urine Urobilinogen (NORMAL) E.U./dL Ur Leukocyte Esterase (NEGATIVE) Urine RBC (0-5) /HPF Urine WBC (0-5) /HPF Ur Squamous Epith Cells (<= Few) Amorphous Sediment /LPF Urine Bacteria (None Seen) /HPF Urine Mucus Ur Microscopic Review Urine Culture Comments Nasal Adenovirus (PCR) Nasal B. parapertussis DNA (PCR) Nasal Coronavir 229E PCR Nasal Coronavir HKU1 PCR Nasal Coronavir NL63 PCR Nasal Coronavir OC43 PCR Nasal Enterovir/Rhinovir PCR Nasal Influenza B PCR Nasal Influenza A PCR Nasal Parainfluen 1 PCR Nasal Parainfluen 2 PCR Nasal Parainfluen 3 PCR Nasal Parainfluen 4 PCR Nasal RSV (PCR) Nasal B.pertussis DNA PCR Nasal C.pneumoniae (PCR) [place] Human Metapneumo PCR Nasal M.pneumoniae (PCR) Nasal SARS-CoV-2 (PCR) 10/07/20 Range/Units 12:00 WBC 13.1 H (4.8-10.8) x10^3/uL RBC 5.00 (4.20-5.40) 10^6/uL Hgb 14.8 (12.0-16.0) g/dL Hct 46.3 (37.0-47.0) % MCV 92.6 (81.0-99.0) fL MCH 29.6 (27.0-31.0) pg MCHC 32.0 (32.0-36.0) g/dL RDW 15.5 H (12.0-15.0) % Plt Count 398 (130-450) 10^3/uL MPV 10.7 (7.9-10.8) fL Neut # (Auto) 10.1 H (1.5-6.6) 10^3/uL Lymph # (Auto) 1.7 (1.5-3.5) 10^3/uL [place] # (Auto) 1.2 H (0.0-1.0) 10^3/uL Eos # (Auto) 0.1 (0.0-0.7) 10^3/uL Baso # (Auto) 0.1 (0.0-0.1) 10^3/uL Absolute Nucleated RBC 0.00 x10^3/uL Nucleated RBC % 0.0 /100WBC Sodium (135-145) mmol/L Potassium (3.5-5.0) mmol/L Chloride (101-111) mmol/L Carbon Dioxide (21-32) mmol/L Anion Gap (6-13) BUN (6-20) mg/dL Creatinine (0.4-1.0) mg/dL Estimated GFR (MDRD) (>89) Glucose (70-100) mg/dL Lactic Acid (0.5-2.2) mmol/L Calcium (8.5-10.3) mg/dL Total Bilirubin (0.2-1.0) mg/dL AST (10-42) IU/L ALT (10-60) IU/L Alkaline Phosphatase (42-121) IU/L Total Creatine Kinase (22-269) IU/L Troponin I High Sens (2.3-14.8) ng/L Total Protein (6.7-8.2) g/dL Albumin (3.2-5.5) g/dL Globulin (2.1-4.2) g/dL Albumin/Globulin Ratio (1.0-2.2) Lipase (22-51) U/L TSH (0.34-5.60) uIU/mL Urine Color Urine Clarity (CLEAR) Urine pH (5.0-7.5) PH Ur Specific [place] (1.002-1.030) Urine Protein (NEGATIVE) mg/dL Urine Glucose (UA) (NEGATIVE) mg/dL Urine Ketones (NEGATIVE) mg/dL Urine Occult Blood (NEGATIVE) Urine Nitrite (NEGATIVE) Urine Bilirubin (NEGATIVE) Urine Urobilinogen (NORMAL) E.U./dL Ur Leukocyte Esterase (NEGATIVE) Urine RBC (0-5) /HPF Urine WBC (0-5) /HPF Ur Squamous Epith Cells (<= Few) Amorphous Sediment /LPF Urine Bacteria (None Seen) /HPF Urine Mucus Ur Microscopic Review Urine Culture Comments Nasal Adenovirus (PCR) Nasal B. parapertussis DNA (PCR) Nasal Coronavir 229E PCR Nasal Coronavir HKU1 PCR Nasal Coronavir NL63 PCR Nasal Coronavir OC43 PCR Nasal Enterovir/Rhinovir PCR Nasal Influenza B PCR Nasal Influenza A PCR Nasal Parainfluen 1 PCR Nasal Parainfluen 2 PCR Nasal Parainfluen 3 PCR Nasal Parainfluen 4 PCR Nasal RSV (PCR) Nasal B.pertussis DNA PCR Nasal C.pneumoniae (PCR) [place] Human Metapneumo PCR Nasal M.pneumoniae (PCR) Nasal SARS-CoV-2 (PCR) Assessment/Plan - Problem List (1) Altered mental status Impression: Patient was found down at home inside of her empty bathtub during a welfare chec k. She was down for an unknown period of time and does not remember why she was there nor what had happened. The patient answers some questions appropriately and demonstrates higher-level cognition (eg, when asked the date she stated "I'm not sure since I don't have a calendar, but I remember that Tuesday was the so let me count"), but is also talking about things that have not happened. She insists that she was recently on a plane and took a trip somewhere and that her car is still at [place] and her purse is missing- this is not true, according to people close to her. She does not have a known history of dementia. Second UA does not indicate concern for UTI. CT head shows no acute intracranial abnormality. CXR unremarkable. Awaiting ECHO to evaluate if she may have had a cardiac-related syncopal event. Of note, she does have a significant murmur and irregular HR. Tele-psych consult ordered. While patient answers orientation questions relatively well, she remains hyper- focused on a fictional scenario where she has lost her purse after recent travel. She has not traveled recently according to caregiver and those close to her. Caregiver confirms that she is confused after speaking with her on the phone yesterday. Qualifiers: Altered mental status type: unspecified Qualified Code(s): R41.82 - Altered mental status, unspecified (2) Dehydration Conclusion/Plan: Patient was found down for an unknown period of time. On admission she has elevated BUN and CK, which are slightly improved today. She is receiving IVFs. She has been started on a diet and may drink fluids. Will continue to trend BMP. (3) Abnormal urine findings Conclusion/Plan: Initial UA with RBCs, WBCs, casts, ketones, and proteinuria. Second UA does not indicate infection and does not have significant abnormal findings. Consider resolved. (4) Constipation Conclusion/Plan: Patient's abdomen is markedly rounded, full, and taut. She had positive, though slightly hypoactive bowel sounds. She states she does not remember the last time she had a bowel movement. Will order senna, Miralax, and PRN enema. Will consider ordering CT abdomen to further evaluate. (5) Neglect of personal hygiene Conclusion/Plan: The patient was rather odiferous upon admission and appears not to have bathed for quite some time. She states that she has someone who comes to help her with her legs 3x/week, and that there is "someone else but they might have covid" and says it has been a long time since she bathed. According to MEGHA Bond, the patient has been wheelchair-bound for some time since not following up with her recommended PT rehab after experiencing a knee injury and then a foot injury after prior falls. According to the patient's current caregiver, Eli Rodriguez ([phone]), and former caregiver Anamaria Carrington ([phone]), the patient has not bathed in months, if not years. Eli reportedly comes every Tuesday and every other Tuesday to help the patient with doctor's appointments and with cleaning her lower legs, though she is not a nurse and does not have formal wound care training. Per Eli, the patient was recently seen by podiatry and started on Keflex after her right great toenail was removed 2/2 a fungal infection. Per Eli, the patient had a "RN-type caregiver" who used to come more regularly and help the patient with bathing and personal hygiene, but the patient did not like the RN and stopped seeing her two years ago. There is concern that the patient has not bathed since her last hospitalization, which was at the end of 2018. [address] orders for BID full bed baths with pH-balanced wipes (once per nursing shift). She has multiple skin issues that are listed in detail below. (6) Disorganized thought process Conclusion/Plan: The patient answers some questions appropriately, but exhibits tangential, pressured speech that has been accurately described by her stepdaughter Ronda (MEGHA) as "like flipping through radio stations". The patient has no known history of psychiatric disorders. Per Ronda and the patient's current and past caregivers, the patient has always been verbal and erratic, but this has worsened since the pandemic. Will order a telehealth psychiatry consult to further evaluate. (See HPI section of H&P for further details) (7) Acquired ichthyosis Conclusion/Plan: BLE acquired ichthyosis 2/2 lack of routine hygiene. She has significant BLE dry, flaky skin. Her ichthyosis is remarkably improved today after nursing staff did a wonderful job cleansing and attending to gentle debridement of her excess epithelial deposits that were distributed above healthy epithelial tissue. Continue with BID bed baths and application of ammonia lactate lotion to BLE and gentle debridement as needed. (8) Decubitus ulcer of sacral region Conclusion/Plan: She has a history of a sacral decubitous ulcer for which she was receiving care at a SNF some time ago. Photos have been posted in nursing note and show what appears to be a pale/pink healing pressure ulcer which was likely aggravated while she was down in the bathtub. Nursing also included a photo of a deep tissue injury that appears new to her right heel. Continue to alternate turning to q2hrs and to float heels at all times. She may benefit from a specialized heel protector- will discuss availability with nursing staff. Wound care consult ordered. [facility] is unable to order specialty mattresses, but she may benefit from an alternating pressure air mattress in the future. (9) Raynaud's phenomenon Conclusion/Plan: The patient has significant cyanotic discoloration to both hands, including her palms and digits. She has sluggish capillary refill with mottling to her BUEs. Her hands are cool to touch but are not painful. Her hands appear somewhat contracted and she does have a positive history of carpal tunnel repair. She will need an outpatient vascular referral upon discharge to further evaluate. (10) Elevated troponin Conclusion/Plan: Troponin elevated upon admission, remains elevated this morning and up-trending. She denies chest pain, palpitations, or shortness of breath. Continue to trend troponin until peak. This may be 2/2 dehydration; will follow. Qualifiers: Altered mental status type: unspecified Qualified Code(s): R41.82 - Altered mental status, unspecified
[2020-10-08] MEDS: ASPIRIN EC 81 MG TABLET PO SCH (11:28)
[2020-10-08] MEDS: TIMOLOL 0.5% OPHTH DROPS EACHEYE SCH ×2 (11:30→21:42)
[2020-10-08] MEDS: polyethylene glycoL 3350 17 GM PACKET PO SCH (11:30)
[2020-10-08] MEDS: DOCUSATE SODIUM 250 MG CAPSULE PO SCH (11:31)
[2020-10-08] MEDS: BRIMONIDINE TART RIGHTEYE SCH ×2 (14:35→21:44)
[2020-10-08] MEDS: BRINZOLAMIDE RIGHTEYE SCH ×2 (14:35→21:44)
[2020-10-08] MEDS ORDERED: IOPAMIDOL-300 100 ML VIAL ONE ×2 (14:42→15:48)
[2020-10-08] MEDS ORDERED: IOVERSOL 320 50 ML VIAL ONE (14:44)
--- NOTE | 2020-10-08 15:02 | CONSULTATION NOTE ---
Referring Provider Consult Date: 10/08/20 History of Present Illness - History Obtained From Records Reviewed: yes History obtained from: patient Exam Limitations: none - History of Present Illness HPI Comment/Other: Admitted for altered mental status. Consult for skin sacrum and eschar right heal. History - Past Medical History Cardiovascular: reports: Hypertension, High cholesterol Respiratory: reports: None Neuro: reports: None Endocrine/Autoimmune: reports: Type 2 diabetes GI: reports: None MANAGER SOLUTION: reports: None : reports: Frequency HEENT: reports: Glaucoma, Other (cataracts) Psych: reports: None Musculoskeletal: reports: Osteoarthritis, Other (reported history of "a knee and foot injury;" unknown specific injury or orientation) Derm: reports: Other (patient reports BLE "skin problems") MRSA Hx?: No Other Past Medical History: carpal tunnel right hand. States she no longer has glaucoma. - Past Surgical History General: reports: Cholecystectomy Ortho: reports: Carpal Tunnel surgery HEENT: reports: Cataracts - Family & Social History Family History: Mother: (unknown history), Father: Family History Comment/Other: Per MEGHA Bond, the patient was an only child. She never had children of her own, but was a stepmother to Ronda and her siblings since they were teenagers. Ronda states the patient was "very close to her father" but health history is unknown at this time. 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 Per MEGHA, the patient is "highly intelligent" and will talk ad nauseum about a variety of subjects. - Substance History Use: Uses substance without health or social issues: NONE Abuse: Recurrent use of substance despite neg consequences: NONE Dependence: Experiences withdrawal or developed tolerances: NONE - POLST Patient has POLST: No POLST Status: DNR (MEGHA Ronda states patient is a DNR. She will call the hospital once she finds a copy of this paperwork to fax over.) Meds/Allgy - Home Medications Home Medications: Ambulatory Orders Medication Instructions Recorded Confirmed Aspirin [Aspir-Low] 81 mg PO DAILY 01/07/16 10/07/20 Atenolol 50 mg PO DAILY 01/07/16 10/07/20 Lisinopril 20 mg PO BID 01/07/16 10/07/20 Insulin Glargine,Hum.rec.anlog 45 unit SQ QPM 07/15/16 10/07/20 [Lantus] Simvastatin 20 mg PO QPM 11/30/16 10/07/20 Timolol 0.5% Ophth Drops [Timoptic 1 drops EACHEYE BID 11/30/16 10/07/20 0.5% Ophth Drops] amLODIPine [Norvasc] 5 mg DAILY 11/30/16 10/07/20 metFORMIN [Glucophage] 1,275 mg PO DAILY 11/30/16 10/07/20 Multivit-Min/Iron/Folic Acid/K 1 tab PO DAILY 02/07/17 10/07/20 [Multi-Day Plus Minerals Tablet] Brinzolamide/Brimonidine Tart 1 drops RIGHTEYE TID 10/07/20 10/07/20 [Simbrinza 1%-0.2% Eye Drops] metFORMIN [Glucophage] 850 mg PO QPM 10/07/20 10/07/20 - Allergies Allergies/Adverse Reactions: Allergies Allergy/AdvReac Type Severity Reaction Status Date / Time No Known Drug Allergies Allergy Unverified 10/07/20 11:49 Exam - Vital Signs Reviewed Vital Signs: Yes Vital Signs: Vital Signs x48h Temp Pulse Resp BP Pulse Ox 10/08/20 11:16 88 23 124/44 L 99 10/08/20 07:54 36.5 C 55 L 24 155/37 H - Physical Exam General Appearance: positive: No acute distress, Alert Eyes Bilateral: positive: PERRL, EOMI, No scleral icterus ENT: positive: No signs of dehydration Neck: positive: No JVD, Trachea midline Respiratory: positive: No respiratory distress Abdomen: positive: Non-tender, No distention Back: positive: Other (appearance of past sacral ulcer which may have been nearly 6 cm. healed without cellulitis. superfical sloughing of epidermis present) Skin: positive: Other (she was seen earlier this am and this afternoon. fingers were cold and ischemic this am. room is warmer this afternoon and fingers appear improved) Extremities: positive: Other (3 cm right heal eschar without surrounding cellulitis or signifiant fluctuance) Conclusion/Plan - Diagnosis Diagnosis: eschar heal and superficial sloughing skin sacrum. - Plan Plan: agree with current care. will follow. If she develops right foot cellulitis or if heal eschar becomes fluctuant plan excision heal eschar - Lab Results Fish Bones: 10/08/20 06:02 10/08/20 06:02
[2020-10-08] MEDS: atenoloL 25 MG TABLET PO SCH (15:37)
[2020-10-08] MEDS: amLODIPine 5 MG TABLET PO SCH (15:37)
[2020-10-08] MEDS: lisinopriL 20 MG TABLET PO SCH ×2 (15:37→21:41)
--- NOTE | 2020-10-08 16:39 | CT Report ---
PROCEDURE: Abdomen/Pelvis W INDICATIONS: abd pain CONTRAST: IV CONTRAST: Isovue 300 ml: 100 PO CONTRAST: Optiray 320 ml50 TECHNIQUE: After the administration of oral and IV contrast, 5 mm thick sections acquired from the diaphragms to the symphysis. 5 mm thick coronal and sagittal reformats were acquired. For radiation dose reducti on, the following was used: automated exposure control, adjustment of mA and/or kV according to barry ent size. COMPARISON: None. FINDINGS: Image quality: Excellent. ABDOMEN: Lung bases: Mild dependent atelectasis can be seen at the lung bases. No large pleural effusions can be seen. A small hiatal hernia is incidentally noted. Heart size is normal. Solid organs: Liver and spleen are normal in size and enhancement. Diffuse fatty liver infiltration can be seen. Gallbladder has been removed. Biliary system is non dilated. Pancreas enhances norm ally. No adrenal nodules. Kidneys demonstrate normal size and enhancement, without hydronephrosis. Along the posterior aspect of the left kidney, there is a 6 mm water density cyst seen. On the right, several nonenhancing water density cysts are seen, with the largest seen laterally measuring up to 12 mm. Peritoneum and bowel: There is a moderate amount of stool seen within the colon. Within the distal de scending colon, there is a focal area of apparent narrowing and wall thickening, as on series 6 image 21. No dilated loops of small bowel are seen. No free air or significant free fluid can be seen. A n ormal appendix is incidentally noted. Nodes and vessels: No retroperitoneal or mesenteric adenopathy by size criteria. Aorta and inferior vena cava are normal in size. Miscellaneous: No ventral hernias. PELVIS: Genitourinary: A Alas catheter seen, which decompresses the bladder. There is a calcified fibroid seen on the left. Miscellaneous: No inguinal hernias or adenopathy. Bones: No suspicious bony lesions. No vertebral body compression fractures. Mild levoconvex scolio tic curvature is seen. Age-appropriate degenerative changes are seen, which are worst involving the lumbar spine. IMPRESSION: There is a moderate amount of stool seen within the colon. Please correlate with clinica l constipation. There is an area of apparent wall thickening and narrowing involving the distal descending colon. Dif ferential diagnosis includes a long segment stricture, neoplasm, and artifact from peristalsis. When clinically appropriate, please consider a dedicated colonoscopy for further evaluation. Incidental note is made of: Small hiatal hernia Fatty liver infiltration Cholecystectomy Simple appearing bilateral renal cysts Normal appendix Calcified fibroid on the left Alas catheter Reviewed by: Rich Matt MD on 10/08/2020 3:38 PM AKTYLER Approved by: Rich Matt MD on 10/08/2020 3:38 PM AKTYLER Station ID: [id number]
[2020-10-08] MEDS ORDERED: IOPAMIDOL-300 100 ML VIAL IVP ONE (16:50)
[2020-10-08] MEDS ORDERED: IOVERSOL 320 50 ML VIAL PO ONE (16:50)
[2020-10-08] MEDS ORDERED: BISACODYL 10 MG SUPP PR PRN (17:47)
[2020-10-09] MEDS: SODIUM CHLORIDE FLUSH 0.9% 10 ML SYRINGE IVP SCH ×4 (00:20→23:45)
--- NOTE | 2020-10-09 01:43 | TELEPSYCH PHYS NOTE ---
Telepsych Note - CHIEF COMPLAINT/HX OF PRESENT ILLNESS Chief Complaint and History of Present Illness: Name: Vero Payan :38 Date: 10/08/20 Time:3;20am Location of patient:[place] Location of doctor:[place] Length of consult:1hr This evaluation was conducted via video telepsychiatry with the assistance of onsite staff Reason for consult: Pt came in with mental confusion Requested by: Ludin Cleaning History of Present Illness:. PT is a 80y/o wwf with no known prior mental health issues who was brought in after being found down Pt says she does not completely recall what happened but that someone had called to check on her and when she didnt answer, sent help. PT said she does not recall if she had any issues with her mood. She believes her sleep and appetite were fine and energy was normal. She denied h/o trauma or abuse I was wrapped in cotton. She denied s/o roselia or perceptual disturbances. She denied routine use of illicit drugs or alcohol. She said she tried marijuana and she would drink a rum and coke, sometimes 2 once in a while. She lost her in 2006. Collateral contacted NA Sleep issues: good I - SI/HI/SELF HARM SI/HI/Self Harm Text (Current or History of):: Psychiatric History/Treatment History: Past diagnoses: none Hospitalizations: none Current Treatment: none Suicide Assessment: PSS-3: 1) Over the past 2 weeks have you felt down, depressed or hopeless? denied 2) Over the past 2 weeks have you had thoughts of killing yourself? denied 3) Have you ever in your life attempted to kill yourself? denied If yes, then when? Within the past 6 months denied PSS-3 Secondary Screen If #2 is yes or #3 is yes within the past 6 months, then complete secondary screen: 1) Positive on PSS-3 questions 2 & 3 active SI with a past attempt? denied 2) Have you been thinking about how you might kill yourself? denied 3) Have you had some intention of acting on your thoughts? denied 4) Lifetime psychiatric hospitalization? denied 5) Has drinking or substance abuse ever been a problem for you? denied 6) Current irritability, agitation, or aggression? no PSS-3 Secondary Screen Scoring: (Mild/Moderate/Severe) Mild (0-2) No current attempt and no plan/intent - PSYCHIATRIC HX/TREATMENT HX Psychiatric: None - MEDICAL HX Does the pt have a hx of MRSA?: No Neurological History: None Eyes, Ears, Nose, Throat: Glaucoma, Other (cataracts) Cardiovascular: Hypertension, High cholesterol Respiratory: None Skin: Other (patient reports BLE "skin problems") Endocrine/Autoimmune: Type 2 diabetes Gastrointestinal: None Urinary: Frequency Musculoskeletal: Osteoarthritis, Other (reported history of "a knee and foot injury;" unknown specific injury or orientation) PMH Other: carpal tunnel right hand. States she no longer has glaucoma. - SURGICAL HX General: Cholecystectomy Orthopedic: Carpal Tunnel surgery - HOME MEDICATIONS Home Meds (as last confirmed): Patient History Medication Instructions Recorded Confirmed Aspirin [Aspir-Low] 81 mg PO DAILY 01/07/16 10/07/20 Atenolol 50 mg PO DAILY 01/07/16 10/07/20 Lisinopril 20 mg PO BID 01/07/16 10/07/20 Insulin Glargine,Hum.rec.anlog 45 unit SQ QPM 07/15/16 10/07/20 [Lantus] Simvastatin 20 mg PO QPM 11/30/16 10/07/20 Timolol 0.5% Ophth Drops [Timoptic 1 drops EACHEYE BID 11/30/16 10/07/20 0.5% Ophth Drops] amLODIPine [Norvasc] 5 mg DAILY 11/30/16 10/07/20 metFORMIN [Glucophage] 1,275 mg PO DAILY 11/30/16 10/07/20 Multivit-Min/Iron/Folic Acid/K 1 tab PO DAILY 02/07/17 10/07/20 [Multi-Day Plus Minerals Tablet] Brinzolamide/Brimonidine Tart 1 drops RIGHTEYE TID 10/07/20 10/07/20 [Simbrinza 1%-0.2% Eye Drops] metFORMIN [Glucophage] 850 mg PO QPM 10/07/20 10/07/20 - ALLERGIES Allergies (as last confirmed): Allergies Allergy/AdvReac Type Severity Reaction Status Date / Time No Known Drug Allergies Allergy Unverified 10/07/20 11:49 - FAMILY PSYCH/SUICIDE/SOCIAL HX-MENTAL Family - Suicide - Social Hx and Mental Status Exam: [employer] ([facility])-based Safety Assessment: Risk Factors Stressors: medical issues Attempts/Self-injury: denied Impulsivity: denied Drug/Alcohol History: denied Trauma history: denied Access to firearms: denied HI/Violence/Property destruction: denied Legal: denied Family Psych History: denied Family History of suicide: denied Protective Factors Internal: coping External: Social supports/ Therapeutic relationships: friends check on me Relationship history: after 30+ year marriage, no children Living situation: alone with occasional behavioral health care coordinator 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, 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 Education: BA Responsibility to family/children/work: no Future orientation: yes Mental Status Exam: Appearance and attire: unkempt with limited eye contact, possibly poor vision Attitude and behavior: calm and cooperative Psychomotor agitation/abnormal movements:no Speech: paucity but nl vol Affect and mood: I dont recall with a full range, pleasant affect Association and thought processes: slow and somewhat tangential Thought content: no suicidal or homicidal thoughts Perception: denied Sensorium, memory, and orientation: grossly oriented Intellectual functioning: above average Insight and judgment: fair - TREATMENT/PHARMACOLOGICAL RECOMMENDATION Treatment - Pharmacological - Therapy Recommendations: mpression/Risk Assessment: Current Suicide Risk Elevated?: no Current Violence Risk Elevated?: no Issues with ability to care for self?: no Summary: 80y/o wwf with no prior mental health treatment was brought in after being found with mental status changes. PT now alert and oriented, pleasant and engaging. She displays some minor cognitive deficits with slowed mentation but did not score in the range of cognitive impaired on MMSE. She denied any prior mental health care or substance issues. She lives alone and struggles with self care do to physical limitations but is currently coherent. She may have some word finding difficulty and minor cognitive slowing but overall appears aware of her medical needs and she appears to have capacity for medical decision making. She was calm, pleasant with depression. NO signs of roselia or psychosis. She denied suicidal or homicidal thoughts. She does not appear to require mental health treatment at this time but may be in need of increased assistance due to physical limitations. Diagnosis: no dx CPT code:43068 Treatment Plan: NO mental health recommendations at this time. Level of Care: Continue current level of care Psychiatric Clearance: yes Observation level close obs due to physical limitations Pharmacological: no psychotropic recommendations at this time Patient psychotic? no Therapy: supportive Follow up needed while in hospital?: call as needed - TIME SPENT & PROVIDER LOCATION Telepsych consultation conducted via videoconferencing: Yes List names and roles of persons who participated in consult: Vero and DR Smalls Telepsych Provider Location: [place] Time Telepsych consult began: 03:40 Time Telepsych consult completed: 04:40
[2020-10-09] MEDS: BRIMONIDINE TART RIGHTEYE SCH ×3 (06:10→21:07)
[2020-10-09] MEDS: BRINZOLAMIDE RIGHTEYE SCH ×3 (06:10→21:07)
--- NOTE | 2020-10-09 08:40 | PROVIDER PROGRESS NOTE ---
Subjective - Subjective Pt reports feeling: Improved (denies problem looks alert and well) Objective - Vital Signs/Intake & Output Vital Signs: Vital Signs x48h Temp Pulse Resp BP Pulse Ox 10/09/20 07:31 37.0 C 78 20 133/74 H 99 Intake & Output: Intake & Output 10/06/20 10/07/20 10/08/20 10/09/20 23:59 23:59 23:59 23:59 Intake Total 1200 3500 Output Total 800 1625 300 Balance 400 1875 -300 - Objective General Appearance: positive: No acute distress, Alert Eyes Bilateral: positive: PERRL, EOMI ENT: positive: No signs of dehydration Respiratory: positive: No respiratory distress Abdomen: positive: Non-tender, No distention Extremities: positive: Other (right healt eschar without change. no fluctuance or cellulitis.) - Lab Results Fish Bones: 10/08/20 06:02 10/08/20 06:02 Other Labs: Lab Results x24hrs 10/08/20 Range/Units 06:02 Troponin I High Sens 99.7 H* (2.3-14.8) ng/L Assessment/Plan - Problem List (1) Decubitus ulcer of sacral region Impression: History of decubitus ulcer. superficial sloughing of skin without full thickness ulcer. right heal eschar without change debridement at this time not indicated or recommended
[2020-10-09] MEDS: ASPIRIN EC 81 MG TABLET PO SCH (10:16)
[2020-10-09] MEDS: DOCUSATE SODIUM 250 MG CAPSULE PO SCH (10:16)
[2020-10-09] MEDS: atenoloL 25 MG TABLET PO SCH (10:17)
[2020-10-09] MEDS: ENOXAPARIN 40 MG/0.4 ML SYRINGE SUBQ SCH (10:17)
[2020-10-09] MEDS: lisinopriL 20 MG TABLET PO SCH ×2 (10:17→21:05)
[2020-10-09] MEDS: amLODIPine 5 MG TABLET PO SCH (10:17)
[2020-10-09 10:19] LABS: CREATININE 0.7 mg/dL (0.4-1.0)
[2020-10-09] MEDS: polyethylene glycoL 3350 17 GM PACKET PO SCH (10:19)
[2020-10-09] MEDS: NYSTATIN POWDER 15 GM TOP SCH ×2 (10:20→21:07)
[2020-10-09] MEDS: TIMOLOL 0.5% OPHTH DROPS EACHEYE SCH ×2 (10:24→21:06)
--- NOTE | 2020-10-09 11:28 | PROVIDER PROGRESS NOTE ---
Subjective - Prog Note Date Prog Note Date: 10/09/20 Prog Note Time: 11:25 - Subjective Pt reports feeling: Improved (Patient states she is feeling well today) Objective - Vital Signs/Intake & Output Vital Signs: Vital Signs x48h Temp Pulse Resp BP Pulse Ox 10/09/20 07:31 37.0 C 78 20 133/74 H 99 Intake & Output: Intake & Output 10/06/20 10/07/20 10/08/20 10/09/20 23:59 23:59 23:59 23:59 Intake Total 1200 3500 120 Output Total 800 1625 300 Balance 400 1875 -180 - Objective General Appearance: positive: No acute distress, Alert Neck: positive: Nml inspection Respiratory: positive: Chest non-tender, No respiratory distress Cardiovascular: positive: Irregularly irregular Abdomen: positive: Non-tender, Nml bowel sounds, Other (still with distention) Skin: positive: Warm, Dry, Decubitus (sacral, healing), Other (fungal wounds to abdominal folds and groin; healing icthymosis to BLEs) Extremities: positive: Other (DTI to right heel; BLE weakness, limited ROM) Neurologic/Psychiatric: positive: Oriented x3 - Lab Results Fish Bones: 10/08/20 06:02 10/09/20 10:02 Other Labs: Lab Results x24hrs 10/09/20 Range/Units 10:02 Sodium 141 (135-145) mmol/L Potassium 4.0 (3.5-5.0) mmol/L Chloride 108 (101-111) mmol/L Carbon Dioxide 23 (21-32) mmol/L Anion Gap 10.0 (6-13) BUN 25 H (6-20) mg/dL Creatinine 0.7 (0.4-1.0) mg/dL Estimated GFR (MDRD) 80 L (>89) Glucose 208 H (70-100) mg/dL Calcium 9.0 (8.5-10.3) mg/dL - Diagnostic Imaging Diagnostic Imaging Results: positive: Final report reviewed (CT abdomen, EKG reviewed) Assessment/Plan - Problem List (1) Altered mental status Impression: Patient was found down at home inside of her empty bathtub during a welfare check. She was down for an unknown period of time and does not remember why she was there nor what had happened. The patient answers some questions appropriately and demonstrates higher-level cognition (eg, when asked the date she stated "I'm not sure since I don't have a calendar, but I remember that Tuesday was the th so let me count"), but is also talking about things that have not happened. She insists that she was recently on a plane and took a trip somewhere and that her car is still at [place] airport and her purse is missing- this is not true, according to people close to her. She does not have a known history of dementia. Second UA does not indicate concern for UTI. CT head shows no acute intracranial abnormality. CXR unremarkable. ECHO unremarkable. Tele-psych consult states that patient displays some mild cognitive deficits with slowed mentation but does not score in the range of cognitive impairment on MMSE. Consult states that she does NOT have any signs of psychosis or roselia and appears to have medical decision-making capacity. Despite this, the patient continues to exhibit tangential speech patterns and perseverance on certain topics, including fictional scenarios that she believes are real. Qualifiers: Altered mental status type: unspecified Qualified Code(s): R41.82 - Altered mental status, unspecified (2) Dehydration Conclusion/Plan: Patient was found down for an unknown period of time. On admission she has elevated BUN and CK, which are slightly improved today. She is receiving IVFs. Will continue to trend BMP. (3) Abnormal urine findings Conclusion/Plan: Initial UA with RBCs, WBCs, casts, ketones, and proteinuria. Second UA does not indicate infection and does not have significant abnormal findings. Consider resolved. (4) Constipation Conclusion/Plan: Patient's abdomen is markedly rounded, full, and taut. She states she does not remember the last time she had a bowel movement. CT abdomend shows a moderate amount of stool in the colon. She did have a bowel movement overnight and then a large bowel movement again this afternoon. Senna, Miralax ordered. CT abdomen also showed an apparent area of wall thickening and narrowing involving the distal descending colon w/ a differential diagnosis including long segment stricture, neoplasm, and artifact for peristalsis. Radiologist report suggests to consider a dedicated colonoscopy for further evaluation (pursue as outpatient). (5) Neglect of personal hygiene Conclusion/Plan: The patient was rather odiferous upon admission and appears not to have bathed for quite some time. She states that she has someone who comes to help her with her legs 3x/week, and that there is "someone else but they might have covid" and says it has been a long time since she bathed. According to MEGHA Bond, the patient has been wheelchair-bound for some time since not following up with her recommended PT rehab after experiencing a knee injury and then a foot injury after prior falls. According to the patient's current caregiver, Eli Rodriguez ([phone]), and former caregiver Anamaria Carrington ([phone]), the patient has not bathed in months, if not years. Eli reportedly comes every Tuesday and every other Tuesday to help the patient with doctor's appointments and with cleaning her lower legs, though she is not a nurse and does not have formal wound care training. Per Eli, the patient was recently seen by podiatry and started on Keflex after her right great toenail was removed 2/2 a fungal infection. Per Eli, the patient had a "RN-type caregiver" who used to come more regularly and help the patient with bathing and personal hygiene, but the patient did not like the RN and stopped seeing her two years ago. There is concern that the patient has not bathed since her last hospitalization, which was at the end of 2018. Orders placed for BID full bed baths with pH-balanced wipes (once per nursing shift). She has multiple skin issues that are listed in detail below. (6) Disorganized thought process Conclusion/Plan: The patient answers some questions appropriately, but exhibits tangential, pressured speech that has been accurately described by her stepdaughter Ronda (MEGHA) as "like flipping through radio stations". The patient has no known history of psychiatric disorders. Per Ronda and the patient's current and past caregivers, the patient has always been verbal and erratic, but this has worsened since the pandemic. Telehealth psychiatry consult indicated no psychiatric disturbance, despite her presentation of occasional delisions and hallucinations. (See HPI note) (7) Acquired ichthyosis Conclusion/Plan: BLE acquired ichthyosis 2/2 lack of routine hygiene. She has significant BLE dry, flaky skin. Her ichthyosis is remarkably improved after nursing staff did a wonderful job cleansing and attending to gentle debridement of her excess epithelial deposits that were distributed above healthy epithelial tissue. Continue with BID bed baths and application of ammonia lactate lotion to BLE and gentle debridement, as needed. (8) Decubitus ulcer of sacral region Conclusion/Plan: She has a history of a sacral decubitous ulcer for which she was receiving care at a SNF ([facility]) some time ago. Photos have been posted in nursing note and show what appears to be a pale/pink healing pressure ulcer which was likely aggravated while she was down in the bathtub. No intervention asided from alternating pressure to offload shearing of new tissue. Nursing also included a photo of a deep tissue injury that appears new to her right heel. Continue to alternate turning to q2hrs and to float heels at all times. She may benefit from a specialized heel protector, though unfortunately these are not carried by distribution. [facility] is unable to order specialty mattresses, but she may benefit from an alternating pressure air mattress in the future. (9) Raynaud's phenomenon Conclusion/Plan: The patient has significant cyanotic discoloration to both hands, including her palms and digits. She has sluggish capillary refill with mottling to her BUEs, though this is somewhat improved today from her initial presentation. Her hands are cool to touch but are not painful. Her hands appear somewhat contracted. She does have a positive history of carpal tunnel repair. She will need an outpatient vascular referral upon discharge to further evaluate, should she wish. (10) Elevated troponin Conclusion/Plan: Troponin elevated upon admission, remains elevated and up-trending. She denies chest pain, palpitations, or shortness of breath. Continue to trend troponin until peak. (See #11 below) (11) NSTEMI Conclusion/Plan: See above (#10). Troponin jumped to 380.2 this morning (10/09/20), up from 99.7 yesterday (10/08/20). This afternoon, the troponin jumped again to 442.6, accompanied by tachycardia in the low 100's. Patient continues to deny palpitations, chest pain, dizziness, nausea. Patient is already anticoagulated on enoxaparin and aspirin, though she will need a therapeutic dose of enoxaparin for the next 3 days. Will initiate metoprolol today along with a statin and therapeutic enoxaparin dose for 72hrs. Continue to trend troponin for peak level. Qualifiers: Altered mental status type: unspecified Qualified Code(s): R41.82 - Altered mental status, unspecified
[2020-10-09 11:36] LABS: ESTIMATED AVERAGE GLUCOSE 123 mg/dL (70-100); HEMOGLOBIN A1c% 5.9 % (4.27-6.07)
[2020-10-09] MEDS ORDERED: polyethylene glycoL 3350 17 GM PACKET PO ONE (12:00)
[2020-10-09] MEDS: AMMONIUM LACTATE 227 GM BOTTLE TOP SCH ×2 (13:03→21:06)
[2020-10-09] MEDS: ATORVASTATIN 40 MG TABLET PO SCH ×2 (16:49→21:06)
[2020-10-09] MEDS ORDERED: METOPROLOL TARTRATE 25 MG TABLET PO SCH (21:00)
[2020-10-09] MEDS: ENOXAPARIN 80 MG/0.8 ML SYRINGE SUBQ SCH (21:07)
[2020-10-10 05:59] LABS: BASOPHILS # (AUTO) 0.1 10^3/uL (0.0-0.1); BASOPHILS % (AUTO) 0.6 %; EOSINOPHILS # (AUTO) 0.2 10^3/uL (0.0-0.7); EOSINOPHILS % (AUTO) 2.5 %; HCT - HEMATOCRIT 35.5 % (37.0-47.0); HGB - HEMOGLOBIN 11.1 g/dL (12.0-16.0); LYMPHOCYTES # (AUTO) 2.7 10^3/uL (1.5-3.5); MEAN CORPUSCULAR HEMOGLOBIN 29.7 pg (27.0-31.0); MEAN CORPUSCULAR HGB CONC 31.3 g/dL (32.0-36.0); MEAN CORPUSCULAR VOLUME 94.9 fL (81.0-99.0); MEAN PLATELET VOLUME 11.2 fL (7.9-10.8); MONOCYTES # (AUTO) 0.8 10^3/uL (0.0-1.0); MONOCYTES % (AUTO) 10.1 %; NEUTROPHILS # (AUTO) 4.3 10^3/uL (1.5-6.6); NEUTROPHILS % (AUTO) 53.3 %; PLT - PLATELET COUNT 300 10^3/uL (130-450); RED BLOOD COUNT 3.74 10^6/uL (4.20-5.40); RED CELL DISTRIBUTION WIDTH 15.6 % (12.0-15.0); WHITE BLOOD COUNT 8.1 x10^3/uL (4.8-10.8)
[2020-10-10] MEDS: BRIMONIDINE TART RIGHTEYE SCH ×3 (06:11→21:42)
[2020-10-10] MEDS: BRINZOLAMIDE RIGHTEYE SCH ×3 (06:11→21:42)
[2020-10-10 06:27] LABS: CREATININE 0.6 mg/dL (0.4-1.0); POTASSIUM 3.9 mmol/L (3.5-5.0)
[2020-10-10] MEDS: DOCUSATE SODIUM 250 MG CAPSULE PO SCH (08:20)
[2020-10-10] MEDS: ENOXAPARIN 80 MG/0.8 ML SYRINGE SUBQ SCH ×2 (08:20→21:00)
[2020-10-10] MEDS: atenoloL 25 MG TABLET PO SCH (08:20)
[2020-10-10] MEDS: ASPIRIN EC 81 MG TABLET PO SCH (08:20)
[2020-10-10] MEDS: amLODIPine 5 MG TABLET PO SCH (08:20)
[2020-10-10] MEDS: AMMONIUM LACTATE 227 GM BOTTLE TOP SCH ×2 (08:20→21:00)
[2020-10-10] MEDS: lisinopriL 20 MG TABLET PO SCH ×2 (08:21→21:00)
[2020-10-10] MEDS: polyethylene glycoL 3350 17 GM PACKET PO SCH (08:22)
[2020-10-10] MEDS: TIMOLOL 0.5% OPHTH DROPS EACHEYE SCH ×2 (08:23→21:01)
[2020-10-10] MEDS: NYSTATIN POWDER 15 GM TOP SCH ×2 (08:23→21:01)
[2020-10-10] MEDS: SODIUM CHLORIDE FLUSH 0.9% 10 ML SYRINGE IVP SCH ×3 (08:31→23:58)
--- NOTE | 2020-10-10 09:42 | PROVIDER PROGRESS NOTE ---
Subjective - Prog Note Date Prog Note Date: 10/10/20 Prog Note Time: 09:40 - Subjective Pt reports feeling: Worse (Patient states her eyes are starting to bother her a great deal. She takes prescription eye drops that [facility] doesn't carry, and she currently does not have anyone who is able to pick her personal drops up from her home. BLEs more tender today.) Objective - Vital Signs/Intake & Output Vital Signs: Vital Signs x48h Temp Pulse Resp BP Pulse Ox 10/10/20 07:30 36.8 C 72 16 156/60 H 100 10/10/20 02:00 96 10/10/20 01:50 93 Intake & Output: Intake & Output 10/07/20 10/08/20 10/09/20 10/10/20 23:59 23:59 23:59 23:59 Intake Total 1200 3500 465 120 Output Total 800 1625 850 225 Balance 400 9540 -448 -105 - Objective General Appearance: positive: No acute distress, Alert Eyes Bilateral: positive: Other (lid inflammation, scleritis) Neck: positive: Nml inspection Respiratory: positive: Chest non-tender, No respiratory distress, Breath sounds nml Cardiovascular: positive: Regular rate & rhythm, No gallop Abdomen: positive: Non-tender, Nml bowel sounds Skin: positive: Warm, Other (scabbed lesions to BLEs, DTI to right heel (very boggy), fungal irritation to abdominal folds/groin) Extremities: positive: Pedal edema, Other (tender BLE, RLE 3+ edema, LLE 2+ edema) Neurologic/Psychiatric: positive: Oriented x3 - Lab Results Fish Bones: 10/10/20 05:10 10/10/20 05:10 Other Labs: Lab Results x24hrs 10/10/20 10/10/20 10/10/20 Range/Units 05:10 05:10 05:10 WBC 8.1 (4.8-10.8) x10^3/uL RBC 3.74 L (4.20-5.40) 10^6/uL Hgb 11.1 L (12.0-16.0) g/dL Hct 35.5 L (37.0-47.0) % MCV 94.9 (81.0-99.0) fL MCH 29.7 (27.0-31.0) pg MCHC 31.3 L (32.0-36.0) g/dL RDW 15.6 H (12.0-15.0) % Plt Count 300 (130-450) 10^3/uL MPV 11.2 H (7.9-10.8) fL Neut # (Auto) 4.3 (1.5-6.6) 10^3/uL Lymph # (Auto) 2.7 (1.5-3.5) 10^3/uL [place] # (Auto) 0.8 (0.0-1.0) 10^3/uL Eos # (Auto) 0.2 (0.0-0.7) 10^3/uL Baso # (Auto) 0.1 (0.0-0.1) 10^3/uL Absolute Nucleated RBC 0.00 x10^3/uL Nucleated RBC % 0.0 /100WBC Sodium 142 (135-145) mmol/L Potassium 3.9 (3.5-5.0) mmol/L Chloride 109 (101-111) mmol/L Carbon Dioxide 25 (21-32) mmol/L Anion Gap 8.0 (6-13) BUN 22 H (6-20) mg/dL Creatinine 0.6 (0.4-1.0) mg/dL Estimated GFR (MDRD) 96 (>89) Glucose 151 H (70-100) mg/dL Estimat Average Glucose (70-100) mg/dL Hemoglobin A1c % (4.27-6.07) % Calcium 9.0 (8.5-10.3) mg/dL Troponin I High Sens 301.0 H* (2.3-14.8) ng/L 10/09/20 10/09/20 10/09/20 Range/Units 16:05 10:02 10:02 WBC (4.8-10.8) x10^3/uL RBC (4.20-5.40) 10^6/uL Hgb (12.0-16.0) g/dL Hct (37.0-47.0) % MCV (81.0-99.0) fL MCH (27.0-31.0) pg MCHC (32.0-36.0) g/dL RDW (12.0-15.0) % Plt Count (130-450) 10^3/uL MPV (7.9-10.8) fL Neut # (Auto) (1.5-6.6) 10^3/uL Lymph # (Auto) (1.5-3.5) 10^3/uL [place] # (Auto) (0.0-1.0) 10^3/uL Eos # (Auto) (0.0-0.7) 10^3/uL Baso # (Auto) (0.0-0.1) 10^3/uL Absolute Nucleated RBC x10^3/uL Nucleated RBC % /100WBC Sodium (135-145) mmol/L Potassium (3.5-5.0) mmol/L Chloride (101-111) mmol/L Carbon Dioxide (21-32) mmol/L Anion Gap (6-13) BUN (6-20) mg/dL Creatinine (0.4-1.0) mg/dL Estimated GFR (MDRD) (>89) Glucose (70-100) mg/dL Estimat Average Glucose 123 H (70-100) mg/dL Hemoglobin A1c % 5.9 (4.27-6.07) % Calcium (8.5-10.3) mg/dL Troponin I High Sens 442.6 H* 380.2 H* (2.3-14.8) ng/L 10/09/20 Range/Units 10:02 WBC (4.8-10.8) x10^3/uL RBC (4.20-5.40) 10^6/uL Hgb (12.0-16.0) g/dL Hct (37.0-47.0) % MCV (81.0-99.0) fL MCH (27.0-31.0) pg MCHC (32.0-36.0) g/dL RDW (12.0-15.0) % Plt Count (130-450) 10^3/uL MPV (7.9-10.8) fL Neut # (Auto) (1.5-6.6) 10^3/uL Lymph # (Auto) (1.5-3.5) 10^3/uL [place] # (Auto) (0.0-1.0) 10^3/uL Eos # (Auto) (0.0-0.7) 10^3/uL Baso # (Auto) (0.0-0.1) 10^3/uL Absolute Nucleated RBC x10^3/uL Nucleated RBC % /100WBC Sodium 141 (135-145) mmol/L Potassium 4.0 (3.5-5.0) mmol/L Chloride 108 (101-111) mmol/L Carbon Dioxide 23 (21-32) mmol/L Anion Gap 10.0 (6-13) BUN 25 H (6-20) mg/dL Creatinine 0.7 (0.4-1.0) mg/dL Estimated GFR (MDRD) 80 L (>89) Glucose 208 H (70-100) mg/dL Estimat Average Glucose (70-100) mg/dL Hemoglobin A1c % (4.27-6.07) % Calcium 9.0 (8.5-10.3) mg/dL Troponin I High Sens (2.3-14.8) ng/L Assessment/Plan - Problem List (1) Altered mental status Impression: Patient was found down at home inside of her empty bathtub during a welfare check. She was down for an unknown period of time and does not remember why she was there nor what had happened. She was discovered after a welfare check was called in by her caregiver. The patient answers some questions appropriately and demonstrates higher-level cognition, but occasionally preservatives on certain topics. She is very tangential/verbal. She does not have a known history of dementia. Second UA does not indicate concern for UTI. CT head shows no acute intracranial abnormality. CXR unremarkable. Tele-psych consult states that patient displays some mild cognitive deficits with slowed mentation but does not score in the range of cognitive impairment on MMSE. Consult states that she does NOT have any signs of psychosis or roselia and appears to have medical decision-making capacity. Despite this, the patient continues to exhibit tangential speech patterns and perseverance on certain topics, including fictional scenarios that she believes are real. (2) Elevated troponin Conclusion/Plan: Troponin elevated upon admission, peak level yesterday afternoon. She denies chest pain, palpitations, or shortness of breath. Will initiate telemetry today to monitor for any changes. (See #11 below) (3) NSTEMI Conclusion/Plan: See above (#10). Troponin jumped to 380.2 this morning (10/09/20), up from 99.7 yesterday (). This afternoon, the troponin jumped again to 442.6, accompanied by tachycardia in the low 100's. Patient continues to deny palpitations, chest pain, dizziness, nausea. Patient is already anticoagulated on enoxaparin and aspirin, though she will need a therapeutic dose of enoxaparin for the next 3 days. Will initiate metoprolol today along with a statin and therapeutic enoxaparin dose for 72hrs. Continue to trend troponin for peak level. (4) Acquired ichthyosis Conclusion/Plan: BLE acquired ichthyosis 2/2 lack of routine hygiene. She presented with significant BLE dry, flaky skin on admission. Her ichthyosis is remarkably improved after nursing staff did a wonderful job cleansing and attending to gentle debridement of her excess epithelial deposits that were distributed above healthy epithelial tissue. Continue with BID bed baths and application of ammonia lactate lotion to BLE and gentle debridement, as needed. (5)Cellulitis Conclusion/Plan: She now has scattered superficial wounds that are scabbed over where the ichthiosis flakes once were. BLEs are swollen, pink and tender now (R>L). Though her WBCs aren't concerning, she appears to have some localized cellulitis (R>L). Will initiate empiric antibiotics today. (6)Deep tissue injury Conclusion/Plan: DTI to right heel. This is also photographed in the nursing wound note, though it has progressed from the original image and now appears quite boggy with an accumulation of sloughed tissue inside. We have re-consulted with general surgery and they plan to debride this afternoon. This could be contributing to the RLE edema and cellulitis; antibiotics initiated today (10/10/20). (7) Decubitus ulcer of sacral region Conclusion/Plan: She has a history of a sacral decubitous ulcer for which she was receiving care at a SNF ([facility]) some time ago. Photos have been posted in the nursing wound note and show what appears to be a pale/pink healing pressure ulcer which was likely aggravated while she was down in the bathtub. No intervention asided from alternating pressure to offload shearing of new tissue. Nursing also included a photo of a deep tissue injury that appears new to her right heel. Continue to alternate turning to q2hrs and to float heels at all times. She may benefit from a specialized heel protector, though unfortunately these are not carried by distribution. [facility], but she may benefit from an alternating pressure air mattress in the future. (8) Raynaud's phenomenon Conclusion/Plan: The patient had significant cyanotic discoloration to both hands, including her palms and digits. She has sluggish capillary refill with mottling to her BUEs, though this has improved today from her initial presentation. Her hands are cool to touch but are not painful. Her hands appear somewhat contracted. She does have a positive history of carpal tunnel repair. She will need an outpatient vascular referral upon discharge to further evaluate, should she wish. (9) Dehydration Conclusion/Plan: Patient was found down for an unknown period of time. On admission she has elevated BUN and CK, which have continued to improve since admission. Will continue to trend BMP. (10) Constipation Conclusion/Plan: Patient's did not remember the last time she had a bowel movement, and initially presented with a very distended, full abdomen. CT confirmed a moderate amount of stool in the colon, but she has since had two large bowel movements and this appears to have improved. Continue Senna, Miralax per nursing protocol. Of note, CT abdomen also showed an apparent area of wall thickening and narrowing involving the distal descending colon w/ a differential diagnosis inc luding long segment stricture, neoplasm, and artifact for peristalsis. Radiologist report suggests to consider a dedicated colonoscopy for further evaluation (pursue as outpatient). (11) Neglect of personal hygiene Conclusion/Plan: The patient was rather odiferous and unkempt upon admission. She has someone who comes to help her with her legs 3x/week, but they do not help with bathing. Acco rding to MEGHA Bond, the patient has been wheelchair-bound for some time since not following up with her recommended PT rehab after experiencing a knee injury and then a foot injury after prior falls. She reportedly "gets around okay" with her wheelchair at home, but appears to have some self neglect. According to the patient's current caregiver, Eli Rodriguez ([phone]), and former caregiver Anamaria Zeb ([phone]), the patient has not bathed in months, if not years. Eli reportedly comes every Tuesday and every other Tuesday to help the patient with doctor's appointments and with cleaning her lower legs, though she states she is not a nurse and does not have formal wound care training. Per Eli, the patient was recently seen by podiatry and started on Keflex after her right great toenail was removed 2/2 a fungal infection. Per Eli, the patient had a "RN-type caregiver" who used to come more regularly and help the patient with bathing and personal hygiene, but the patient did not like the RN and stopped seeing her two years ago. There is concern that the patient has not bathed since her last hospitalization, which was at the end of 2018. Orders placed for BID full bed baths with pH-balanced wipes (once per nursing shift). She has multiple skin issues that are listed in detail below. (12) Disorganized thought process Conclusion/Plan: This has improved since admission, and the patient appears to be back to baseline. The patient answers most questions appropriately, but exhibits tangential, pressured speech that has been accurately described by her stepdaughter Ronda (DPOA) as "like flipping through radio stations". Apparently this is just who she is. Per Ronda and the patient's current and past caregivers, the patient has always been verbal and erratic, but this has worsened since the pandemic. Telehealth psychiatry consult indicated no psychiatric disturbance, despite her presentation of occasional delisions and hallucinations. (See HPI note) Consider resolved. (13) Abnormal urine findings Conclusion/Plan: Initial UA with RBCs, WBCs, casts, ketones, and proteinuria. Second UA does not indicate infection and does not have significant abnormal findings. Consider resolved. Qualifiers: Altered mental status type: unspecified Qualified Code(s): R41.82 - Altered mental status, unspecified
[2020-10-10] MEDS: ceFAZolin 1 GM in SODIUM CHLORIDE 0.9% MINIBAG 100 ML IV SCH ×2 (11:13→19:26)
[2020-10-10] MEDS: INSULIN ASPART 300 UNIT/3 ML PEN SUBQ SCH ×3 (11:21→21:00)
--- NOTE | 2020-10-10 15:28 | PROCEDURE REPORT ---
Hospitalist Procedure Note - Procedure Note Procedure Note: Procedure note Preop diagnosis pressure sore right heel Postop diagnosis pressure sore right heel Procedure sharp debridement right heel pressure sore Anesthesia none Specimen none clinically benign tissue Estimated blood loss none Complications none Indications for procedure the patient came into the hospital with a pressure sore of her right heel. Over several days the pressure sore became softer despite leg elevation. She had mild fluctuance present. Debridement was recommended. Risks discussed, alternatives discussed all questions answered and verbal consent obtained. With clean technique and sharp disection superficial 3cm of necrotic epidermis was removed. Underlying dermis was ecchymotic or black and blue however seemed viable. Dressing was applied. She tolerated the procedure well
--- NOTE | 2020-10-10 15:30 | PROVIDER PROGRESS NOTE ---
Subjective - Subjective Pt reports feeling: No change Objective - Vital Signs/Intake & Output Reviewed Vital Signs: Yes Vital Signs: Vital Signs x48h Temp Pulse Resp BP Pulse Ox 10/10/20 11:03 36.9 C 75 20 152/58 H 94 10/10/20 07:30 36.8 C 72 16 156/60 H 100 Intake & Output: Intake & Output 10/07/20 10/08/20 10/09/20 10/10/20 23:59 23:59 23:59 23:59 Intake Total 1200 3500 465 470 Output Total 800 1625 850 475 Balance 400 1875 -385 -5 - Objective General Appearance: positive: No acute distress, Alert Eyes Bilateral: positive: PERRL, EOMI Respiratory: positive: No respiratory distress Abdomen: positive: No distention Skin: positive: Other (right heel 3 cm pressure sore. now soft and fluctuant.) - Lab Results Fish Bones: 10/10/20 05:10 10/10/20 05:10 Other Labs: Lab Results x24hrs 10/10/20 10/10/20 10/10/20 Range/Units 05:10 05:10 05:10 WBC 8.1 (4.8-10.8) x10^3/uL RBC 3.74 L (4.20-5.40) 10^6/uL Hgb 11.1 L (12.0-16.0) g/dL Hct 35.5 L (37.0-47.0) % MCV 94.9 (81.0-99.0) fL MCH 29.7 (27.0-31.0) pg MCHC 31.3 L (32.0-36.0) g/dL RDW 15.6 H (12.0-15.0) % Plt Count 300 (130-450) 10^3/uL MPV 11.2 H (7.9-10.8) fL Neut # (Auto) 4.3 (1.5-6.6) 10^3/uL Lymph # (Auto) 2.7 (1.5-3.5) 10^3/uL [place] # (Auto) 0.8 (0.0-1.0) 10^3/uL Eos # (Auto) 0.2 (0.0-0.7) 10^3/uL Baso # (Auto) 0.1 (0.0-0.1) 10^3/uL Absolute Nucleated RBC 0.00 x10^3/uL Nucleated RBC % 0.0 /100WBC Sodium 142 (135-145) mmol/L Potassium 3.9 (3.5-5.0) mmol/L Chloride 109 (101-111) mmol/L Carbon Dioxide 25 (21-32) mmol/L Anion Gap 8.0 (6-13) BUN 22 H (6-20) mg/dL Creatinine 0.6 (0.4-1.0) mg/dL Estimated GFR (MDRD) 96 (>89) Glucose 151 H (70-100) mg/dL Calcium 9.0 (8.5-10.3) mg/dL Troponin I High Sens 301.0 H* (2.3-14.8) ng/L 10/09/20 Range/Units 16:05 WBC (4.8-10.8) x10^3/uL RBC (4.20-5.40) 10^6/uL Hgb (12.0-16.0) g/dL Hct (37.0-47.0) % MCV (81.0-99.0) fL MCH (27.0-31.0) pg MCHC (32.0-36.0) g/dL RDW (12.0-15.0) % Plt Count (130-450) 10^3/uL MPV (7.9-10.8) fL Neut # (Auto) (1.5-6.6) 10^3/uL Lymph # (Auto) (1.5-3.5) 10^3/uL [place] # (Auto) (0.0-1.0) 10^3/uL Eos # (Auto) (0.0-0.7) 10^3/uL Baso # (Auto) (0.0-0.1) 10^3/uL Absolute Nucleated RBC x10^3/uL Nucleated RBC % /100WBC Sodium (135-145) mmol/L Potassium (3.5-5.0) mmol/L Chloride (101-111) mmol/L Carbon Dioxide (21-32) mmol/L Anion Gap (6-13) BUN (6-20) mg/dL Creatinine (0.4-1.0) mg/dL Estimated GFR (MDRD) (>89) Glucose (70-100) mg/dL Calcium (8.5-10.3) mg/dL Troponin I High Sens 442.6 H* (2.3-14.8) ng/L Assessment/Plan - Problem List (1) Decubitus ulcer of sacral region Impression: plan debridement right heel pressure sore
[2020-10-10] MEDS: ATORVASTATIN 40 MG TABLET PO SCH (21:00)
[2020-10-11] MEDS ORDERED: hydrALAZINE INJ 20 MG/ML VIAL IVP ONE (00:08)
[2020-10-11] MEDS: ceFAZolin 1 GM in SODIUM CHLORIDE 0.9% MINIBAG 100 ML IV SCH ×3 (02:19→18:25)
[2020-10-11] MEDS: SODIUM CHLORIDE FLUSH 0.9% 10 ML SYRINGE IVP PRN ×2 (02:20→12:01)
[2020-10-11] MEDS: BRINZOLAMIDE RIGHTEYE SCH ×3 (05:41→21:20)
[2020-10-11] MEDS: BRIMONIDINE TART RIGHTEYE SCH ×3 (05:41→21:20)
[2020-10-11 05:53] LABS: BASOPHILS # (AUTO) 0.1 10^3/uL (0.0-0.1); BASOPHILS % (AUTO) 0.5 %; EOSINOPHILS # (AUTO) 0.4 10^3/uL (0.0-0.7); EOSINOPHILS % (AUTO) 3.7 %; HCT - HEMATOCRIT 37.5 % (37.0-47.0); HGB - HEMOGLOBIN 11.8 g/dL (12.0-16.0); LYMPHOCYTES # (AUTO) 2.5 10^3/uL (1.5-3.5); LYMPHOCYTES % (AUTO) 25.5 %; MEAN CORPUSCULAR HEMOGLOBIN 29.6 pg (27.0-31.0); MEAN CORPUSCULAR HGB CONC 31.5 g/dL (32.0-36.0); MEAN CORPUSCULAR VOLUME 94.2 fL (81.0-99.0); MEAN PLATELET VOLUME 10.7 fL (7.9-10.8); MONOCYTES % (AUTO) 10.3 %; NEUTROPHILS # (AUTO) 5.9 10^3/uL (1.5-6.6); NEUTROPHILS % (AUTO) 59.3 %; PLT - PLATELET COUNT 310 10^3/uL (130-450); RED BLOOD COUNT 3.98 10^6/uL (4.20-5.40); RED CELL DISTRIBUTION WIDTH 15.2 % (12.0-15.0)
[2020-10-11 06:01] LABS: CALCIUM 9.2 mg/dL (8.5-10.3); CREATININE 0.5 mg/dL (0.4-1.0)
[2020-10-11 08:06] LABS: ESTIMATED AVERAGE GLUCOSE 123 mg/dL (70-100); HEMOGLOBIN A1c% 5.9 % (4.27-6.07)
[2020-10-11] MEDS: INSULIN ASPART 300 UNIT/3 ML PEN SUBQ SCH ×4 (08:24→20:42)
[2020-10-11] MEDS: ASPIRIN EC 81 MG TABLET PO SCH (08:26)
[2020-10-11] MEDS: atenoloL 25 MG TABLET PO SCH (08:26)
[2020-10-11] MEDS: DOCUSATE SODIUM 250 MG CAPSULE PO SCH (08:28)
[2020-10-11] MEDS: ENOXAPARIN 80 MG/0.8 ML SYRINGE SUBQ SCH ×2 (08:31→20:38)
[2020-10-11] MEDS: polyethylene glycoL 3350 17 GM PACKET PO SCH (08:32)
[2020-10-11] MEDS: NYSTATIN POWDER 15 GM TOP SCH ×2 (08:33→20:13)
[2020-10-11] MEDS: TIMOLOL 0.5% OPHTH DROPS EACHEYE SCH ×2 (08:37→20:25)
[2020-10-11] MEDS: lisinopriL 20 MG TABLET PO SCH ×2 (08:41→20:38)
[2020-10-11] MEDS: amLODIPine 5 MG TABLET PO SCH (08:42)
[2020-10-11] MEDS: SODIUM CHLORIDE FLUSH 0.9% 10 ML SYRINGE IVP SCH ×2 (08:43→16:54)
[2020-10-11] MEDS: AMMONIUM LACTATE 227 GM BOTTLE TOP SCH ×2 (09:07→20:13)
--- NOTE | 2020-10-11 16:47 | PROVIDER PROGRESS NOTE ---
Subjective - Prog Note Date Prog Note Date: 10/11/20 - Subjective Pt reports feeling: Improved Subjective: Reports she feels "fine" but did not sleep well. Denies fevers or chills. Does not want to get up to the chair today as it hurts her bottom due to a piriformus injury from 1990. Objective - Vital Signs/Intake & Output Reviewed Vital Signs: Yes Vital Signs: Vital Signs x48h Temp Pulse Resp BP Pulse Ox 10/11/20 13:00 36.9 C 74 18 152/63 H 95 Intake & Output: Intake & Output 10/08/20 10/09/20 10/10/20 10/11/20 23:59 23:59 23:59 23:59 Intake Total 3500 465 1160 500 Output Total 1625 850 875 800 Balance 6280 -329 285 -300 - Objective General Appearance: positive: No acute distress, Alert Eyes Bilateral: positive: PERRL, EOMI Eyes: OU Lid inflammation ENT: positive: ENT inspection nml Neck: positive: Nml inspection Respiratory: positive: Chest non-tender, No respiratory distress, Breath sounds nml. negative: Wheezes, Rhonchi Cardiovascular: positive: Regular rate & rhythm. negative: No murmur, No gallop Abdomen: positive: Non-tender, No organomegaly, Nml bowel sounds Skin: positive: Warm, Pallor, Other (scattered scabs to the bilateral lower ext remities, R heel DTI boggy, intertrigo greatly improved to abdominal and groin folds) Extremities: positive: Non-tender, Pedal edema, Other (2+ edema bilateral lower extremities) Neurologic/Psychiatric: positive: Oriented x3 - Lab Results Fish Bones: 10/11/20 05:29 10/11/20 05:29 Other Labs: Lab Results x24hrs 10/11/20 10/11/20 10/11/20 Range/Units 05:29 05:29 05:29 WBC 10.0 (4.8-10.8) x10^3/uL RBC 3.98 L (4.20-5.40) 10^6/uL Hgb 11.8 L (12.0-16.0) g/dL Hct 37.5 (37.0-47.0) % MCV 94.2 (81.0-99.0) fL MCH 29.6 (27.0-31.0) pg MCHC 31.5 L (32.0-36.0) g/dL RDW 15.2 H (12.0-15.0) % Plt Count 310 (130-450) 10^3/uL MPV 10.7 (7.9-10.8) fL Neut # (Auto) 5.9 (1.5-6.6) 10^3/uL Lymph # (Auto) 2.5 (1.5-3.5) 10^3/uL [place] # (Auto) 1.0 (0.0-1.0) 10^3/uL Eos # (Auto) 0.4 (0.0-0.7) 10^3/uL Baso # (Auto) 0.1 (0.0-0.1) 10^3/uL Absolute Nucleated RBC 0.00 x10^3/uL Nucleated RBC % 0.0 /100WBC Sodium 144 (135-145) mmol/L Potassium 4.0 (3.5-5.0) mmol/L Chloride 109 (101-111) mmol/L Carbon Dioxide 26 (21-32) mmol/L Anion Gap 9.0 (6-13) BUN 17 (6-20) mg/dL Creatinine 0.5 (0.4-1.0) mg/dL Estimated GFR (MDRD) 118 (>89) Glucose 145 H (70-100) mg/dL Estimat Average Glucose 123 H (70-100) mg/dL Hemoglobin A1c % 5.9 (4.27-6.07) % Calcium 9.2 (8.5-10.3) mg/dL ABX Reporting Has patient been on IV antibiotics over the past 48 hours?: No Sepsis Event Note (H) - Evaluation Current Stage of Sepsis: Ruled out Assessment/Plan - Problem List (1) Altered mental status Impression: Patient was found down at home inside of her empty bathtub during a welfare check. She was down for an unknown period of time and does not remember why she was there or what had happened. She was discovered after a welfare check was called in by her caregiver. She is oriented to place, self, date/year but continues to be tangential and verbal. Describes going to a welcome home parade for servicemen/women returning from the [place] in 1990 and after an "incident" with a lawn chair (which she is able to specifically describe) she ended up with a piriformis injury that now makes sitting in certain hard surfaced chairs difficult. It is not clear if this actually occurred or is a fictional scenario. She does not have a known history of dementia. Second UA was negative for UTI CT head was normal CXR normal Tele-psych consult states that patient displays some mild cognitive deficits with slowed mentation but does not score in the range of cognitive impairment on MMSE. Consult states that she does NOT have any signs of psychosis or roselia and appears to have medical decision-making capacity. Despite this, the patient continues to exhibit tangential speech patterns and perseverance on certain topics, including fictional scenarios that she believes are real. Qualifiers: Altered mental status type: unspecified Qualified Code(s): R41.82 - Altered mental status, unspecified (2) Elevated troponin Impression: Troponin elevated upon admission, peak level 10/09 afternoon. She denies chest pain, palpitations, or shortness of breath. Has been sinus rhythm on telemetry today. Continue telemetry. (3) NSTEMI (non-ST elevated myocardial infarction) Impression: Troponin jumped to 380.2 10/09/20, up from 99.7 10/08/20. Jumped again to 442.6 on 10/09 accompanied by tachycardia in the low 100's. Peak of 442, downtrending to 300s as of 10/10. Patient continues to deny palpitations, chest pain, dizziness, nausea. Patient is already anticoagulated on enoxaparin and aspirin, though she will need a therapeutic dose of enoxaparin through 10/11 (last dose tonight). Continue cardiac meds (atenolol and lisinopril). (4) Cellulitis Impression: She was started on empiric abx yesterday after her legs were noted to be swollen, pink and tender. WBC has remained normal but there was concern for localized cellulitis (R>L). Now that the ichthiosis has for the most part reso lved her skin is clearer. While there is light pink discoloration along both shins I think it may be more likely that this is stasis dermatitis rather than cellulitis. Will plan to stop the abx tomorrow or Tuesday depending on how her legs look tomorrow if her WBC remains stable normal. Continue to wash daily and elevate the legs. Qualifiers: Site of cellulitis of extremity: lower extremity Laterality: right (5) Suspected deep tissue injury Impression: DTI to right heel. S/p debridement by Dr. Guevara yesterday. The tissue remains maroon and dark, non-blanching, and may be evolving to eschar. Edges are attached and there is minimal periwound erythema. No concerns for infection at this time. Pedal edema+, DP pulse palpable. She denied pain at the site. Xeroform was reapplied today per Dr. Guevara's orders. The foot was elevated on pillows as no offloading boot was available. Continue to float the heels with her legs on pillows and the heels in the air at all times while she is in bed. Wound Care per Dr. Guevara' orders: Xeroform and gauze and MILY wrap daily. Please make sure the MILY wrap extends from the base of the toes up to just below her knee so that edema is not increased above and below the wrap. She may benefit from a Wound Care consult for compression. (6) Decubitus ulcer of sacral region Impression: Hx of sacral pressure injury for which she was receiving care at [facility]. Admission photos show the area was pale and pink healing tissue likely aggravated while she was in the bathtub. I was not able to see the area today however nursing reports it is essentially healed. Pt was supine for quite awhile today but reports she has been trying to stay turned on her side to offload the area. Continue to turn her from side to side every 2 hours and encourage frequent repositioning when she is up in a chair. She may benefit from an alternating pressure air mattress in the future if insurance will allow at home, though she also reports having a special foam she wants to try at home for her bed. Qualifiers: Pressure injury stage: stage 2 Qualified Code(s): L89.152 - Pressure ulcer of sacral region, stage 2 (7) Raynaud's phenomenon Impression: The patient had significant cyanotic discoloration to both hands, including her palms and digits. She has sluggish capillary refill with mottling to her BUEs, though this has improved from her initial presentation. Her hands are cool to touch but are not painful. Her hands appear somewhat contracted. She does have a positive history of carpal tunnel repair. She will need an outpatient vascular referral upon discharge to further evaluate, should she wish. (8) Constipation Impression: Patient did not remember the last time she had a bowel movement, and initially presented with a very distended, full abdomen. CT confirmed a moderate amount of stool in the colon, but she has since had two large bowel movements and this appears to have improved. Continue Senna, Miralax per nursing protocol. Of note, CT abdomen also showed an apparent area of wall thickening and narrowing involving the distal descending colon w/ a differential diagnosis including long segment stricture, neoplasm, and artifact for peristalsis. Radiologist report suggests to consider a dedicated colonoscopy for further evaluation (pursue as outpatient). Qualifiers: Constipation type: unspecified constipation type Qualified Code(s): K59.00 - Constipation, unspecified (9) Abnormal urine findings Impression: Initial UA with RBCs, WBCs, casts, ketones, and proteinuria. Second UA does not indicate infection and does not have significant abnormal findings. Consider resolved. (10) Dehydration Impression: Improved. Patient was found down for an unknown period of time. On admission she has elevated BUN and CK, which have continued to improve since admission (BUN 17 today, Cr 0.5). Will continue to trend BMP. Essentially resolved. (11) Neglect of personal hygiene Impression: The patient was rather odiferous and unkempt upon admission. She has someone who comes to help her with her legs 3x/week, but they do not help with bathing. According to MEGHA Bond, the patient has been wheelchair-bound for some time since not following up with her recommended PT rehab after experiencing a knee injury and then a foot injury after prior falls. She reportedly "gets around okay" with her wheelchair at home, but appears to have some self neglect. According to the patient's current caregiver, Eli Rodriguez ([phone]), and former caregiver Anamaria Carrington ([phone]), the patient has not bathed in months, if not years. Eli reportedly comes every Tuesday and every other Tuesday to help the patient with doctor's appointments and with cleaning her lower legs, though she states she is not a nurse and does not have formal wound care training. Per Eli, the patient was recently seen by podiatry and started on Keflex after her right great toenail was removed 2/2 a fungal infection. Per Eli, the patient had a "RN-type caregiver" who used to come more regularly and help the patient with bathing and personal hygiene, but the patient did not like the RN and stopped seeing her two years ago. There is concern that the patient has not bathed since her last hospitalization, which was at the end of 2018. Now that her skin has improved we have reduced her bed baths and moisturizing to once daily. 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 Edie acquired 2/2 lack of routine hygiene. The skin is now clean and dry with scatt ered scabs from where the areas of dry ichthyosis were picked off by nursing. Wash with soap and water daily and apply Ammonia Lactate lotion, gently removing/picking loose tissue as able. (13) Disorganized thought process Impression: This has improved since admission, and the patient appears to be back to baseline. The patient answers most questions appropriately, but exhibits tangential, pressured speech that has been accurately described by her stepdaughter Ronda (DPOA) as "like flipping through radio stations". Apparently this is just who she is. Per Ronda and the patient's current and past caregivers, the patient has always been verbal and erratic, but this has worsened since the pandemic. Telehealth psychiatry consult indicated no psychiatric disturbance, despite her presentation of occasional delisions and hallucinations. (See HPI note) Consider resolved.
[2020-10-11] MEDS: ATORVASTATIN 40 MG TABLET PO SCH (20:37)
[2020-10-12] MEDS: SODIUM CHLORIDE FLUSH 0.9% 10 ML SYRINGE IVP SCH ×3 (00:34→18:22)
[2020-10-12] MEDS: ceFAZolin 1 GM in SODIUM CHLORIDE 0.9% MINIBAG 100 ML IV SCH ×3 (02:42→18:22)
[2020-10-12 05:08] LABS: BASOPHILS # (AUTO) 0.1 10^3/uL (0.0-0.1); BASOPHILS % (AUTO) 0.6 %; EOSINOPHILS # (AUTO) 0.4 10^3/uL (0.0-0.7); EOSINOPHILS % (AUTO) 4.6 %; HCT - HEMATOCRIT 36.8 % (37.0-47.0); HGB - HEMOGLOBIN 11.7 g/dL (12.0-16.0); LYMPHOCYTES # (AUTO) 2.1 10^3/uL (1.5-3.5); LYMPHOCYTES % (AUTO) 24.5 %; MEAN CORPUSCULAR HEMOGLOBIN 29.8 pg (27.0-31.0); MEAN CORPUSCULAR HGB CONC 31.8 g/dL (32.0-36.0); MEAN CORPUSCULAR VOLUME 93.6 fL (81.0-99.0); MEAN PLATELET VOLUME 10.3 fL (7.9-10.8); MONOCYTES # (AUTO) 0.9 10^3/uL (0.0-1.0); MONOCYTES % (AUTO) 10.2 %; NEUTROPHILS # (AUTO) 5.2 10^3/uL (1.5-6.6); NEUTROPHILS % (AUTO) 59.5 %; PLT - PLATELET COUNT 311 10^3/uL (130-450); RED BLOOD COUNT 3.93 10^6/uL (4.20-5.40); RED CELL DISTRIBUTION WIDTH 15.3 % (12.0-15.0); WHITE BLOOD COUNT 8.7 x10^3/uL (4.8-10.8)
[2020-10-12 05:16] LABS: CALCIUM 9.2 mg/dL (8.5-10.3); CREATININE 0.7 mg/dL (0.4-1.0); POTASSIUM 4.3 mmol/L (3.5-5.0)
[2020-10-12] MEDS: BRIMONIDINE TART RIGHTEYE SCH ×3 (05:32→20:44)
[2020-10-12] MEDS: BRINZOLAMIDE RIGHTEYE SCH ×3 (05:32→20:44)
[2020-10-12] MEDS: TRAVATAN Z EACHEYE SCH ×2 (07:26→20:17)
[2020-10-12] MEDS: INSULIN ASPART 300 UNIT/3 ML PEN SUBQ SCH ×4 (09:00→20:42)
[2020-10-12] MEDS: atenoloL 25 MG TABLET PO SCH (09:01)
[2020-10-12] MEDS: lisinopriL 20 MG TABLET PO SCH ×2 (09:01→20:16)
[2020-10-12] MEDS: ASPIRIN EC 81 MG TABLET PO SCH (09:01)
[2020-10-12] MEDS: amLODIPine 5 MG TABLET PO SCH (09:01)
[2020-10-12] MEDS: DOCUSATE SODIUM 250 MG CAPSULE PO SCH (09:02)
[2020-10-12] MEDS: polyethylene glycoL 3350 17 GM PACKET PO SCH (09:02)
[2020-10-12] MEDS: ENOXAPARIN 80 MG/0.8 ML SYRINGE SUBQ SCH ×2 (09:03→20:16)
[2020-10-12] MEDS: TIMOLOL 0.5% OPHTH DROPS EACHEYE SCH ×2 (09:04→20:18)
[2020-10-12] MEDS: NYSTATIN POWDER 15 GM TOP SCH ×2 (09:04→20:17)
[2020-10-12] MEDS: AMMONIUM LACTATE 227 GM BOTTLE TOP SCH ×2 (12:09→20:15)
--- NOTE | 2020-10-12 12:13 | PROVIDER PROGRESS NOTE ---
Subjective - Prog Note Date Prog Note Date: 10/12/20 - Subjective Pt reports feeling: Improved Subjective: Irritable this morning due to not getting enough sleep. Denies pain, n/v. Concerned that her voice sounds "scratchy" but denies sore throat or productive cough. Objective - Vital Signs/Intake & Output Reviewed Vital Signs: Yes Vital Signs: Vital Signs x48h Temp Pulse Resp BP Pulse Ox 10/12/20 11:06 36.7 C 68 18 134/67 H 93 10/12/20 09:00 76 154/68 H 10/12/20 07:33 36.6 C 66 16 163/60 H 93 10/12/20 05:35 36.7 C 70 16 153/72 H 93 Intake & Output: Intake & Output 10/09/20 10/10/20 10/11/20 10/12/20 23:59 23:59 23:59 23:59 Intake Total 465 1160 900 780 Output Total 994 961 5566 200 Balance -385 285 -450 580 - Objective General Appearance: positive: No acute distress, Alert, Other (Sitting up in wheelchair, slightly disheveled and tired appearing) Eyes Bilateral: positive: PERRL Eyes: OU Lid inflammation ENT: positive: ENT inspection nml, No signs of dehydration Neck: positive: Nml inspection Respiratory: positive: Chest non-tender, No respiratory distress, Breath sounds nml Cardiovascular: positive: Regular rate & rhythm Peripheral Pulses: 1+ Dorsalis pedis (R), 1+ Dorsalis pedis (L) Abdomen: positive: Non-tender, No organomegaly, Nml bowel sounds, No distention Skin: positive: Pallor, Other (stasis dermatitis of the lower legs, no warmth or erythema associated with cellulitis noted) Extremities: positive: Other (2+ edema bilaterally, dependent rubor and elevatio nal pallor bilaterally noted while sitting up in a chair) Neurologic/Psychiatric: positive: Oriented x3, CN's nml (2-12), Sensation nml - Lab Results Fish Bones: 10/12/20 04:54 10/12/20 04:54 Other Labs: Lab Results x24hrs 10/12/20 10/12/20 Range/Units 04:54 04:54 WBC 8.7 (4.8-10.8) x10^3/uL RBC 3.93 L (4.20-5.40) 10^6/uL Hgb 11.7 L (12.0-16.0) g/dL Hct 36.8 L (37.0-47.0) % MCV 93.6 (81.0-99.0) fL MCH 29.8 (27.0-31.0) pg MCHC 31.8 L (32.0-36.0) g/dL RDW 15.3 H (12.0-15.0) % Plt Count 311 (130-450) 10^3/uL MPV 10.3 (7.9-10.8) fL Neut # (Auto) 5.2 (1.5-6.6) 10^3/uL Lymph # (Auto) 2.1 (1.5-3.5) 10^3/uL [place] # (Auto) 0.9 (0.0-1.0) 10^3/uL Eos # (Auto) 0.4 (0.0-0.7) 10^3/uL Baso # (Auto) 0.1 (0.0-0.1) 10^3/uL Absolute Nucleated RBC 0.00 x10^3/uL Nucleated RBC % 0.0 /100WBC Sodium 141 (135-145) mmol/L Potassium 4.3 (3.5-5.0) mmol/L Chloride 107 (101-111) mmol/L Carbon Dioxide 26 (21-32) mmol/L Anion Gap 8.0 (6-13) BUN 17 (6-20) mg/dL Creatinine 0.7 (0.4-1.0) mg/dL Estimated GFR (MDRD) 80 L (>89) Glucose 136 H (70-100) mg/dL Calcium 9.2 (8.5-10.3) mg/dL ABX Reporting Has patient been on IV antibiotics over the past 48 hours?: Yes Sepsis Event Note (H) - Evaluation Current Stage of Sepsis: Ruled out Assessment/Plan - Problem List (1) Altered mental status Impression: Resolved. She is back to baseline. Patient was found down at home inside of her empty bathtub during a welfare check. She was down for an unknown period of time and does not remember why she was there or what had happened. She was discovered after a welfare check was called in by her caregiver. She is oriented to place, self, date/year but continues to be tangential and verbal. Describes going to a welcome home parade for servicemen/women returning from the [place] War in 1990 and after an "incident" with a lawn chair (which she is able to specifically describe) she ended up with a piriformis injury that now makes sitting in certain hard surfaced chairs difficult. It is not clear if this actually occurred or is a fictional scenario. She does not have a known history of dementia. Second UA was negative for UTI CT head was normal CXR normal Tele-psych consult states that patient displays some mild cognitive deficits with slowed mentation but does not score in the range of cognitive impairment on MMSE. Consult states that she does NOT have any signs of psychosis or roselia and appears to have medical decision-making capacity. Despite this, the patient continues to exhibit tangential speech patterns and perseverance on certain topics, including fictional scenarios that she believes are real. Qualifiers: Altered mental status type: unspecified Qualified Code(s): R41.82 - Altered mental status, unspecified (2) Elevated troponin Impression: Troponin elevated upon admission, peak level 10/09 afternoon. She denies chest pain, palpitations, or shortness of breath. Has been sinus rhythm on telemetry today. Continue telemetry. (3) NSTEMI (non-ST elevated myocardial infarction) Impression: Troponin jumped to 380.2 10/09/20, up from 99.7 10/08/20. Jumped again to 442.6 on 10/09 accompanied by tachycardia in the low 100's. Peak of 442, downtrending to 300s as of 10/10. Patient continues to deny palpitations, chest pain, dizziness, nausea. Continue aspirin. Last dose of enoxaparin was last night. Continue cardiac meds (atenolol and lisinopril). (4) Suspected deep tissue injury Impression: DTI to right heel. S/p debridement by Dr. Guevara 10/10. The tissue remains maroon and dark, non-blanching, and may be evolving to eschar. Edges are attached and there is minimal periwound erythema. No concerns for infection at this time. Pedal edema+, DP pulse palpable. She denied pain at the site. Xeroform was reapplied today per Dr. Guevara's orders. The foot was elevated on pillows as no offloading boot was available. Continue to float the heels with her legs on pillows and the heels in the air at all times while she is in bed. Wound Care per Dr. Guevara' orders: Xeroform and gauze and MILY wrap daily. Please make sure the MILY wrap extends from the base of the toes up to just below her knee so that edema is not increased above and below the wrap. She may benefit from a Wound Care consult for compression stockings. For discharge, if multi-day dressing recommendations are needed could transition the dressing to mepilex (foam border) with medihoney gel if available. This can be changed 2-3 x weekly. She should also be provided offloading boots if available, to be used when in bed to relieve pressure to the heels. (5) Decubitus ulcer of sacral region Impression: Hx of sacral pressure injury for which she was receiving care at [facility]. Admission photos show the area was pale and pink healing tissue likely aggravated while she was in the bathtub. I was not able to see the area today however nursing reports it is essentially healed. Pt was supine for quite awhile today but reports she has been trying to stay turned on her side to offload the area. Continue to turn her from side to side every 2 hours and encourage frequent repositioning when she is up in a chair. She may benefit from an alternating pressure air mattress in the future if insurance will allow at home, though she also reports having a special foam she wants to try at home for her bed. Qualifiers: Pressure injury stage: stage 2 Qualified Code(s): L89.152 - Pressure ulcer of sacral region, stage 2 (6) Raynaud's phenomenon Impression: The patient had significant cyanotic discoloration to both hands, including her palms and digits. She has sluggish capillary refill with mottling to her BUEs, though this has improved from her initial presentation. Her hands are cool to touch but are not painful. Her hands appear somewhat contracted. She does have a positive history of carpal tunnel repair. She will need an outpatient vascular referral upon discharge to further evaluate, should she wish. Qualifiers: Raynaud?s-associated gangrene presence: without gangrene Qualified Code(s): I73.00 - Raynaud's syndrome without gangrene (7) Constipation Impression: Resolved. Patient did not remember the last time she had a bowel movement, and initially presented with a very distended, full abdomen. CT confirmed a moderate amount of stool in the colon, but she has since had two large bowel movements and this appears to have improved. Continue Senna, Miralax per nursing protocol. Of note, CT abdomen also showed an apparent area of wall thickening and narrowing involving the distal descending colon w/ a differential diagnosis including long segment stricture, neoplasm, and artifact for peristalsis. Radiologist report suggests to consider a dedicated colonoscopy for further evaluation (pursue as outpatient). Qualifiers: Constipation type: unspecified constipation type Qualified Code(s): K59.00 - Constipation, unspecified (8) Abnormal urine findings Impression: Resolved. Initial UA with RBCs, WBCs, casts, ketones, and proteinuria. Second UA does not indicate infection and does not have significant abnormal findings. (9) Dehydration Impression: Resolved. Patient was found down for an unknown period of time. On admission she has elevated BUN and CK, which have continued to improve since admission (BUN 17 today, Cr 0.7). Will continue to trend BMP. (10) Neglect of personal hygiene Impression: The patient was rather odiferous and unkempt upon admission. She has someone who comes to help her with her legs 3x/week, but they do not help with bathing. According to MEGHA Bond, the patient has been wheelchair-bound for some time since not following up with her recommended PT rehab after experiencing a knee injury and then a foot injury after prior falls. She reportedly "gets around okay" with her wheelchair at home, but appears to have some self neglect. According to the patient's current caregiver, Eli Rodriguez ([phone]), and former caregiver Anamaria Carrington ([phone]), the patient has not bathed in months, if not years. Eli reportedly comes every Tuesday and every other Tuesday to help the patient with doctor's appointments and with cleaning her lower legs, though she states she is not a nurse and does not have formal wound care training. Per Eli, the patient was recently seen by podiatry and started on Keflex after her right great toenail was removed 2/2 a fungal infection. Per Eli, the patient had a "RN-type caregiver" who used to come more regularly and help the patient with bathing and personal hygiene, but the barry ent did not like the RN and stopped seeing her two years ago. There is concern that the patient has not bathed since her last hospitalization, which was at the end of 2018. Nursing has been providing daily to twice daily bed baths this admission and her skin is greatly improved. Bed baths were reduced to once daily with moisturizer also applied. (11) Acquired ichthyosis Impression: Resolved. This has essentially resolved after excellent care by the nursing staff. Likely acquired 2/2 lack of routine hygiene. The skin is now clean and dry with scattered scabs from where the areas of dry ichthyosis were picked off by nursing. Wash with soap and water daily and apply Ammonia Lactate lotion, gently removing/picking loose tissue as able. (12) Disorganized thought process Impression: Resolved. This has improved since admission, and the patient appears to be back to baseline. The patient answers most questions appropriately, but exhibits tangential, pressured speech that has been accurately described by her stepdaughter Ronda (DPOA) as "like flipping through radio stations". Apparently this is just who she is. Per Ronda and the patient's current and past caregivers, the patient has always been verbal and erratic, but this has worsened since the pandemic. Telehealth psychiatry consult indicated no psychiatric disturbance, despite her presentation of occasional delisions and hallucinations. (See HPI note) (13) Cellulitis Impression: Resolved. She was started on empiric abx 10/09 after her legs were noted to be swollen, pink and tender. WBC has remained normal but there was concern for localized cellulitis (R>L). Now that the ichthiosis has for the most part resolved her skin is clearer. While there is light pink discoloration along both shins I think it may be more likely that this is stasis dermatitis rather than cellulitis. She has notable dependent rubor and elevational pallor while sitting up in the chair today and no clear signs of cellulitis. Abx will be stopped today as her WBC remains normal. Continue to wash daily and elevate the legs. Qualifiers: Site of cellulitis of extremity: lower extremity Laterality: right
[2020-10-12] MEDS: ATORVASTATIN 40 MG TABLET PO SCH (20:16)
[2020-10-13] MEDS: ceFAZolin 1 GM in SODIUM CHLORIDE 0.9% MINIBAG 100 ML IV SCH ×2 (01:32→09:12)
[2020-10-13] MEDS: SODIUM CHLORIDE FLUSH 0.9% 10 ML SYRINGE IVP SCH ×3 (01:32→20:33)
[2020-10-13] MEDS: BRIMONIDINE TART RIGHTEYE SCH ×3 (05:05→21:34)
[2020-10-13] MEDS: BRINZOLAMIDE RIGHTEYE SCH ×3 (05:05→21:34)
[2020-10-13 05:28] LABS: BASOPHILS # (AUTO) 0.1 10^3/uL (0.0-0.1); BASOPHILS % (AUTO) 0.6 %; EOSINOPHILS # (AUTO) 0.5 10^3/uL (0.0-0.7); EOSINOPHILS % (AUTO) 5.5 %; HGB - HEMOGLOBIN 11.2 g/dL (12.0-16.0); LYMPHOCYTES % (AUTO) 23.4 %; MEAN CORPUSCULAR HEMOGLOBIN 29.4 pg (27.0-31.0); MEAN CORPUSCULAR HGB CONC 31.1 g/dL (32.0-36.0); MEAN CORPUSCULAR VOLUME 94.5 fL (81.0-99.0); MEAN PLATELET VOLUME 10.6 fL (7.9-10.8); MONOCYTES % (AUTO) 11.2 %; NEUTROPHILS % (AUTO) 58.4 %; PLT - PLATELET COUNT 291 10^3/uL (130-450); RED BLOOD COUNT 3.81 10^6/uL (4.20-5.40); RED CELL DISTRIBUTION WIDTH 15.4 % (12.0-15.0); WHITE BLOOD COUNT 8.6 x10^3/uL (4.8-10.8)
[2020-10-13 05:38] LABS: CREATININE 0.6 mg/dL (0.4-1.0); POTASSIUM 4.1 mmol/L (3.5-5.0)
[2020-10-13] MEDS: ASPIRIN EC 81 MG TABLET PO SCH (09:08)
[2020-10-13] MEDS: INSULIN ASPART 300 UNIT/3 ML PEN SUBQ SCH ×4 (09:08→20:26)
[2020-10-13] MEDS: SENNA 8.6 MG TABLET PO SCH (09:09)
[2020-10-13] MEDS: DOCUSATE SODIUM 250 MG CAPSULE PO SCH (09:09)
[2020-10-13] MEDS: atenoloL 25 MG TABLET PO SCH (09:10)
[2020-10-13] MEDS: amLODIPine 5 MG TABLET PO SCH (09:10)
[2020-10-13] MEDS: ENOXAPARIN 80 MG/0.8 ML SYRINGE SUBQ SCH ×2 (09:11→20:35)
[2020-10-13] MEDS: lisinopriL 20 MG TABLET PO SCH ×2 (09:11→20:30)
[2020-10-13] MEDS: polyethylene glycoL 3350 17 GM PACKET PO SCH (09:11)
[2020-10-13] MEDS: TIMOLOL 0.5% OPHTH DROPS EACHEYE SCH ×2 (09:13→20:42)
--- NOTE | 2020-10-13 11:38 | PROVIDER PROGRESS NOTE ---
Subjective - Prog Note Date Prog Note Date: 10/13/20 Prog Note Time: 11:40 - Subjective Pt reports feeling: No change Subjective: She is a ramon, talkative lady. Tangential speaker. 1 idea leads to another idea which leads to another idea so she never really quite completes her thought process. You could be talking about food from World War II to the latest news within a matter of 3 sentences. She says that she is relatively comfortable. Has her aches and pains. Very difficult to mobilize her. We are using a Gaby lift to get her to at least get out of bed. Once she can get out of bed and into a wheelchair she was able to use her feet to propel the wheelchair in the room. She is able to roll herself a little bit in bed. But she needs max assist to be able to sit up and to stand. The redness of her legs has been improving , We thought at first we were treating cellulitis. As we look at them over the last couple of days, it may be stasis dermatitis. Current Medications - Current Medications Current Medications: Active Medications Acetaminophen (Acetaminophen 325 Mg Tablet) 650 mg PO Q4HR PRN PRN Reason: Pain 1 to 4 Amlodipine Besylate (Amlodipine 5 Mg Tablet) 10 mg PO DAILY [facility] Last Admin: 10/13/20 09:10 Dose: 10 mg Documented by: Aspirin (Aspirin Ec 81 Mg Tablet) 81 mg PO DAILY [facility] Last Admin: 10/13/20 09:08 Dose: 81 mg Documented by: Atenolol (Atenolol 25 Mg Tablet) 50 mg PO DAILY [facility] Last Admin: 10/13/20 09:10 Dose: 50 mg Documented by: Atorvastatin Calcium (Atorvastatin 40 Mg Tablet) 40 mg PO QPM [facility] Last Admin: 10/12/20 20:16 Dose: 40 mg Documented by: Bisacodyl (Bisacodyl 10 Mg Supp) 10 mg KS DAILY PRN PRN Reason: Constipation Last Admin: 10/09/20 00:10 Dose: 10 mg Documented by: Docusate Sodium (Docusate Sodium 250 Mg Capsule) 250 - 500 mg PO DAILY [facility] Last Admin: 10/13/20 09:09 Dose: 500 mg Documented by: Enoxaparin Sodium (Enoxaparin 80 Mg/0.8 Ml Syringe) 80 mg SUBQ BID [facility] Last Admin: 10/13/20 09:11 Dose: 80 mg Documented by: Insulin Aspart (Insulin Aspart 300 Unit/3 Ml Pen) 2 - 10 unit SUBQ 0800,1200,1700,2100 [facility]; Protocol Last Admin: 10/13/20 09:08 Dose: Not Given Documented by: Lactic Acid (Ammonium Lactate 227 Gm Bottle) 1 gm TOP BID [facility] Last Admin: 10/12/20 20:15 Dose: 1 gm Documented by: Latanoprost (Latanoprost 0.005% Ophth Drops) 1 drops EACHEYE QPM [facility] Lisinopril (Lisinopril 20 Mg Tablet) 20 mg PO BID [facility] Last Admin: 10/13/20 09:11 Dose: 20 mg Documented by: Nystatin (Nystatin Powder 15 Gm) 1 applic TOP BID [facility] Last Admin: 10/12/20 20:17 Dose: 1 applic Documented by: Ondansetron HCl (Ondansetron Odt 4 Mg Tablet) 4 mg TL Q6HR PRN PRN Reason: Nausea / Vomiting Ondansetron HCl (Ondansetron 4 Mg/2 Ml Vial) 4 mg IVP Q6HR PRN PRN Reason: Nausea / Vomiting Oxycodone HCl (Oxycodone 5 Mg Tablet) 5 mg PO Q4HR PRN PRN Reason: Pain 5 to 7 Patient Own Brinzolamide/Brimonidine Tart [ Simbrinza 1%-0.2% Eye Drops 1 each RIGHTEYE TID [facility] Last Admin: 10/13/20 05:05 Dose: 1 each Documented by: Polyethylene Glycol (Polyethylene Glycol 3350 17 Gm Packet) 17 gm PO DAILY [facility] Last Admin: 10/13/20 09:11 Dose: 17 gm Documented by: Senna (Senna 8.6 Mg Tablet) 8.6 - 17.2 mg PO DAILY [facility] Last Admin: 10/13/20 09:09 Dose: 17.2 mg Documented by: Sodium Chloride (Sodium Chloride Flush 0.9% 10 Ml Syringe) 10 ml IVP PRN PRN PRN Reason: NEEDED PER PROVIDER ORDERS Last Admin: 10/11/20 12:01 Dose: 10 ml Documented by: Sodium Chloride (Sodium Chloride Flush 0.9% 10 Ml Syringe) 10 ml IVP 0100,0900,1700 [facility] Last Admin: 10/13/20 09:12 Dose: 10 ml Documented by: Timolol Maleate (Timolol 0.5% Ophth Drops) 1 drops EACHEYE BID [facility] Last Admin: 10/13/20 09:13 Dose: 1 drops Documented by: Aspirin [Aspir-Low] 81 mg PO DAILY 01/07/16 Atenolol 50 mg PO DAILY 01/07/16 Lisinopril 20 mg PO BID 01/07/16 Insulin Glargine,Hum.rec.anlog [Lantus] 45 unit SQ QPM 07/15/16 Simvastatin 20 mg PO QPM 11/30/16 Timolol 0.5% Ophth Drops [Timoptic 0.5% Ophth Drops] 1 drops EACHEYE BID 1 amLODIPine [Norvasc] 5 mg DAILY 11/30/16 metFORMIN [Glucophage] 1,275 mg PO DAILY 11/30/16 Multivit-Min/Iron/Folic Acid/K [Multi-Day Plus Minerals Tablet] 1 tab PO DAILY 02/07/17 Brinzolamide/Brimonidine Tart [Simbrinza 1%-0.2% Eye Drops] 1 drops RIGHTEYE TID 10/07/20 metFORMIN [Glucophage] 850 mg PO QPM 10/07/20 Objective - Vital Signs/Intake & Output Reviewed Vital Signs: Yes Vital Signs: Vital Signs x48h Temp Pulse Resp BP BP Pulse Ox 10/13/20 09:10 74 160/75 H 10/13/20 08:58 36.9 C 70 16 177/63 H 95 10/13/20 05:03 36.6 C 69 17 161/67 H 92 Intake & Output: Intake & Output 10/10/20 10/11/20 10/12/20 10/13/20 23:59 23:59 23:59 23:59 Intake Total 8638 021 9501 320 Output Total 875 1350 1300 350 Balance 285 -450 760 -30 - Objective General Appearance: positive: Alert, Other (Morbidly obese 5 foot 6 inch female who weighs 79.5 kg. A talker. Perfectly content to lay in bed. Gesticulates with her hands. Loves having company.) Eyes Bilateral: positive: PERRL, EOMI ENT: positive: No signs of dehydration Neck: positive: No JVD, Other (Thick neck. Really unable to assess for JVD.). negative: Stiff neck Respiratory: positive: No respiratory distress, Other (Breath sounds significantly diminished at the bases but she has shallow, unlabored respiration. No shortness of breath with speaking.). negative: Wheezes, Rales, Rhonchi Cardiovascular: positive: Regular rate & rhythm. negative: Systolic murmur, Gallop/S4, Friction rub Abdomen: positive: Non-tender, Nml bowel sounds, No distention, Other (Unable to assess for organomegaly because of the size of her pannus. But no masses palpable. The Michaelle intertrigo underneath her pannus is much improved from admission to today.) Skin: positive: Warm, Dry, Other (Punctate red areas of irritation over her lower extremities. Again, I cannot express how good of a job the nurses of done with her. She was covered in an thick yellow crustiness from neck down to legs. After bathing her, her skin looks so much better.) Extremities: positive: Full ROM, Pedal edema Neurologic/Psychiatric: positive: Oriented x3, CN's nml (2-12), Motor nml (but she can't support herself due to generalized weakness. needs Gaby lift, and max assit to luanne her but she can propel using her feet once in wheelchair) - Lab Results Fish Bones: 10/13/20 04:55 10/13/20 04:55 Other Labs: Lab Results x24hrs 10/13/20 10/13/20 Range/Units 04:55 04:55 WBC 8.6 (4.8-10.8) x10^3/uL RBC 3.81 L (4.20-5.40) 10^6/uL Hgb 11.2 L (12.0-16.0) g/dL Hct 36.0 L (37.0-47.0) % MCV 94.5 (81.0-99.0) fL MCH 29.4 (27.0-31.0) pg MCHC 31.1 L (32.0-36.0) g/dL RDW 15.4 H (12.0-15.0) % Plt Count 291 (130-450) 10^3/uL MPV 10.6 (7.9-10.8) fL Neut # (Auto) 5.0 (1.5-6.6) 10^3/uL Lymph # (Auto) 2.0 (1.5-3.5) 10^3/uL [place] # (Auto) 1.0 (0.0-1.0) 10^3/uL Eos # (Auto) 0.5 (0.0-0.7) 10^3/uL Baso # (Auto) 0.1 (0.0-0.1) 10^3/uL Absolute Nucleated RBC 0.00 x10^3/uL Nucleated RBC % 0.0 /100WBC Sodium 140 (135-145) mmol/L Potassium 4.1 (3.5-5.0) mmol/L Chloride 106 (101-111) mmol/L Carbon Dioxide 26 (21-32) mmol/L Anion Gap 8.0 (6-13) BUN 17 (6-20) mg/dL Creatinine 0.6 (0.4-1.0) mg/dL Estimated GFR (MDRD) 96 (>89) Glucose 137 H (70-100) mg/dL Calcium 9.0 (8.5-10.3) mg/dL ABX Reporting Has patient been on IV antibiotics over the past 48 hours?: Yes Sepsis Event Note (H) - Evaluation Current Stage of Sepsis: Ruled out Assessment/Plan - Problem List (1) 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 At home she does not check her sugars more than twice a week. And she was taking Lantus 45 units in the evening, metformin, and since being here, she is not needed the Lantus. She is on short acting insulin, 2 units at most, maybe 2 or 3 times a day. A1c is 5.9% on the and the . I am suspicious that part of her metabolic encephalopathy was being severely hypoglycemic for days at a time. Plan: When she is discharged, she will go home on Metformin and not much more than that. (2) Altered mental status Impression: Resolved. She is back to baseline. Patient was found down at home inside of her empty bathtub during a welfare check. She was down for an unknown period of time and does not remember why she was there or what had happened. She was discovered after a welfare check was called in by her caregiver. She is oriented to place, self, date/year but continues to be tangential and verbal. 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 It is not clear if this actually occurred or is a fictional scenario. She does not have a known history of dementia. Second UA was negative for UTI CT head was normal CXR normal Tele-psych consult states that patient displays some mild cognitive deficits with slowed mentation but does not score in the range of cognitive impairment on MMSE. Consult states that she does NOT have any signs of psychosis or roselia and appears to have medical decision-making capacity. Despite this, the patient continues to exhibit tangential speech patterns and perseverance on certain topics, including fictional scenarios that she believes are real. Due to her lack of mobility, we are hoping to discharge her to a alf facility once a bed opens up. Qualifiers: Altered mental status type: unspecified Qualified Code(s): R41.82 - Altered mental status, unspecified (3) NSTEMI (non-ST elevated myocardial infarction) resolved Impression: Troponin jumped to 380.2 10/09/20, up from 99.7 10/08/20. Jumped again to 442.6 on 10/09 accompanied by tachycardia in the low 100's. Peak of 442, downtrending to 300s as of 10/10. Patient continues to deny palpitations, chest pain, dizziness, nausea. Continue aspirin. Last dose of enoxaparin was last night. Continue cardiac meds (atenolol and lisinopril). (4) Suspected deep tissue injury Impression: DTI to right heel. S/p debridement by Dr. Guevara 10/10. The tissue remains maroon and dark, non-blanching, and may be evolving to eschar. Edges are attached and there is minimal periwound erythema. No concerns for infection at this time. Pedal edema+, DP pulse palpable. She denied pain at the site. Xeroform was reapplied today per Dr. Guevara's orders. The foot was elevated on pillows as no offloading boot was available. we plan to Continue to float the heels with her legs on pillows and the heels in the air at all times while she is in bed. Continue Wound Care per Dr. Guevara' orders: Xeroform and gauze and MILY wrap daily. Please make sure the MILY wrap extends from the base of the toes up to just below her knee so that edema is not increased above and below the wrap. S he may benefit from a Wound Care consult for compression stockings. Physical therapy states there are zipped up stocking that could be used instead. For discharge, if multi-day dressing recommendations are needed could transition the dressing to mepilex (foam border) with medihoney gel if available. This can be changed 2-3 x weekly. She should also be provided offloading boots if available, to be used when in bed to relieve pressure to the heels. (5) Decubitus ulcer of sacral region Impression: Hx of sacral pressure injury for which she was receiving care at [facility]. Admission photos show the area was pale and pink healing tissue likely aggr avated while she was in the bathtub. I was not able to see the area today however nursing reports it is essentially healed. Pt was supine for quite awhile today but reports she has been trying to stay turned on her side to offload the area. Continue to turn her from side to side every 2 hours and encourage frequent repositioning when she is up in a chair. She may benefit from an alternating pressure air mattress in the future if insurance will allow at home, though she also reports having a special foam she wants to try at home for her bed. Qualifiers: Pressure injury stage: stage 2 Qualified Code(s): L89.152 - Pressure ulcer of sacral region, stage 2 (6) Raynaud's phenomenon Impression: The patient had significant cyanotic discoloration to both hands, including her palms and digits. this is an improvement form admission where the cyanotic discoloration extended up the forearms to the elbows. She has sluggish capillary refill with mottling to her BUEs, though this has improved from her initial presentation. Her hands are cool to touch but are not painful. Her hands appear somewhat contracted. She does have a positive history of carpal tunnel repair. She will need an outpatient vascular referral upon discharge to further evaluate, should she wish. Qualifiers: Raynaud?s-associated gangrene presence: without gangrene Qualified Code(s): I73.00 - Raynaud's syndrome without gangrene (7) Constipation resolved Impression: Resolved. Patient did not remember the last time she had a bowel movement, and initially presented with a very distended, full abdomen. CT confirmed a moderate amount of stool in the colon, but she has since had two large bowel movements and this appears to have improved. Continue Senna, Miralax per nursing protocol. Of note, CT abdomen also showed an apparent area of wall thickening and narrowing involving the distal descending colon w/ a differential diagnosis including long segment stricture, neoplasm, and artifact for peristalsis. Radiologist report suggests to consider a dedicated colonoscopy for further evaluation (pursue as outpatient). Qualifiers: Constipation type: unspecified constipation type Qualified Code(s): K59.00 - Constipation, unspecified (8) Abnormal urine findings Impression: Resolved. Initial UA with RBCs, WBCs, casts, ketones, and proteinuria. Second UA does not indicate infection and does not have significant abnormal findings. (9) Dehydration resolved Impression: Resolved. Patient was found down for an unknown period of time. On admission she has elevated BUN and CK, which have continued to improve since admission (BUN 17 today, Cr 0.7). Will continue to trend BMP. (10) Neglect of personal hygiene resolved Impression: The patient was rather odiferous and unkempt upon admission. She has someone who comes to help her with her legs 3x/week, but they do not help with bathing. Acc ording to MEGHA Bond, the patient has been wheelchair-bound for some time since not following up with her recommended PT rehab after experiencing a knee injury and then a foot injury after prior falls. She reportedly "gets around okay" with her wheelchair at home, but appears to have some self neglect. According to the patient's current caregiver, Eli Mcihael ([phone]), and former caregiver Anamaria Carrington ([phone]), the patient has not bathed in months, if not years. Eli reportedly comes every Tuesday and every other Tuesday to help the patient with doctor's appointments and with cleaning her lower legs, though she states she is not a nurse and does not have formal wound care training. Per Eli, the patient was recently seen by podiatry and started on Keflex after her right great toenail was removed 2/2 a fungal infection. Per Eli, the patient had a "RN-type caregiver" who used to come more regularly and help the patient with bathing and personal hygiene, but the patient did not like the RN and stopped seeing her two years ago. There is concern that the patient has not bathed since her last hospitalization, which was at the end of 2018. Nursing has been providing daily to twice daily bed baths this admission and her skin is greatly improved. Bed baths were reduced to once daily with moisturizer also applied. 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 This has essentially resolved after excellent care by the nursing staff. Likely acquired 2/2 lack of routine hygiene. The skin is now clean and dry with scattered scabs from where the areas of dry ichthyosis were picked off by nursing. Wash with soap and water daily and apply Ammonia Lactate lotion, gently removing/picking loose tissue as able. (12) Disorganized thought process Impression: Resolved. This has improved since admission, and the patient appears to be back to baseline. The patient answers most questions appropriately, but exhibits tangential, pressured speech that has been accurately described by her stepdaughter Ronda (DPOA) as "like flipping through radio stations". Apparently this is just who she is. Per Ronda and the patient's current and past caregivers, the patient has always been verbal and erratic, but this has worsened since the pandemic. Telehealth psychiatry consult indicated no psychiatric disturbance, despite her presentation of occasional delisions and hallucinations. (See HPI note) (13) Cellulitis Impression: Resolved. She was started on empiric abx 10/09 after her legs were noted to be swollen, pink and tender. WBC has remained normal but there was concern for localized cellulitis (R>L). Now that the ichthiosis has for the most part resolved her skin is clearer. While there is light pink discoloration along both shins we think it may be more likely that this is stasis dermatitis rather than cellulitis. She has notable dependent rubor and elevational pallor while sitting up in the chair 10/12 and no clear signs of cellulitis. Abx will be stopped as her WBC remains normal. Continue to wash daily and elevate the legs. Qualifiers: Site of cellulitis of extremity: lower extremity Laterality: right Qualifiers: Qualified Code(s): R41.82 - Altered mental status, unspecified
[2020-10-13] MEDS: NYSTATIN POWDER 15 GM TOP SCH ×2 (13:25→20:29)
[2020-10-13] MEDS: AMMONIUM LACTATE 227 GM BOTTLE TOP SCH ×2 (13:25→20:30)
[2020-10-13] MEDS: LATANOPROST 0.005% OPHTH DROPS EACHEYE SCH (20:29)
[2020-10-13] MEDS: ATORVASTATIN 40 MG TABLET PO SCH (20:30)
[2020-10-14] MEDS: SODIUM CHLORIDE FLUSH 0.9% 10 ML SYRINGE IVP SCH ×3 (00:27→17:44)
[2020-10-14] MEDS: BRINZOLAMIDE RIGHTEYE SCH ×3 (04:50→20:58)
[2020-10-14] MEDS: BRIMONIDINE TART RIGHTEYE SCH ×3 (04:50→20:58)
[2020-10-14 05:04] LABS: BASOPHILS # (AUTO) 0.1 10^3/uL (0.0-0.1); BASOPHILS % (AUTO) 0.7 %; EOSINOPHILS # (AUTO) 0.4 10^3/uL (0.0-0.7); EOSINOPHILS % (AUTO) 4.1 %; HCT - HEMATOCRIT 35.2 % (37.0-47.0); HGB - HEMOGLOBIN 11.1 g/dL (12.0-16.0); LYMPHOCYTES % (AUTO) 21.5 %; MEAN CORPUSCULAR HEMOGLOBIN 29.6 pg (27.0-31.0); MEAN CORPUSCULAR HGB CONC 31.5 g/dL (32.0-36.0); MEAN CORPUSCULAR VOLUME 93.9 fL (81.0-99.0); MEAN PLATELET VOLUME 10.4 fL (7.9-10.8); NEUTROPHILS # (AUTO) 5.8 10^3/uL (1.5-6.6); NEUTROPHILS % (AUTO) 61.8 %; PLT - PLATELET COUNT 319 10^3/uL (130-450); RED BLOOD COUNT 3.75 10^6/uL (4.20-5.40); RED CELL DISTRIBUTION WIDTH 15.4 % (12.0-15.0); WHITE BLOOD COUNT 9.4 x10^3/uL (4.8-10.8)
[2020-10-14 05:13] LABS: CALCIUM 8.9 mg/dL (8.5-10.3); CREATININE 0.7 mg/dL (0.4-1.0); POTASSIUM 3.9 mmol/L (3.5-5.0)
[2020-10-14] MEDS: DOCUSATE SODIUM 250 MG CAPSULE PO SCH (09:05)
[2020-10-14] MEDS: INSULIN ASPART 300 UNIT/3 ML PEN SUBQ SCH ×4 (09:05→20:52)
[2020-10-14] MEDS: polyethylene glycoL 3350 17 GM PACKET PO SCH (09:06)
[2020-10-14] MEDS: ASPIRIN EC 81 MG TABLET PO SCH (09:06)
[2020-10-14] MEDS: atenoloL 25 MG TABLET PO SCH (09:06)
[2020-10-14] MEDS: SENNA 8.6 MG TABLET PO SCH (09:06)
[2020-10-14] MEDS: ENOXAPARIN 80 MG/0.8 ML SYRINGE SUBQ SCH ×2 (09:07→20:52)
[2020-10-14] MEDS: lisinopriL 20 MG TABLET PO SCH ×2 (09:07→20:52)
[2020-10-14] MEDS: amLODIPine 5 MG TABLET PO SCH (09:07)
[2020-10-14] MEDS: AMMONIUM LACTATE 227 GM BOTTLE TOP SCH ×2 (09:08→18:42)
[2020-10-14] MEDS: TIMOLOL 0.5% OPHTH DROPS EACHEYE SCH ×2 (09:08→20:54)
[2020-10-14] MEDS: NYSTATIN POWDER 15 GM TOP SCH ×2 (09:08→18:48)
--- NOTE | 2020-10-14 13:12 | PROVIDER PROGRESS NOTE ---
Subjective - Prog Note Date Prog Note Date: 10/14/20 Prog Note Time: 13:08 (seen earlier today ~ 10a) - Subjective Pt reports feeling: Improved (no complaints,insists she has a distinct recall of how she wound up in the tub, gave an elaborate story of a chrome bar (fall bar) and that she was cleaning the bathroom and tried to hold on to this bar that her had installed) Current Medications - Current Medications Current Medications: Active Medications Generic Name Dose Route Start Last Admin Trade Name Freq PRN Reason Stop Dose Admin Acetaminophen 650 mg 10/07/20 14:06 Acetaminophen 325 Mg Tablet PO Q4HR PRN Pain 1 to 4 Amlodipine Besylate 10 mg 10/11/20 09:00 10/14/20 09:07 Amlodipine 5 Mg Tablet PO 10 mg DAILY NANCY Administration Aspirin 81 mg 10/08/20 09:00 10/14/20 09:06 Aspirin Ec 81 Mg Tablet PO 81 mg DAILY NANCY Administration Atenolol 50 mg 10/08/20 09:00 10/14/20 09:06 Atenolol 25 Mg Tablet PO 50 mg DAILY NANCY Administration Atorvastatin Calcium 40 mg 10/09/20 16:41 10/14/20 20:52 Atorvastatin 40 Mg Tablet PO 40 mg QPM NANCY Administration Bisacodyl 10 mg 10/08/20 17:47 10/09/20 00:10 Bisacodyl 10 Mg Supp AR 10 mg DAILY PRN Administration Constipation Docusate Sodium 250 - 500 mg 10/08/20 09:00 10/14/20 09:05 Docusate Sodium 250 Mg Capsule PO 250 mg DAILY NANCY Administration Enoxaparin Sodium 80 mg 10/09/20 21:00 10/14/20 20:52 Enoxaparin 80 Mg/0.8 Ml Syringe SUBQ 80 mg BID NANCY Administration Insulin Aspart 2 - 10 unit 10/10/20 12:00 10/14/20 20:52 Insulin Aspart 300 Unit/3 Ml Pen SUBQ 2 unit 0800,1200,1700,2100 NANCY Administration Protocol Lactic Acid 1 gm 10/09/20 10:30 10/14/20 18:42 Ammonium Lactate 227 Gm Bottle TOP 1 gm BID NANCY Administration Latanoprost 1 drops 10/13/20 21:00 10/14/20 20:54 Latanoprost 0.005% Ophth Drops EACHEYE 1 drops QPM NANCY Administration Lisinopril 20 mg 10/08/20 09:00 10/14/20 20:52 Lisinopril 20 Mg Tablet PO 20 mg BID NANCY Administration Nystatin 1 applic 10/07/20 21:00 10/14/20 18:48 Nystatin Powder 15 Gm TOP 1 applic BID NANCY Administration Ondansetron HCl 4 mg 10/07/20 14:06 Ondansetron Odt 4 Mg Tablet TL Q6HR PRN Nausea / Vomiting Ondansetron HCl 4 mg 10/07/20 14:06 Ondansetron 4 Mg/2 Ml Vial IVP Q6HR PRN Nausea / Vomiting Oxycodone HCl 5 mg 10/07/20 14:06 Oxycodone 5 Mg Tablet PO Q4HR PRN Pain 5 to 7 Patient Own 1 each 10/08/20 14:00 10/15/20 06:23 Brinzolamide/ RIGHTEYE 1 each Brimonidine Tart [ TID NANCY Administration Simbrinza 1%-0.2% Eye Drops Polyethylene Glycol 17 gm 10/08/20 09:00 10/14/20 09:06 Polyethylene Glycol 3350 17 Gm Packet PO 17 gm DAILY NANCY Administration Senna 8.6 - 17.2 mg 10/13/20 08:00 10/14/20 09:06 Senna 8.6 Mg Tablet PO 8.6 mg DAILY NANCY Administration Sodium Chloride 10 ml 10/07/20 14:06 10/11/20 12:01 Sodium Chloride Flush 0.9% 10 Ml Syringe IVP 10 ml PRN PRN Administration NEEDED PER PROVIDER ORDERS Sodium Chloride 10 ml 10/07/20 17:00 10/15/20 00:17 Sodium Chloride Flush 0.9% 10 Ml Syringe IVP 10 ml 0100,0900,1700 NANCY Administration Timolol Maleate 1 drops 10/08/20 09:00 10/14/20 20:54 Timolol 0.5% Ophth Drops EACHEYE 1 drops BID NANCY Administration Aspirin [Aspir-Low] 81 mg PO DAILY 01/07/16 Atenolol 50 mg PO DAILY 01/07/16 Lisinopril 20 mg PO BID 01/07/16 Insulin Glargine,Hum.rec.anlog [Lantus] 45 unit SQ QPM 07/15/16 Simvastatin 20 mg PO QPM 10/10/17 Timolol 0.5% Ophth Drops [Timoptic 0.5% Ophth Drops] 1 drops EACHEYE BID 11/30/16 amLODIPine [Norvasc] 5 mg DAILY 11/30/16 metFORMIN [Glucophage] 1,275 mg PO DAILY 11/30/16 Multivit-Min/Iron/Folic Acid/K [Multi-Day Plus Minerals Tablet] 1 tab PO DAILY 02/07/17 Brinzolamide/Brimonidine Tart [Simbrinza 1%-0.2% Eye Drops] 1 drops RIGHTEYE TID 10/07/20 metFORMIN [Glucophage] 850 mg PO QPM 10/07/20 Objective - Vital Signs/Intake & Output Vital Signs: Vital Signs x48h Temp Pulse Resp BP Pulse Ox 10/14/20 07:20 36.6 C 68 16 149/55 H 96 Intake & Output: Intake & Output 10/11/20 10/12/20 10/13/20 10/14/20 23:59 23:59 23:59 23:59 Intake Total 900 2060 796 240 Output Total 1350 1300 1700 75 Balance -450 760 -904 165 - Objective General Appearance: positive: No acute distress, Alert (tangential, very tangential overly detailed descriptions of her thoughts and questions, but cooperative), Other (disheveled hair) Eyes Bilateral: positive: Normal inspection Respiratory: positive: Chest non-tender, No respiratory distress, Breath sounds nml Cardiovascular: positive: Regular rate & rhythm, No murmur Abdomen: positive: Non-tender, No organomegaly, Nml bowel sounds (generous abdomen) Skin: positive: No rash, Dry, Other (photos from 10/12 wound viewed; (Mepilex currently intact; ~4.5x 5.5 cm shallow ulcer w/ bruner eschar at deepest, some slough, surrounding beefy pink. Heels not seen) Extremities: positive: Other (mild erythema bilaterally R>L, mild blanching,nontender,no weeping) Neurologic/Psychiatric: positive: Oriented x3, CN's nml (2-12). negative: Motor nml (seen earlier rolled on side for diaper change, not helping much w/ rolling. Later up on commode, per RN and PT HEAVY assist of 2. Is able to keep self upright, no leaning), Facial droop, Slurred/abnml speech, Depressed mood/affect - Lab Results Fish Bones: 10/14/20 04:36 10/14/20 04:36 Other Labs: Lab Results x24hrs 10/14/20 10/14/20 Range/Units 04:36 04:36 WBC 9.4 (4.8-10.8) x10^3/uL RBC 3.75 L (4.20-5.40) 10^6/uL Hgb 11.1 L (12.0-16.0) g/dL Hct 35.2 L (37.0-47.0) % MCV 93.9 (81.0-99.0) fL MCH 29.6 (27.0-31.0) pg MCHC 31.5 L (32.0-36.0) g/dL RDW 15.4 H (12.0-15.0) % Plt Count 319 (130-450) 10^3/uL MPV 10.4 (7.9-10.8) fL Neut # (Auto) 5.8 (1.5-6.6) 10^3/uL Lymph # (Auto) 2.0 (1.5-3.5) 10^3/uL [place] # (Auto) 1.0 (0.0-1.0) 10^3/uL Eos # (Auto) 0.4 (0.0-0.7) 10^3/uL Baso # (Auto) 0.1 (0.0-0.1) 10^3/uL Absolute Nucleated RBC 0.00 x10^3/uL Nucleated RBC % 0.0 /100WBC Sodium 136 (135-145) mmol/L Potassium 3.9 (3.5-5.0) mmol/L Chloride 103 (101-111) mmol/L Carbon Dioxide 26 (21-32) mmol/L Anion Gap 7.0 (6-13) BUN 20 (6-20) mg/dL Creatinine 0.7 (0.4-1.0) mg/dL Estimated GFR (MDRD) 80 L (>89) Glucose 127 H (70-100) mg/dL Calcium 8.9 (8.5-10.3) mg/dL Sepsis Event Note (H) - Evaluation Current Stage of Sepsis: Ruled out Assessment/Plan - Problem List (1) Diabetes mellitus with complication Impression: Problem List PHas not needed insulin since stopping insulin. Will continue to monitor whether ANY agent needed considering the hypoglycemia on presentation and A1C 5.9 Plan; on discharge she will at most be on metformin. No indication for insulin 10/13(Presented after after being found down in her tub, hypothermic and hypoglycemic. Had been on Lantus 45 units qpm and metformin. At home she does not check her sugars more than twice a week.Since admission she has not needed much sliding scale insulin. She has gotten2 units at most, maybe 2 or 3 times a day. A1c is 5.9% . Her metabolic encephalopathy and on the and the . I am suspicious that part of her metabolic encephalopathy was being severely hypoglycemic for days at a time. (2) Altered mental status Impression: Resolved. She is back to baseline. (which is tangential pressured speech) (3) NSTEMI (non-ST elevated myocardial infarction) resolved Impression: Stable, on ASA and atenolol, ACEI and statin In setting of tachycardia ~ 100's on 10/09 Troponin jumped to 380.2 10/09/20, up from 99.7 10/08/20. Jumped again to 442.6 on 10/09 100's. Peak of 442, downtrending to 300s as of 10/10. Asymptomatic at time of event. Completed therapeutic lovenox. ? Outpatient cath (4) Suspected deep tissue injury Impression: DTI to right heel. S/p debridement by Dr. Guevara 10/10. Dressings intact; vasoline (xeroform) gauze w/ mily bandage daily and float heels when in bed Has vascular insufficiency as baseline contributor and poor mobility 10/13The tissue remains maroon and dark, non-blanching, and may be evolving to eschar. Edges are attached and there is minimal periwound erythema. No concerns for infection at this time. Pedal edema+, DP pulse palpable. She denied pain at the site. Xeroform was reapplied today per Dr. Guevara's orders. The foot was elevated on pillows as no offloading boot was available. Wound care note; Please make sure the MILY wrap extends from the base of the toes up to just below her knee so that edema is not increased above and below the wrap. She may benefit from a Wound Care consult for compression stockings. Physical therapy states there are zipped up stocking that could be used instead. For discharge, if multi-day dressing recommendations are needed could transition the dressing to mepilex (foam border) with medihoney gel if available. This can be changed 2-3 x weekly. She should also be provided offloading boots if available, to be used when in bed to relieve pressure to the heels. (5) Decubitus ulcer of sacral region Impression: was present prior to admission , being cared for at [facility] and likely aggravated by sitting in tub unknown duration. Shallow as per photo, doesnot appear infected continue offloading w/ side to side position change/ upright and mipelex (6) Raynaud's phenomenon Impression: Resolved Cyanotic discoloration to both hands, including her palms and digits on presentation May have been related to volume depletion, hypoglycemia; Resolved. e Qualified Code(s): I73.00 - Raynaud's syndrome without gangrene (#) Constipation resolved Impression: Resolved Significant stool evacuated after cathartics on admit Continue senna, miralax bowel regimen prn CT abdomen also showed an apparent area of wall thickening and narrowing involving the distal descending colon w/ a differential diagnosis including long segment stricture, neoplasm, and artifact for peristalsis. Radiologist report suggests to consider a dedicated colonoscopy for further evaluation (pursue as outpatient). (#)Volume Depletion (not dedydration) BUN/Cr 44/<1 on admit; resolved w/ volume repletion. (#) Neglect of personal hygiene resolved Impression: Poor hygeine on presentaion. Marked improvement w/ nursing care (prior notes; odiferous and unkempt upon admission. Had help w/ legs 3x/week, but they do not help with bathing. Per MEGHA Bond, wheelchair-bound for some time and not following up with recommended PT rehab after knee injury/foot injurye, but appears to have some self neglect. -Patient's current caregiver, Eli Rodriguez ([phone]), and former caregiver Anamaria Carrington ([phone]), estimate very long time since patient actually last bathed. 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 Per prior notes; thick crusted surface on skin neck to legs; resolvd/ cleaned off by RN's/HORSE RIDER's over initial few days w/ bathing ,emollients (#) Disorganized thought process Resolved. (Much improved since admission, Sometimes still w/ tangential pressure speech (not new per step daughter Ronda [place] per prior notes ) who described her as "always been verbal and erratic, worse since pandemic Telehealth psychiatry consult indicated no psychiatric disturbance, despite her presentation of occasional delisions and hallucinations. (See HPI note) (#) No cellulitis/ stasis dermatitis Impression: Resolved. Elevation and compression
[2020-10-14] MEDS: ATORVASTATIN 40 MG TABLET PO SCH (20:52)
[2020-10-14] MEDS: LATANOPROST 0.005% OPHTH DROPS EACHEYE SCH (20:54)
[2020-10-15] MEDS: SODIUM CHLORIDE FLUSH 0.9% 10 ML SYRINGE IVP SCH ×3 (00:17→17:11)
[2020-10-15] MEDS: BRINZOLAMIDE RIGHTEYE SCH ×3 (06:23→21:00)
[2020-10-15] MEDS: BRIMONIDINE TART RIGHTEYE SCH ×3 (06:23→21:00)
[2020-10-15] MEDS: polyethylene glycoL 3350 17 GM PACKET PO SCH (08:01)
[2020-10-15] MEDS: ASPIRIN EC 81 MG TABLET PO SCH (08:01)
[2020-10-15] MEDS: DOCUSATE SODIUM 250 MG CAPSULE PO SCH (08:02)
[2020-10-15] MEDS: amLODIPine 5 MG TABLET PO SCH (08:02)
[2020-10-15] MEDS: lisinopriL 20 MG TABLET PO SCH ×2 (08:02→20:58)
[2020-10-15] MEDS: SENNA 8.6 MG TABLET PO SCH (08:03)
[2020-10-15] MEDS: atenoloL 25 MG TABLET PO SCH (08:03)
[2020-10-15] MEDS: AMMONIUM LACTATE 227 GM BOTTLE TOP SCH ×2 (08:04→20:59)
[2020-10-15] MEDS: INSULIN ASPART 300 UNIT/3 ML PEN SUBQ SCH ×4 (08:04→20:58)
[2020-10-15] MEDS: TIMOLOL 0.5% OPHTH DROPS EACHEYE SCH ×2 (08:04→20:57)
[2020-10-15] MEDS: ENOXAPARIN 80 MG/0.8 ML SYRINGE SUBQ SCH ×2 (08:04→20:58)
[2020-10-15] MEDS: NYSTATIN POWDER 15 GM TOP SCH ×2 (08:08→21:00)
--- NOTE | 2020-10-15 10:57 | PROVIDER PROGRESS NOTE ---
Subjective - Prog Note Date Prog Note Date: 10/15/20 Prog Note Time: 09:00 - Subjective Pt reports feeling: No change ("I always lie on my side, I never lie on my tailbone at home" No new complaints Per PT patient able to get up to stand w/ 2 person assist yesterday. Later in day "its always the same thing, they say sit up for 2 hrs and it turns into 3 hours) Current Medications - Current Medications Current Medications: Active Medications Generic Name Dose Route Start Last Admin Trade Name Freq PRN Reason Stop Dose Admin Acetaminophen 650 mg 10/07/20 14:06 Acetaminophen 325 Mg Tablet PO Q4HR PRN Pain 1 to 4 Amlodipine Besylate 10 mg 10/11/20 09:00 10/15/20 08:02 Amlodipine 5 Mg Tablet PO 10 mg DAILY NANCY Administration Aspirin 81 mg 10/08/20 09:00 10/15/20 08:01 Aspirin Ec 81 Mg Tablet PO 81 mg DAILY NANCY Administration Atenolol 50 mg 10/08/20 09:00 10/15/20 08:03 Atenolol 25 Mg Tablet PO 50 mg DAILY NANCY Administration Atorvastatin Calcium 40 mg 10/09/20 16:41 10/14/20 20:52 Atorvastatin 40 Mg Tablet PO 40 mg QPM NANCY Administration Bisacodyl 10 mg 10/08/20 17:47 10/09/20 00:10 Bisacodyl 10 Mg Supp HI 10 mg DAILY PRN Administration Constipation Docusate Sodium 250 - 500 mg 10/08/20 09:00 10/15/20 08:02 Docusate Sodium 250 Mg Capsule PO 250 mg DAILY NANCY Administration Enoxaparin Sodium 80 mg 10/09/20 21:00 10/15/20 08:04 Enoxaparin 80 Mg/0.8 Ml Syringe SUBQ 80 mg BID NANCY Administration Insulin Aspart 2 - 10 unit 10/10/20 12:00 10/15/20 08:04 Insulin Aspart 300 Unit/3 Ml Pen SUBQ Not Given 0800,1200,1700,2100 [facility] Protocol Lactic Acid 1 gm 10/09/20 10:30 10/15/20 08:04 Ammonium Lactate 227 Gm Bottle TOP 1 gm BID NANCY Administration Latanoprost 1 drops 10/13/20 21:00 10/14/20 20:54 Latanoprost 0.005% Ophth Drops EACHEYE 1 drops QPM NANCY Administration Lisinopril 20 mg 10/08/20 09:00 10/15/20 08:02 Lisinopril 20 Mg Tablet PO 20 mg BID NANCY Administration Nystatin 1 applic 10/07/20 21:00 10/15/20 08:08 Nystatin Powder 15 Gm TOP 1 applic BID NANCY Administration Ondansetron HCl 4 mg 10/07/20 14:06 Ondansetron Odt 4 Mg Tablet TL Q6HR PRN Nausea / Vomiting Ondansetron HCl 4 mg 10/07/20 14:06 Ondansetron 4 Mg/2 Ml Vial IVP Q6HR PRN Nausea / Vomiting Oxycodone HCl 5 mg 10/07/20 14:06 Oxycodone 5 Mg Tablet PO Q4HR PRN Pain 5 to 7 Patient Own 1 each 10/08/20 14:00 10/15/20 06:23 Brinzolamide/ RIGHTEYE 1 each Brimonidine Tart [ TID NANCY Administration Simbrinza 1%-0.2% Eye Drops Polyethylene Glycol 17 gm 10/08/20 09:00 10/15/20 08:01 Polyethylene Glycol 3350 17 Gm Packet PO 17 gm DAILY NACNY Administration Senna 8.6 - 17.2 mg 10/13/20 08:00 10/15/20 08:03 Senna 8.6 Mg Tablet PO 8.6 mg DAILY NANCY Administration Sodium Chloride 10 ml 10/07/20 14:06 10/11/20 12:01 Sodium Chloride Flush 0.9% 10 Ml Syringe IVP 10 ml PRN PRN Administration NEEDED PER PROVIDER ORDERS Sodium Chloride 10 ml 10/07/20 17:00 10/15/20 08:06 Sodium Chloride Flush 0.9% 10 Ml Syringe IVP 10 ml 0100,0900,1700 NANCY Administration Timolol Maleate 1 drops 10/08/20 09:00 10/15/20 08:04 Timolol 0.5% Ophth Drops EACHEYE 1 drops BID NANCY Administration Aspirin [Aspir-Low] 81 mg PO DAILY 01/07/16 Atenolol 50 mg PO DAILY 01/07/16 Lisinopril 20 mg PO BID 01/07/16 Insulin Glargine,Hum.rec.anlog [Lantus] 45 unit SQ QPM 07/15/16 Simvastatin 20 mg PO QPM 11/30/16 Timolol 0.5% Ophth Drops [Timoptic 0.5% Ophth Drops] 1 drops EACHEYE BID 11/30/16 amLODIPine [Norvasc] 5 mg DAILY 11/30/16 metFORMIN [Glucophage] 1,275 mg PO DAILY 11/30/16 Multivit-Min/Iron/Folic Acid/K [Multi-Day Plus Minerals Tablet] 1 tab PO DAILY 02/07/17 Brinzolamide/Brimonidine Tart [Simbrinza 1%-0.2% Eye Drops] 1 drops RIGHTEYE TID 10/07/20 metFORMIN [Glucophage] 850 mg PO QPM 10/07/20 Objective - Vital Signs/Intake & Output Reviewed Vital Signs: Yes Vital Signs: Vital Signs x48h Temp Pulse Resp BP Pulse Ox 10/15/20 07:30 36.9 C 67 20 147/51 H 96 10/15/20 05:00 37.1 C 66 18 151/62 H 94 Intake & Output: Intake & Output 10/12/20 10/13/20 10/14/20 10/15/20 23:59 23:59 23:59 23:59 Intake Total 2060 796 860 472 Output Total 1300 1700 350 Balance 760 -904 510 472 - Objective General Appearance: positive: No acute distress, Alert (lying in bed when I first saw her on side w/ adult pad being changed by [employer] TRA[employer]IST, in afternoon sitting up in wheelchair watching TV), Other (somewhat pressured speech) Eyes Bilateral: positive: Normal inspection (very slight conjunctival erythema, nontender per pt, no crusting), PERRL, EOMI Respiratory: positive: Chest non-tender, No respiratory distress, Breath sounds nml (reduced in bases) Cardiovascular: positive: Regular rate & rhythm, No murmur Abdomen: positive: Non-tender, Nml bowel sounds, Other (obese, adult pad on) Skin: positive: Warm, Skin rash, Other (sacral wound covered/ mepilex intact, no drainage, light pink erythema surrounding) Extremities: positive: Pedal edema (when dependent, bilateral 3+ pedal edema, bilateral MILY wraps on) Neurologic/Psychiatric: positive: Oriented x3. negative: Motor nml (needs heavy assist of 2 to get oob), Mood/affect nml (as noted somewhat anxious pressure speech as per prior notes) - Lab Results Fish Bones: 10/14/20 04:36 10/14/20 04:36 Other Labs: Lab Results x24hrs 10/15/20 10/14/20 10/14/20 Range/Units 07:13 16:46 07:19 POC Whole Bld Glucose 124 H 160 H 126 H (70 - 100) mg/dL 10/13/20 10/13/20 10/13/20 Range/Units 20:25 16:30 11:32 POC Whole Bld Glucose 150 H 137 H 182 H (70 - 100) mg/dL 10/13/20 10/12/20 10/12/20 Range/Units 07:34 20:38 16:47 POC Whole Bld Glucose 129 H 167 H 150 H (70 - 100) mg/dL 10/12/20 10/12/20 10/11/20 Range/Units 11:21 07:26 20:36 POC Whole Bld Glucose 171 H 120 H 176 H (70 - 100) mg/dL 10/11/20 10/11/20 10/11/20 Range/Units 16:29 11:32 07:40 POC Whole Bld Glucose 146 H 160 H 133 H (70 - 100) mg/dL 10/10/20 10/10/20 10/10/20 Range/Units 20:45 16:24 11:01 POC Whole Bld Glucose 223 H 146 H 180 H (70 - 100) mg/dL Sepsis Event Note (H) - Evaluation Current Stage of Sepsis: Ruled out Assessment/Plan - Problem List (1) Diabetes mellitus with complication Impression: Several days of FSBG in very reasonable range (140-180) w/ rare need for correction dose seem to confirm suspicion that her presentation was related to hypoglycemia ("iatrogenic" from insulin greater than metabolic requirement) Plan; on discharge she will AT MOST be on metformin, but I am not adding at this time. No indication for insulin (Presented after after being found down in her tub, hypothermic and hypoglycemic. Had been on Lantus 45 units qpm and metformin. At home she does not check her sugars more than twice a week.Since admission she has not needed much sliding scale insulin. She has gotten2 units at most, maybe 2 or 3 times a day. A1c is 5.9% . (2) Altered mental status Impression: Resolved. She is back to baseline. On prior days she had extremely tangential comments (see prior notes), she is garrulous, tangential but not to the extreme w/me A telepsych consult several days ago did not feel she was cognitively impaired , no psychosis/roselia, ok medical decision making capacity per consult Normal head CT (3) NSTEMI (non-ST elevated myocardial infarction) resolved Impression: Troponin 99.7 10/08>>380.2 10/09/20, >> 442.6 on 10/09 accompanied by tachycardia in the low 100's. No associated CP, diaphoresis, jaw/arm pain, nausea or sweats On ASA, completed therapeutic dose lovenox x 3 days Consider outpatient cath but she is not interested. on BB (atenolol), ASA, statin, and ACEI (and additional agent for BP control) (4) Suspected deep tissue injury/R heel pressure ulcer Impression: S/p sharp debridement by Dr. Guevara 10/10. I did not see wound today; continuing w/ xeroform dressing. No concerns for infection at this time. Ped al edema+, DP pulse palpable. No pain. Continue offloading heels. we plan to Continue to float the heels with her legs on pillows and the heels in the air at all times while she is in bed. Continue Wound Care per Dr. Guevara' orders: Xeroform and gauze and MILY wrap daily. "Please make sure the MILY wrap extends from the base of the toes up to just below her knee so that edema is not increased above and below the wrap. mMay benefit from a Wound Care consult for compression stockings. For discharge, if multi-day dressing recommendations are needed could transition the dressing to mepilex (foam border) with medihoney gel if available. That could be changed 2-3 x weekly. She should also be provided offloading boots if available, to be used when in bed to relieve pressure to the heels. (5) Decubitus ulcer of sacral region Impression: Hx of sacral pressure injury for which she was receiving care at [facility]. Likely aggravated with prolonged pressure on hard surface when in tub for unclear duration. Admission photos; pale and pink healing tissue Continue sidelying position/ change q 2 as possible, continue mipalex dressing Encouraging that her mobility was improved per PT report from yesterday (#) Raynaud's phenomenon no discoloration curretnly to digits chronic, needs no acute attention (#) onstipation resolved Impression: Resolved. continue bowel regimen (#) Abnormal urine findings Impression: Resolved. No UTI; initial urine sample had squamous cells (#) Volume depletion on presentation (not Dehydration) resolved No hypernatremia BUN 44/Cr <1 on presentation; more consistent with VOLUME depletion than dehyration (#) Neglect of personal hygiene resolved resolved (#) Stasis dermatitis; mild Did not have cellulitis; (initially suspected, but more c/w stasis dermatitis) Legs elevated and w/ compression prn
[2020-10-15] MEDS: ATORVASTATIN 40 MG TABLET PO SCH (20:58)
[2020-10-15] MEDS: LATANOPROST 0.005% OPHTH DROPS EACHEYE SCH (21:00)
[2020-10-16] MEDS: SODIUM CHLORIDE FLUSH 0.9% 10 ML SYRINGE IVP SCH (00:24)
[2020-10-16] MEDS: BRINZOLAMIDE RIGHTEYE SCH (05:52)
[2020-10-16] MEDS: BRIMONIDINE TART RIGHTEYE SCH (05:52)
--- NOTE | 2020-10-16 07:44 | Discharge Plan ---
"Discharge Plan for SNF / [place] - Discharge Plan And Transition Orders Problem Reviewed?: Yes Disposition: [address] [facility] DC/Xfer Condition: Stable Allergies and Adverse Reactions: Allergies Allergy/AdvReac Type Severity Reaction Status Date / Time No Known Drug Allergies Allergy Unverified 10/07/20 11:49 Health Concerns: 1) Physical deconditioning 2) NSTEMI 3) Diabetes mellitus with complication 4)heel decubiti/deep tissue injury 5) sacral decubitus 6) Altered mentation/found down in tub at admit 7) Neglect of personal hygiene Plan of Treatment: 1) Physical deconditioning; evaluated by PT and improving, recommended D/C to SNF for rehab 2) NSTEMI: on beta talisha, ASA, low dose ACEI (and amlodipine for HtN); Consider outpatient cath/cardiology consult (patient not interested currently 3) Diabetes mellitus with complication (hypoglycemia): STOP insulin A1C 5.9. Does not need POC finger stick; running 117-170 [place] ~ 120) 4)heel decubiti/deep tissue injury ; daily xeroform and cling as per instructions below 5) sacral decubitus (superficial); off load, mipilex dressing 6); altered mentation/ found down in tub at admit; likely related to hypoglycemia. above insulin stopped 7) Constipation; resolved ; on bowel regimen 8) Neglect of personal hygiene; resolved/ w/ bathing Care Goals: Maximize physical mobility/ functional status Minimize pressure to sacrum and R heel for wound healing - SNF / PENITENTI[facility] Transition Orders Admit to (Facility): [facility] (with planned d/c to [facility] thereafter) Discharge Diagnosis: Altered mental status and disorganized thought process due to hypoglycemia (at baseline she is tangential) Volume depletion; resolved NSTEMI/CAD stable on medical management (pt not interested in cath currently) Neglect of personal hygiene/ resolved w/ hygiene intervention by nursing staff Constipation; resolved on bowel regimen Physical deconditioning/ PT and dc to [facility] facility Overcontrolled DM as outpatient w/ hypoglycemia (45 units lantus / metformin; A1C 5.9); insulin entirely stopped, only metformin and diet control now Medicare Certification Statement: I certify that Post Hospital detention care is medically necessary on a continuing basis for any of the conditions for which she/he is receiving care during hospitalization. Notify PCP of admission and forward orders to primary provider for signature. Weight on admission and: Weekly Other Notification Orders: Call PCP immediately if patient develops dyspnea, chest pain/tightness or edema. House Bowel Program: Yes Additional Bowel Program Orders: If no BM after 2 days, nurse may give M.O.M. 30ml PO PRN and/or ducolax Supp 1 IA and/or MORGAN 250mg P.O., and/or senna 1-2 tabs PO. On day 3 nurse may give repeat above order until residents constipation is resolved. Annual Influenza Vaccine (between Oct 22 and May 21): Yes Two-step PPD per [facility] [id number] or approved exception documents: Yes Treatments & Other Orders: Physical Therapy; maximize functional status. sacral wound (shallow): Mipelex; side to side position in bed. Right heel decubitus: offload with pillows OR waffle boots/offloading boot if available. Xeroform gauze and MILY wrap daily. Ensure the MILY wrap extends from the base of the toes up to just below her knee so that edema is not increased above and below the wrap. She may benefit from a Wound Care consult for compression stockings. Oxygen Orders: none Lab Tests or X-ray Orders: none, consider outpatient cardiology/cath (patient not interested) Medication Orders: PLEASE REFER TO THE DISCHARGE MEDICATION LIST. Insulin Orders?: No - Diet Type: No added salt Liquids: Thin May have monthly special meal: Yes - Therapies | Activity Therapy: Evaluation | Treat if indicated: PT Rehabilitation Potential: Maximize functional status Activity: Activity as Tolerated Weight Bearing: Full Weight Assistance Devices: Wheelchair"
--- NOTE | 2020-10-16 09:13 | DISCHARGE SUMMARY ---
Discharge Summary Admit Date: 10/07/20 Discharge Date: 10/16/20 Discharging Provider: CISCO Martinez Primary Care Provider: Dr Flynn Sotelo Code Status: Attempt Resuscitation Condition at Discharge: Stable Discharge Disposition: 03 SNF DC/Xfer Discharge Facility Name: [facility] - DIAGNOSES Admission Diagnoses: Altered mental status and disorganized thought process Dehydration Abnormal urine findings Neglect of personal hygiene Decubitus ; sacral region Elevated troponin Discharge Diagnoses with Status of Each Condition: Altered mental status and disorganized thought process At baseline mentation (which is often tangential and somewhat pressured speech); Overcontrolled DM/ hypoglycemia likely cause of being down in bathtub Volume depletion (not dehydration); resolved w/ volume repletion Abnormal urine findings; no UTI Neglect of personal hygiene/acquired ichthysis; flaking skin resolved/ marked improvement after hygiene routine / bathing by nursing staff in hospital Decubitus ; sacral region ; NSTEMI; /CAD stable, troponin peaked at 442.6 on 10/09, medically managed, patient not interested in cath Constipation; resolved on bowel regimen Physical deconditioning; improving with PT, but requires DM "overcontrolled" as outpatient, A1C 5.9. Now just on pm metformin - HPI History of Present Illness: HPI is limited due to patient being a poor historian with probable altered mental status. The patient is and lives at home alone, but stays in regular contact with her step children who live in other [place]. After her current caregiver Eli and former caregiver Anamaria were unable to reach the patient on the phone on Tuesday, they became concerned and called in a welfare check. The patient was subsequently discovered down inside of her (otherwise empty) bathtub during the welfare check. She does not know why she was in the bathtub, nor how long she was there. Upon presentation to the ED, the patient appears alert but with markedly tangential, pressured speech, making it especially challenging to obtain a clear history. When asked a question, she does not provide an exact answer. Her DPOA, step-daughter Ronda, states that she has always been quite verbal but that after her she became slightly more tangential. Ronda states she has not been able to visit the patient since before the pandemic, at which time Ronda and her brother noted that the patient's home "was stinky" and they tried to clean as best they could. Since the pandemic, Ronda states the patient has be come much more verbal and scattered in her speech. Ronda very appropriately describes her step-mother's speech pattern as "like you're flipping through radio stations." To her knowledge, the patient has no known psychiatric history. Ronda states that the patient is very intelligent and knows that her speech is erratic, but is typically aware of what she is saying. Indeed, while speaking to the patient she makes statements congruent with reality and current events (eg, "Is there a TV in this room? I want to watch the news; Pataniluanne isn't doing well"), but she also makes statements that are difficult to follow and may suggest she is having hallucinations (eg, "I was on a boat trip- there were squiggly bugs and they harass people like the [employer] movie, and then it was real life and someone said they perceived them as very thick and then I was like, ' Ooooh!'"). Of note, Ronda reports that the patient is very hesitant about "being trans ferred to a facility." Apparently some time in 2018 she was hospitalized for being found down and was placed in a facility upon discharge and "a health and social care teacher took her two dogs away- the dogs were like her children; she was heartbroken." The patient has reportedly told Ronda on several occasions that she doesn't want to be in a facility and is worried "about them giving her drugs that alter her thinking and taking away her autonomy." The patient has been admitted after being found down at home for an unknown period of time with altered mental status, pressured speech, and possible self neglect. - CONSULTS | PROCEDURES Consultations: Dr Frank Guevara Procedures: bedside sharp debridement of R heel eschar 10/10/20 - HOSPITAL COURSE Hospital Course: 1 Diabetes Mellitus with complication (hypoglycemia) as cause of altered mental status (Presented after after being found down in her tub, hypothermic and hypoglycemic. Had been on Lantus 45 units qpm and metformin. .Since admission lantus was held she has not needed much sliding scale insulin. She has gotten2 units at most, maybe 2 or 3 times a day. A1c is 5.9% . Several days of FSBG in very reasonable range (140-180) w/ rare need for correction dose seem to confirm suspicion that her presentation was related to hypoglycemia ("iatrogenic" from insulin greater than metabolic requirement) Plan; on discharge she will be on metformin 850 qpm; reevaluate, No indication for insulin (2) Altered mental status Impression: Resolved. She is back to baseline as above She at times has extremely tangential comments (see prior progress notes), she is garrulous, tangential A telepsych consult several days ago did not feel she was cognitively impaired , no psychosis/roselia, ok medical decision making capacity per consult Normal head CT (3) NSTEMI (non-ST elevated myocardial infarction) resolved Impression: Troponin 99.7 10/08>>380.2 10/09/20, >> 442.6 on 10/09 accompanied by tachycardia in the low 100's. No associated CP, diaphoresis, jaw/arm pain, nausea or sweats On ASA, completed therapeutic dose lovenox Consider outpatient cath. (patient not interested_) on BB (atenolol) , ASA, and ACEI statin(and amlodipine for BP as well) (4) Right heel decub/R heel eschar/pressure wound Impression: Present on admission; No concern for infection, palpable pulses Sharp debridement by Dr. Guevara 10/10/20. Plan; offload with pillows OR waffle boots/offloading boot if available Xeroform gauze and MILY wrap daily Ensure the MILY wrap extends from the base of the toes up to just below her knee so that edema is not increased above and below the wrap. - could transition the dressing to mepilex (foam border) with medihoney gel if available. This can be changed 2-3 x weekly She may benefit from a Wound Care consult for compression stockings. (Wound appearance on 10/16; The tissue remains maroon and dark, non-blanching, and may be evolving to eschar. Edges are attached and there is minimal periwound erythema. ) (5) Decubitus ulcer of sacral region Present before admission/ was receiving care at [facility]. Likely aggravated with prolonged pressure on hard surface when in tub for unclear duration. not deep/ superficial sloughing without full thickness ulcer Admission photos; pale and pink healing tissue Continue sidelying position/ change q 2 as possible, continue mipalex dressing Encouraging that her mobility was improved per PT report from yesterday (#) Constipation resolved on bowel regimen (#) Abnormal urine findings Resolved Initial U/A concentrated and "dirty" sample w/ squamous cells Repeat sample ; unremarkable No UTI or other (#) Volume depletion on presentation (not Dehydration) resolved No hypernatremia BUN 44/Cr <1 on presentation; more consistent with VOLUME depletion than dehyration (#) Neglect of personal hygiene resolved resolved (#) Stasis dermatitis; mild Did not have cellulitis; (initially suspected, but more c/w stasis dermatitis) Legs elevated and w/ compression prn - ALLERGIES Allergies/Adverse Reactions: Allergies Allergy/AdvReac Type Severity Reaction Status Date / Time No Known Drug Allergies Allergy Unverified 10/07/20 11:49 - MEDICATIONS Home Medications: Ambulatory Orders Medication Instructions Recorded Confirmed Aspirin [Aspir-Low] 81 mg PO DAILY 01/07/16 10/07/20 Atenolol 50 mg PO DAILY 01/07/16 10/07/20 Lisinopril 20 mg PO BID 01/07/16 10/07/20 Simvastatin 20 mg PO QPM 11/30/16 10/07/20 Timolol 0.5% Ophth Drops [Timoptic 1 drops EACHEYE BID 11/30/16 10/07/20 0.5% Ophth Drops] Multivit-Min/Iron/Folic Acid/K 1 tab PO DAILY 02/07/17 10/07/20 [Multi-Day Plus Minerals Tablet] Brinzolamide/Brimonidine Tart 1 drops RIGHTEYE TID 10/07/20 10/07/20 [Simbrinza 1%-0.2% Eye Drops] metFORMIN [Glucophage] 850 mg PO QPM 10/07/20 10/07/20 Acetaminophen [Tylenol] 650 mg PO Q4HR PRN tablet 10/16/20 Nystatin [Nystop] 1 applic TOP BID bottle 10/16/20 Senna [Senokot] 8.6 - 17.2 mg PO DAILY tablet 10/16/20 amLODIPine [Norvasc] 10 mg ORAL DAILY #0 10/16/20 10/07/20 polyethylene glycoL 3350 [Miralax] 17 gm PO DAILY packet 10/16/20 - PHYSICAL EXAM AT DISCHARGE General Appearance: positive: No acute distress, Alert, Mild distress, Other (garrulous (as baseline)) Eyes Bilateral: positive: Normal inspection (other than slight conjunctival pinkness (nontender, no drainage)), PERRL, EOMI ENT: positive: ENT inspection nml Neck: positive: Other (Full neck) Respiratory: positive: Chest non-tender, No respiratory distress, Breath sounds nml Cardiovascular: positive: Regular rate & rhythm, No murmur Abdomen: positive: Nml bowel sounds, No distention, Other (obese, adult pad on) Skin: positive: Warm, Dry Extremities: positive: Pedal edema (+2 R pedal edema, R LE in ACEI wrap, dependent rubor on R. mild bilateral melgoza erythema, nontender,) Neurologic/Psychiatric: positive: Oriented x3, Motor nml (feeds self without difficulty, known physcial deconditoining re: LE strenghty). negative: Mood/affect nml (somewhat pressured speech (re her home wheelchair etc) ; is at baseline) - LABS Result Diagrams: 10/14/20 04:36 10/14/20 04:36 - SEPSIS Current Stage of Sepsis: Ruled out - TIME SPENT Time Spent in Discharge (Minutes): 45 (greater than 45 mins plan d/w patient, exam)
[2020-10-16] MEDS: ASPIRIN EC 81 MG TABLET PO SCH (10:12)
[2020-10-16] MEDS: atenoloL 25 MG TABLET PO SCH (10:12)
[2020-10-16] MEDS: polyethylene glycoL 3350 17 GM PACKET PO SCH (10:12)
[2020-10-16] MEDS: lisinopriL 20 MG TABLET PO SCH (10:13)
[2020-10-16] MEDS: DOCUSATE SODIUM 250 MG CAPSULE PO SCH (10:13)
[2020-10-16] MEDS: amLODIPine 5 MG TABLET PO SCH (10:13)
[2020-10-16] MEDS: AMMONIUM LACTATE 227 GM BOTTLE TOP SCH (10:14)
[2020-10-16] MEDS: SENNA 8.6 MG TABLET PO SCH (10:14)
[2020-10-16] MEDS: TIMOLOL 0.5% OPHTH DROPS EACHEYE SCH (10:15)
[2020-10-16] MEDS: NYSTATIN POWDER 15 GM TOP SCH (10:15)
[2020-10-16] MEDS: ENOXAPARIN 80 MG/0.8 ML SYRINGE SUBQ SCH (10:16)
[2020-10-16] MEDS: INSULIN ASPART 300 UNIT/3 ML PEN SUBQ SCH (10:16)
[2020-10-16 11:29] LABS: B. PARAPERTUSSIS- RESP PCR PAN NOT DETECTED; B. PERTUSSIS- RESP PCR PANEL NOT DETECTED; C. PNEUMONIAE- RESP PCR PANEL NOT DETECTED; CORONAVIRUS 229E-RESP PCR NOT DETECTED; CORONAVIRUS HKU1-RESP PCR NOT DETECTED; CORONAVIRUS NL63-RESP PCR NOT DETECTED; CORONAVIRUS OC43-RESP PCR NOT DETECTED; HUMAN METAPNEUMOVIRUS NOT DETECTED; INFLUENZA A- RESP PCR PANEL NOT DETECTED; INFLUENZA B - RESP PCR PANEL NOT DETECTED; M. PNEUMONIAE- RESP PCR PANEL NOT DETECTED; PARAINFLUENZA VIRUS 1 NOT DETECTED; PARAINFLUENZA VIRUS 2 NOT DETECTED; PARAINFLUENZA VIRUS 3 NOT DETECTED; PARAINFLUENZA VIRUS 4 NOT DETECTED; RHINOVIRUS/ENTEROVIRUS NOT DETECTED; RSV- RESP PCR PANEL NOT DETECTED; SARS-CoV-2 -RESP PCR PANEL NOT DETECTED
[2020-10-16 11:46] VITALS: BP 145/47
== END 2020-10-16 12:30 | DRG 637 ==
LOC: EDUNIT# → ED 11:40 → MS2 14:06 → OBSVTOIN 10-08 16:14
PROVIDERS: ADMIT Specialist; ATTEND Nurse Practitioner
PROC: 0HBMXZZ Excision of Right Foot Skin, External Approach (ICD-10-PCS; principal; 2020-10-10)
DX: E11.649 Type 2 diabetes mellitus with hypoglycemia without coma (principal); I21.4 Non-ST elevation (NSTEMI) myocardial infarction; G93.41 Metabolic encephalopathy; Z79.4 Long term (current) use of insulin; E11.9 Type 2 diabetes mellitus without complications; R41.82 Altered mental status, unspecified; E86.9 Volume depletion, unspecified; D72.829 Elevated white blood cell count, unspecified; E86.0 Dehydration; R77.8 Other specified abnormalities of plasma proteins; L85.0 Acquired ichthyosis; Z20.822 Contact with and (suspected) exposure to COVID-19; R74.8 Abnormal levels of other serum enzymes; E11.621 Type 2 diabetes mellitus with foot ulcer; L89.159 Pressure ulcer of sacral region, unspecified stage; I25.10 Atherosclerotic heart disease of native coronary artery without angina pectoris; L30.9 Dermatitis, unspecified; K59.00 Constipation, unspecified; H15.003 Unspecified scleritis, bilateral; Z91.128 Patient's intentional underdosing of medication regimen for other reason; R53.1 Weakness; I87.2 Venous insufficiency (chronic) (peripheral); I10 Essential (primary) hypertension; Z66 Do not resuscitate; R35.0 Frequency of micturition; L98.9 Disorder of the skin and subcutaneous tissue, unspecified; Z99.3 Dependence on wheelchair; I73.00 Raynaud's syndrome without gangrene; E78.00 Pure hypercholesterolemia, unspecified; L89.152 Pressure ulcer of sacral region, stage 2; F22 Delusional disorders; R01.1 Cardiac murmur, unspecified; L30.4 Erythema intertrigo; F03.90 Unspecified dementia, unspecified severity, without behavioral disturbance, psychotic disturbance, mood disturbance, and anxiety; L89.616 Pressure-induced deep tissue damage of right heel
CPT/HCPCS: 36415; 51701; 70450; 71045; 74177; 80048; 80053; 81001; 82550; 83036; 83605; 83690; 84443; 84484; 85025; 87631; 93005; 93306; 96360; 96372; 97110; 97162; 97166; 97530; 97535; 99283; 99285; A9270; G0378; G0426; J1650; Q9967; 0202U; 81003; 87086; 90836